=== PATIENT | male | born 1930 | race African-American/Black ===

== ENCOUNTER → 2016-05-07 | Outpatient (CLI) | payer MEDICARE, OTHER ==
[~2016-05-07] MED LIST: ASP81TEC PO; BENA10TA2 PO; BISA5TAB8 PO; BNZ10T PO; CIPR-225 PO; CIPR400P13 IV; CIPR500S2 PO; CIPR500T78 PO; CLIN150C17 PO; CLIN300C11 PO; CLOP75TA PO; DCS100C PO; DONE10TA5 PO; EZET10TA23 PO; EZET1TAB44 PO; FNT.05A2 IV; FURO40TA4 PO; GLYB1.253 PO; GLYB5TAB6 PO; GLYBURIDE; HYDR-3714 PO; HYDR-3812 PO; HYDR-707 PO; HYDR-757 PO; L.AC1CAP6 PO; LACT1CAP62 PO; LEVO500T2 PO; MEMA7CAP PO; METO-333 PO; METR500P4 IV; METR500T21 PO; MGCT300B PO; MULT-974 PO; NF-METANX PO; NITR-65 PO; NORM2DIS3 IV; OMEG-12 PO; OMEG-160 PO; ONDA4VIA28 IV; PANT40VI IV; POTA-51 PO; POTA20PA11 PO; SIMV40TA4 PO; VANC750V IV; [UNRECOGNIZED DRUG - CODE] TP
--- OUTSIDE RECORDS SUMMARY | 2016-05-07 10:13 | XMS REPORT | Continuity of Care Document ---
Author Author [facility] Organization [facility] Address Unknown Phone Unavailable Care Team Providers Care Chick Room Supervisor Name Role Phone Self, Referral PCP Unavailable Source Comments Some departments are not documenting in the electronic medical record. If you do not see the information that you expected, contact Release of Information in the Health Information Management department at [phone] for further assistance in locating additional records.[facility] Active Allergies and Adverse Reactions Not on File Current Medications Not on file Active Problems Not on file Social History Tobacco Use Types Packs/Day Years Used Date Never Assessed Plan of Care Health Maintenance Due Date Last Done Comments Physical (Comprehensive) 1936 Exam Pertussis Vaccine 1940 Tetanus Vaccine 1946 Shingles Vaccine 1989 Prevnar/Pneumovax (#1) 1994 Influenza Vaccine 11/02/2014 Results from Last 3 Months Not on file
[2016-05-07 10:24] LABS: BASOPHILS % (AUTO) 0 % (0-10); EOSINOPHILS # (AUTO) 0.3 10^3/uL (0.0-0.3); EOSINOPHILS % (AUTO) 4 % (0-10); LYMPHOCYTES # (AUTO) 2.2 X 10^3 (1.0-4.0); LYMPHOCYTES % (AUTO) 24 % (12-44); MEAN CORPUSCULAR HEMOGLOBIN 29 PG (25-34); MEAN CORPUSCULAR HGB CONC 32 G/DL (32-36); MEAN CORPUSCULAR VOLUME 90 FL (80-99); MEAN PLATELET VOLUME 9.5 FL (7.4-10.4); MONOCYTES # (AUTO) 0.8 X 10^3 (0.0-1.0); MONOCYTES % (AUTO) 9 % (0-12); NEUTROPHILS # (AUTO) 5.6 X 10^3 (1.8-7.8); NEUTROPHILS % (AUTO) 63 % (42-75); PLATELET COUNT 215 10^3/uL (130-400); RED BLOOD COUNT 4.11 10^6/uL (4.35-5.85); RED CELL DISTRIBUTION WIDTH 13.9 % (10.0-14.5)
[2016-05-07 10:53] LABS: ALANINE AMINOTRANSFERASE 19 U/L (0-55); ALBUMIN 3.4 G/DL (3.2-4.5); ANION GAP 13 MMOL/L (5-14); ASPARTATE AMINO TRANSFERASE 26 U/L (5-34); BILIRUBIN,TOTAL 0.8 MG/DL (0.1-1.0); BLOOD UREA NITROGEN 8 MG/DL (7-18); BUN/CREATININE RATIO 7; CALCIUM 8.8 MG/DL (8.5-10.1); CARBON DIOXIDE 26 MMOL/L (21-32); CHLORIDE 104 MMOL/L (98-107); CHOLESTEROL 172 MG/DL (< 200); CREATININE SERUM 1.08 MG/DL (0.60-1.30); DIRECT LDL 107 MG/DL (1-129); GFR ESTIMATED > 60; GLUCOSE 106 MG/DL (70-105); POTASSIUM 3.5 MMOL/L (3.6-5.0); SODIUM 143 MMOL/L (135-145); TOTAL PROTEIN 6.7 G/DL (6.4-8.2); TRIGLYCERIDES 136 MG/DL (<150); VLDL CHOLESTEROL 27 MG/DL (5-40)
[2016-05-07 11:13] LABS: THYROID STIMULATING HORMONE 4.57 UIU/ML (0.35-4.94)
== END ==
LOC: LAB 10:08
PROVIDERS: ATTEND Internal Medicine
DX: E11.65 Type 2 diabetes mellitus with hyperglycemia (principal); E78.1 Pure hyperglyceridemia; E78.00 Pure hypercholesterolemia, unspecified; N39.0 Urinary tract infection, site not specified
CPT/HCPCS: 36415; 80053; 80061; 83036; 84443; 85025

== ENCOUNTER 2016-05-15 17:39 | Emergency (ER) | payer MEDICARE, OTHER ==
[~2016-05-15] VITALS: Ht 172.7 cm; Wt 77.1 kg
[~2016-05-15 17:39] MED LIST changes: -CLIN300C11 PO; -L.AC1CAP6 PO
--- OUTSIDE RECORDS SUMMARY | 2016-05-15 17:45 | XMS REPORT | Continuity of Care Document ---
Author Author [facility] Organization [facility] Address Unknown Phone Unavailable Care Team Providers Care Caddy/Caddie Supervisor Name Role Phone Self, Referral PCP Unavailable Source Comments Some departments are not documenting in the electronic medical record. If you do not see the information that you expected, contact Release of Information in the Health Information Management department at [phone] for further assistance in locating additional records.[facility] Active Allergies and Adverse Reactions Not on [...]
--- NOTE | 2016-05-15 18:33 | ED Lower Extremity ---
General Chief Complaint: Lower Extremity Stated Complaint: L LEG,FOOT SWELLING Nursing Triage Note: PT STATES L LOWER CALF AND FOOT SWELLING FOR THE PAST FEW DAY. STATES HX OF CELLULITIS. Nursing Sepsis Screen: No Definite Risk Source: patient Exam Limitations: no limitations History of Present Illness Time seen by provider: 18:31 Initial Comments To ER with left lower extremity swelling and redness since this morning. No fevers. He is still able to her with the use of a cane. Onset: this morning Severity: moderate Pain/Injury Location: left leg, left ankle Method of Injury: unknown Allergies and Home Medications Allergies Coded Allergies: Penicillins (Verified Allergy, Unknown, 04/30/14) Home Medications Aspirin 81 Mg Tabec 81 MG PO HS (Reported) Benazepril HCl 10 Mg Tablet #30 10 MG PO DAILY Prescribed by: CALLIE MCKEON on 03/11/15 1026 Benazepril Hcl 10 Mg Tablet 10 MG PO DAILY (Reported) LAST FILLED 09-09-14 Ciprofloxacin HCl 500 Mg Tablet #20 500 MG PO BID Prescribed by: FERNANDO SOLIS on 08/09/15 0041 Clindamycin HCl 150 Mg Capsule #42 300 MG PO TID Prescribed by: BURTON MODI on 11/28/15 1738 Clindamycin HCl 300 Mg Capsule #21 300 MG PO TID Prescribed by: BURTON MODI on 05/15/161917 Clopidogrel Bisulfate 75 Mg Tablet 75 MG PO DAILY (Reported) Donepezil HCl 10 Mg Tablet 10 MG PO HS (Reported) Ezetimibe 10 Mg Tablet 10 MG PO DAILY (Reported) Furosemide 40 Mg Tablet 40 MG PO BID (Reported) LAST FILLED 12-17-14 Glyburide 1.25 Mg Tablet 0.625 MG PO DAILY (Reported) TAKES 1/2 (1.25MG) TABLET Hydrocodone/Acetaminophen 1 Each Tablet #60 1 EACH PO TID PRN PRN PAIN Prescribed by: CALLIE MCKEON on 03/11/15 1029 Hydrocodone/Acetaminophen 1 Each Tablet #14 0.5-1 EACH PO Q6H PRN PRN PAIN Prescribed by: BURTON MODI on 11/28/151737 L.acidoph & Paracasei,B.lactis 1 Each Capsule #20 1 EACH PO BID Prescribed by: BURTON MODI on 05/15/161917 Lactobacillus Acidophilus 1 Each Capsule #20 1 EACH PO BID Prescribed by: BURTON MODI on 11/28/15 1738 Memantine HCl 7 Mg Cap.spr.24 7 MG PO DAILY (Reported) LAST FILLED 11-01-14 Metoprolol Tartrate 25 Mg Tablet 25 MG PO BID (Reported) LAST FILLED 11-01-14 Multivitamin 1 Each Tablet 1 TAB PO DAILY (Reported) Potassium Chloride 20 Meq Tablet.er #14 20 MEQ PO DAILY Prescribed by: BURTON MODI on 11/28/15 1740 Simvastatin 40 Mg Tablet 40 MG PO HS (Reported) Constitutional: see HPINo chills, No fever EENTM: see HPI Respiratory: no symptoms reported Cardiovascular: no symptoms reported Genitourinary: no symptoms reported Musculoskeletal: see HPI Skin: no symptoms reported Psychiatric/Neurological: No Symptoms Reported Past Imqwtiw-Kdpyvn-Ddaxdj Hx Patient Social History Alcohol Use: Denies Use Recreational Drug Use: No Smoking Status: Never a Smoker Former Smoker/When Quit: Mar 04, 2006 2nd Hand Smoke Exposure: No Recent Foreign Travel: No Contact w/Someone Who Travel: No Recent Infectious Disease Expo: No Recent Hopitalizations: No Immunizations Up To Date Tetanus Booster (TDap): Unknown Date of Pneumonia Vaccine: Apr 04, 2011 Date of Influenza Vaccine: Jan 05, 2011 Seasonal Allergies Seasonal Allergies: No Surgeries HX Surgeries: Yes (SUPRAPUBIC CATHETER, pacemaker, 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", AMPUTATED TOES) Surgeries: Gallbladder, Orthopedic, Pacemaker Respiratory Hx Respiratory Disorders: No Cardiovascular Hx Cardiac Disorders: Yes (PACEMAKER) Cardiac Disorders: Cardiomyopathy, High Cholesterol, Hypertension, Irregular Heartbeat Neurological Hx Neurological Disorders: Yes Neurological Disorders: Dementia Reproductive System Hx Reproductive Disorders: No Genitourinary Hx Genitourinary Disorders: Yes (suprapubic catheter; RETENTION) Genitourinary Disorders: Neurogenic Bladder Gastrointestinal Hx Gastrointestinal Disorders: Yes Gastrointestinal Disorders: Gastrointestinal Bleed, Chronic Constipation, Irritable Bowel Musculoskeletal Hx Musculoskeletal Disorders: Yes (AMPUTATED TOES, GANGRENE) Endocrine Hx Endocrine Disorders: Yes Endocrine Disorders: Diabetes, Non-Insulin dep HEENT HX ENT Disorders: Yes ("HOLE IN LEFT EYE") Loss of Vision: Bilateral Hearing Impairment: Hard of Hearing Cancer Hx Cancer: No Psychosocial Hx Psychiatric Problems: Yes Behavioral Health Disorders: Depression Integumentary HX Skin/Integumentary Disorder: No Blood Transfusions Hx Blood Disorders: No Family Medical History Family Medial History: Diabetes mellitus 19 FATHER FH: cancer 19 MOTHER Physical Exam Vital Signs Vital Sign - Last 12Hours 05/15/16 18:22 Temp 98.2 Pulse 77 Resp 18 B/P 116/68 Capillary Refill : Less Than 3 Seconds General Appearance: WD/WN no apparent distress HEENT: PERRL/EOMI normal ENT inspection Neck: non-tender full range of motion Respiratory: no respiratory distress no accessory muscle use Gastrointestinal: normal bowel sounds non tender soft Hips: bilateral hip non-tender, bilateral hip normal inspection, bilateral hip normal range of motion Legs: right leg non-tender, right leg normal inspection, right leg normal range of motion, left leg pain, left leg soft tissue tenderness, left leg swelling Knees: bilateral knee non-tender, bilateral knee normal inspection, bilateral knee normal range of motion Ankles: left ankle soft tissue tenderness, left ankle swelling Feet: bilateral foot non-tender, bilateral foot normal inspection, bilateral foot normal range of motion Neurologic/Psychiatric: alert normal mood/affect oriented x 3 Skin: normal color warm/dry Progress/Results/Core Measures Results/Orders Lab Results Laboratory Tests Test 05/15/16 18:51 Range/Units Anion Gap 13 5-14 MMOL/L BUN/Creatinine Ratio 6 Basophils # (Auto) 0.0 0.0-0.1 10^3/uL Basophils (%) (Auto) 0 0-10 % Blood Urea Nitrogen 7 7-18 MG/DL Calcium Level 8.9 8.5-10.1 MG/DL Carbon Dioxide Level 27 21-32 MMOL/L Chloride Level 104 98-107 MMOL/L Creatinine 1.12 0.60-1.30 MG/DL Eosinophils # (Auto) 0.2 0.0-0.3 10^3/uL Eosinophils (%) (Auto) 3 0-10 % Estimat Glomerular Filtration Rate > 60 Glucose Level 148 H 70-105 MG/DL Hematocrit 37 L 40-54 % Hemoglobin 11.8 L 13.3-17.7 G/DL Lymphocytes # (Auto) 2.1 1.0-4.0 X 10^3 Lymphocytes (%) (Auto) 23 12-44 % Mean Corpuscular Hemoglobin 29 25-34 PG Mean Corpuscular Hemoglobin Concent 32 32-36 G/DL Mean Corpuscular Volume 92 80-99 FL Mean Platelet Volume 10.0 7.4-10.4 FL Monocytes # (Auto) 1.1 H 0.0-1.0 X 10^3 Monocytes (%) (Auto) 12 0-12 % Neutrophils # (Auto) 5.7 1.8-7.8 X 10^3 Neutrophils (%) (Auto) 62 42-75 % Platelet Count 178 130-400 10^3/uL Potassium Level 3.3 L 3.6-5.0 MMOL/L Red Blood Count 4.01 L 4.35-5.85 10^6/uL Red Cell Distribution Width 14.5 10.0-14.5 % Sodium Level 144 135-145 MMOL/L White Blood Count 9.2 4.3-11.0 10^3/uL My Orders Orders-BURTON MODI APRN Cbc With Automated Diff (05/15/16 18:31) Basic Metabolic Panel (05/15/16 18:31) Saline Lock/Iv-Start (05/15/16 18:31) Us Venous Lower Ext Lt (05/15/16 18:31) Ceftriaxone Injection (Rocephin Injectio (05/15/16 19:30) Lidocaine 1% Injection (Xylocaine 1% Inj (05/15/16 19:30) Medications Given in ED Current Medications Medications Dose Ordered Sig/Ese Route Start Time Stop Time Status Last Admin Dose Admin Ceftriaxone Sodium 1,000 mg ONCE ONCE IM 05/15/16 19:30 05/15/16 19:31 DC 05/15/16 19:43 1,000 MG Lidocaine HCl 2.1 ml ONCE ONCE INJ 05/15/16 19:30 05/15/16 19:31 DC 05/15/16 19:44 2.1 ML Vital Signs/I&O Vital Sign - Last 12Hours 05/15/16 18:22 Temp 98.2 Pulse 77 Resp 18 B/P 116/68 Blood Pressure Mean: 84 Departure Impression Impression: Primary Impression: Cellulitis of left lower extremity Disposition: 01 HOME, SELF-CARE Condition: Stable Departure-Patient Inst. Decision time for Depature: 19:17 Referrals: CALLIE MCKEON DO (PCP/Family) Primary Care Physician Patient Instructions: Cellulitis (Skin Infection), Adult (DC), Dependent Edema (DC) Add. Discharge Instructions: 1. Return to ER for any concerns such as fevers, worsening redness or swelling 2. Call Dr. Mckeon tomorrow morning to schedule an appointment for follow-up 3. Take the antibiotics as directed. All discharge instructions reviewed with patient and/or family. Voiced understanding. Scripts Clindamycin HCl 300 Mg [id number] Mg PO TID #21 CAP . Prov:BURTON MODI APRN 05/15/16 L.acidoph & Paracasei,B.lactis (Probiotic)1 Each Capsule1 Each PO BID #20 CAP Prov:BURTON MODI APRN 05/15/16 Copy Copies To 1: CALLIE MCKEON PETER J APRN May 15, 2016 18:33
[2016-05-15 18:55] LABS: BASOPHILS % (AUTO) 0 % (0-10); EOSINOPHILS # (AUTO) 0.2 10^3/uL (0.0-0.3); EOSINOPHILS % (AUTO) 3 % (0-10); LYMPHOCYTES # (AUTO) 2.1 X 10^3 (1.0-4.0); LYMPHOCYTES % (AUTO) 23 % (12-44); MEAN CORPUSCULAR HEMOGLOBIN 29 PG (25-34); MEAN CORPUSCULAR HGB CONC 32 G/DL (32-36); MEAN CORPUSCULAR VOLUME 92 FL (80-99); MONOCYTES # (AUTO) 1.1 X 10^3 (0.0-1.0); MONOCYTES % (AUTO) 12 % (0-12); NEUTROPHILS # (AUTO) 5.7 X 10^3 (1.8-7.8); NEUTROPHILS % (AUTO) 62 % (42-75); PLATELET COUNT 178 10^3/uL (130-400); RED BLOOD COUNT 4.01 10^6/uL (4.35-5.85); RED CELL DISTRIBUTION WIDTH 14.5 % (10.0-14.5); WHITE BLOOD COUNT 9.2 10^3/uL (4.3-11.0)
--- NOTE | 2016-05-15 19:09 | Diagnostic Imaging Report ---
PROCEDURE: US left lower extremity venous. INDICATION: Left foot pain and swelling. COMPARISON: None. TECHNIQUE: The left lower extremity deep venous system was interrogated from the common femoral vein through the popliteal vein. These images were assessed for grayscale appearance, color and spectral Doppler blood flow, compression, and augmentation. FINDINGS: There is no evidence of intraluminal filling defect. Normal compression and augmentation is noted throughout. Soft tissues are unremarkable. IMPRESSION: 1. No sonographic evidence of deep venous thrombosis in the left lower extremity. Dictated by: Dictated on workstation # [id number]
[2016-05-15 19:12] LABS: ANION GAP 13 MMOL/L (5-14); BLOOD UREA NITROGEN 7 MG/DL (7-18); BUN/CREATININE RATIO 6; CALCIUM 8.9 MG/DL (8.5-10.1); CARBON DIOXIDE 27 MMOL/L (21-32); CHLORIDE 104 MMOL/L (98-107); CREATININE SERUM 1.12 MG/DL (0.60-1.30); GFR ESTIMATED > 60; GLUCOSE 148 MG/DL (70-105); POTASSIUM 3.3 MMOL/L (3.6-5.0); SODIUM 144 MMOL/L (135-145)
[2016-05-15] MEDS ORDERED: CLIN300C11 PO ×2 (19:18→20:35)
[2016-05-15] MEDS ORDERED: L.AC1CAP6 PO (19:18)
[2016-05-15] MEDS ORDERED: LIDOCAINE 1% INJ 20 ML (XYLOCAINE) VIAL INJ ONE (19:30)
[2016-05-15] MEDS ORDERED: cefTRIAXone 1 GM (ROCEPHIN) VIAL IM ONE (19:30)
[2016-05-15 20:34] VITALS: BP 118/68
== END 2016-05-15 20:34 | disposition home or self-care (01) ==
LOC: EDUNIT# 17:39 → ER 17:41
DX: L03.116 Cellulitis of left lower limb (principal); I10 Essential (primary) hypertension; E11.9 Type 2 diabetes mellitus without complications; Z79.82 Long term (current) use of aspirin; Z79.84 Long term (current) use of oral hypoglycemic drugs; Z79.899 Other long term (current) drug therapy; Z95.0 Presence of cardiac pacemaker
CPT/HCPCS: 36415; 80048; 85025; 96372; 99283

== ENCOUNTER 2016-06-19 14:39 | Emergency (ER) | payer MEDICARE, OTHER ==
[~2016-06-19] VITALS: Ht 182.9 cm; Wt 81.6 kg
[~2016-06-19 14:39] MED LIST changes: +CLIN300C11 PO; +L.AC1CAP6 PO
[2016-06-19 15:08] LABS: BILIRUBIN,URINE NEGATIVE (NEGATIVE); KETONES,URINE NEGATIVE (NEGATIVE); LEUKOCYTE ESTERASE ,URINE 3+ (NEGATIVE); NITRITE,URINE NEGATIVE (NEGATIVE); PH,URINE 7 (5-9); PROTEIN,URINE 2+ (NEGATIVE); UROBILINOGEN,URINE NORMAL (NORMAL)
--- NOTE | 2016-06-19 16:28 | ED GU-Male ---
General Chief Complaint: Abdominal/GI Problems Stated Complaint: ABD PAIN UNABLE TO URINATE/CONSTIPATION Nursing Triage Note: c/o abd pain. Pt had suprapubic catheter replaced today. No urine noted in walker bag. Source: patient, family Exam Limitations: no limitations History of Present Illness Time seen by provider: 14:49 Initial Comments This 85-year-old woman presents to the emergency room along with his son with complaints of dysfunctional suprapubic catheter. The catheter was replaced by home health at around 10:00. It has not drained since. He also complains of some discomfort around the superior pubic catheter insertion. Son also reports she has not had a bowel movement for 2 days. Allergies and Home Medications Allergies Coded Allergies: Penicillins (Verified Allergy, Unknown, 04/30/14) Home Medications Aspirin 81 Mg Tabec, 81 MG PO HS, (Reported) Benazepril HCl 10 Mg Tablet, 10 MG PO DAILY, #30 Prescribed by: CALLIE MCKEON on 03/11/15 1026 Benazepril Hcl 10 Mg Tablet, 10 MG PO DAILY, (Reported) LAST FILLED 09-09-14 Ciprofloxacin HCl 500 Mg Tablet, 500 MG PO BID, #20 Prescribed by: FERNANDO SOLIS on 08/09/15 0041 Clindamycin HCl 150 Mg Capsule, 300 MG PO TID, #42 Prescribed by: BURTON MODI on 11/28/15 1738 Clindamycin HCl 300 Mg Capsule, 300 MG PO TID, #21 . Prescribed by: BURTON MODI on 05/15/16 2035 Clopidogrel Bisulfate 75 Mg Tablet, 75 MG PO DAILY, (Reported) Donepezil HCl 10 Mg Tablet, 10 MG PO HS, (Reported) Ezetimibe 10 Mg Tablet, 10 MG PO DAILY, (Reported) Furosemide 40 Mg Tablet, 40 MG PO BID, (Reported) LAST FILLED 12-17-14 Glyburide 1.25 Mg Tablet, 0.625 MG PO DAILY, (Reported) TAKES 1/2 (1.25MG) TABLET Hydrocodone/Acetaminophen 1 Each Tablet, 1 EACH PO TID PRN for PAIN, #60 Prescribed by: CALLIE MCKEON on 03/11/15 1029 Hydrocodone/Acetaminophen 1 Each Tablet, 0.5-1 EACH PO Q6H PRN for PAIN, #14 Prescribed by: BURTON MODI on 11/28/15 1738 L.acidoph & Paracasei,B.lactis 1 Each Capsule, 1 EACH PO BID, #20 Prescribed by: BURTON MODI on 05/15/16 191 Lactobacillus Acidophilus 1 Each Capsule, 1 EACH PO BID, #20 Prescribed by: BURTON MODI on 11/28/15 1738 Memantine HCl 7 Mg Cap.spr.24, 7 MG PO DAILY, (Reported) LAST FILLED 11-01-14 Metoprolol Tartrate 25 Mg Tablet, 25 MG PO BID, (Reported) LAST FILLED 11-01-14 Multivitamin 1 Each Tablet, 1 TAB PO DAILY, (Reported) Potassium Chloride 20 Meq Tablet.er, 20 MEQ PO DAILY, #14 Prescribed by: BURTON MODI on 11/28/15 174 Simvastatin 40 Mg Tablet, 40 MG PO HS, (Reported) Constitutional: no symptoms reported Respiratory: no symptoms reported Cardiovascular: no symptoms reported Gastrointestinal: no symptoms reported Genitourinary: see HPI Musculoskeletal: no symptoms reported Skin: no symptoms reported Past Nwreqpy-Sqvxra-Yesixq Hx Patient Social History Alcohol Use: Denies Use Recreational Drug Use: No Smoking Status: Unknown if Ever Smoked Former Smoker/When Quit: Mar 04, 2006 2nd Hand Smoke Exposure: No Recent Foreign Travel: No Contact w/Someone Who Travel: No Recent Infectious Disease Expo: No Recent Hopitalizations: No Immunizations Up To Date Tetanus Booster (TDap): Unknown Date of Pneumonia Vaccine: Apr 04, 2011 Date of Influenza Vaccine: Jan 05, 2011 Seasonal Allergies Seasonal Allergies: No Surgeries HX Surgeries: Yes (SUPRAPUBIC CATHETER, pacemaker, 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", AMPUTATED TOES) Surgeries: Bladder Surgery, Gallbladder, Orthopedic, Pacemaker Respiratory Hx Respiratory Disorders: No Cardiovascular Hx Cardiac Disorders: Yes (PACEMAKER) Cardiac Disorders: Cardiomyopathy, High Cholesterol, Hypertension, Irregular Heartbeat Neurological Hx Neurological Disorders: Yes Neurological Disorders: Dementia Reproductive System Hx Reproductive Disorders: No Genitourinary Hx Genitourinary Disorders: Yes (suprapubic catheter; RETENTION) Genitourinary Disorders: Neurogenic Bladder Gastrointestinal Hx Gastrointestinal Disorders: Yes Gastrointestinal Disorders: Gastrointestinal Bleed, Chronic Constipation, Irritable Bowel Musculoskeletal Hx Musculoskeletal Disorders: Yes (AMPUTATED TOES, GANGRENE) Endocrine Hx Endocrine Disorders: Yes Endocrine Disorders: Diabetes, Non-Insulin dep HEENT HX ENT Disorders: Yes ("HOLE IN LEFT EYE") Loss of Vision: Bilateral Hearing Impairment: Hard of Hearing Cancer Hx Cancer: No Psychosocial Hx Psychiatric Problems: Yes Behavioral Health Disorders: Depression Integumentary HX Skin/Integumentary Disorder: No Blood Transfusions Hx Blood Disorders: No Family Medical History Family Medial History: Diabetes mellitus 19 FATHER FH: cancer 19 MOTHER Physical Exam Vital Signs Vital Sign - Last 12Hours 06/19/16 14:53 Temp 97.5 Pulse 70 Resp 16 B/P (MAP) 175/92 O2 Delivery Room Air Capillary Refill : Less Than 3 Seconds General Appearance: WD/WN, no apparent distress HEENT: PERRL/EOMI, normal ENT inspection Gastrointestinal: tenderness (tenderness around the suprapubic catheter site along with abdominal muscle tension.) Extremities: normal inspection, no pedal edema Neurologic/Psychiatric: alert, normal mood/affect Skin: normal color, warm/dry Progress/Results/Core Measures Results/Orders Lab Results Laboratory Tests Test 06/19/16 15:00 Range/Units Urine Color YELLOW Urine Clarity CLEAR Urine pH 7 5-9 Urine Specific Fisher 1.010 L 1.016-1.022 Urine Protein 2+ H NEGATIVE Urine Glucose (UA) NEGATIVE NEGATIVE Urine Ketones NEGATIVE NEGATIVE Urine Nitrite NEGATIVE NEGATIVE Urine Bilirubin NEGATIVE NEGATIVE Urine Urobilinogen NORMAL NORMAL MG/DL Urine Leukocyte Esterase 3+ H NEGATIVE Urine RBC (Auto) 5+ H NEGATIVE Urine RBC TNTC H /HPF Urine WBC 5-10 H /HPF Urine Squamous Epithelial Cells NONE /HPF Urine Crystals NONE /LPF Urine Bacteria NEGATIVE /HPF Urine Casts NONE /LPF Urine Mucus NEGATIVE /LPF Urine Culture Indicated YES My Orders Orders - FERNANDO ARREOLA MD Ua Culture If Indicated (06/19/16 14:50) Urine Culture (06/19/16 15:00) Ct Cystogram (06/19/16 15:18) Vital Signs/I&O Vital Sign - Last 12Hours 06/19/16 14:53 Temp 97.5 Pulse 70 Resp 16 B/P (MAP) 175/92 O2 Delivery Room Air Blood Pressure Mean: 119 Progress Note : Progress Note Attempt to flush the suprapubic catheter failed. Catheter was repositioned several times without successful flushing. Injection of sterile saline into the catheter caused pain. Catheter was ultimately removed and replaced. The new catheter inserted easily. It flushed without pain but was not returning urine. The catheter was eventually positioned in a very shallow position and began to function normally without pain. Because there was uncertain injury to the surrounding tissues from the original replacement at home, a cystogram was performed with CT with contrast injected through the catheter. 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 See report below. Patient was dismissed. It was suspected that the original catheter was dysfunctional because the tip was inserted into the prostatic urethra causing obstruction. There was some leakage of fluid from the penis which would support that hypothesis. Diagnostic Imaging Diagonstic Imaging: CT Plain Films/CT/US/NM/MRI: pelvis Comments CT of the pelvis viewed by me and discussed with the radiologist. Report reviewed. See report below: NAME: SHAUN BRYANT V [facility] REC#: [id number] PT STATUS: REG ER : 1929 PHYSICIAN: FERNANDO ARREOLA MD ADMIT DATE: 06/19/16/ER Draft Date of Exam:06/19/16 CT CYSTOGRAM EXAMINATION: CT cystogram performed without and with contrast injected through the suprapubic catheter into the urinary bladder. INDICATION: Abdominal pain, poor urine return from the suprapubic catheter for exchange. FINDINGS: The unenhanced phase demonstrates a suprapubic catheter appearing to be within the urinary bladder. A scan was obtained after injection of contrast which opacifies the urinary bladder. This demonstrates significant thickening of the urinary bladder wall which is a common finding after suprapubic catheter from inflammatory and/or infectious cystitis. There is also filling of a diverticulum projecting into the superior right side aspect of the urinary bladder. There is also filling of the prostatic, membranous, and bulbar urethra. The bulbar urethra appears slightly prominent in caliber. The membranous urethra portion appears slightly dilated, particularly when evaluated on the sagittal view image 25, with a flattened appearance of the undersurface of the prostate. There is no extravasation outside the urethra, however, identified into the adjacent soft tissues. The etiology is uncertain. 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 No significant free fluid or fluid collection in the pelvis is seen. The visualized portions of the rectum and sigmoid demonstrate a few diverticuli with no significant obstruction or inflammation. The osseous structures demonstrate degenerative changes. IMPRESSION: 1. The suprapubic catheter and balloon are within the urinary bladder in good position. 2. 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 3. There is slight dilatation noted of the upper aspect of the membranous urethra along the undersurface of the prostate with no contrast extravasation outside the urethra to suggest a significant injury or fistula. 4. The findings were discussed with Dr. Arreola by Dr. Cleaning at the time of dictation. Dictated on workstation # [id number] Dict: 06/19/16 1600 Trans: 06/19/16 1644 [id number] Interpreted by: SHANNON CLEANING MD Departure Impression Impression: Primary Impression: Suprapubic catheter dysfunction Qualified Codes: T83.010A - Breakdown (mechanical) of cystostomy catheter, initial encounter Disposition: 01 HOME, SELF-CARE Condition: Improved Departure-Patient Inst. Decision time for Depature: 16:10 Referrals: CALLIE MCKEON DO (PCP/Family) Primary Care Physician Add. Discharge Instructions: Continue care of the suprapubic catheter as previously instructed. Try to keep the leg bag below the level of the bladder. Empty the bag frequently. Return to care if you have any further problems. All discharge instructions reviewed with patient and/or family. Voiced understanding. FERNANDO ARREOLA MD Jun 19, 2016 16:28
--- NOTE | 2016-06-19 16:45 | Diagnostic Imaging Report ---
EXAMINATION: CT cystogram performed without and with contrast injected through the suprapubic catheter into the urinary bladder. INDICATION: Abdominal pain, poor urine return from the suprapubic catheter for exchange. FINDINGS: The unenhanced phase demonstrates a suprapubic catheter appearing to be within the urinary bladder. A scan was obtained after injection of contrast which opacifies the urinary bladder. This demonstrates significant thickening of the urinary bladder wall which is a common finding after suprapubic catheter from inflammatory and/or infectious cystitis. There is also filling of a diverticulum projecting into the superior right side aspect of the urinary bladder. There is also filling of the prostatic, membranous, and bulbar urethra. The bulbar urethra appears slightly prominent in caliber. The membranous urethra portion appears slightly dilated, particularly when evaluated on the sagittal view image 25, with a flattened appearance of the undersurface of the prostate. There is no extravasation outside the urethra, however, identified into the adjacent soft tissues. The etiology is uncertain. 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 No significant free fluid or fluid collection in the pelvis is seen. The visualized portions of the rectum and sigmoid demonstrate a few diverticuli with no significant obstruction or inflammation. The osseous structures demonstrate degenerative changes. IMPRESSION: 1. The suprapubic catheter and balloon are within the urinary bladder in good position. 2. 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 3. There is slight dilatation noted of the upper aspect of the membranous urethra along the undersurface of the prostate with no contrast extravasation outside the urethra to suggest a significant injury or fistula. The findings were discussed with Dr. Arreola by Dr. Cleaning at the time of dictation. Dictated by: Dictated on workstation # [id number]
[2016-06-19 17:00] VITALS: BP 164/90
== END 2016-06-19 17:00 | disposition home or self-care (01) ==
LOC: EDUNIT# 14:39 → ER 14:41
DX: T83.018A Breakdown (mechanical) of other urinary catheter, initial encounter (principal); N32.3 Diverticulum of bladder; E11.9 Type 2 diabetes mellitus without complications; I10 Essential (primary) hypertension; F03.90 Unspecified dementia, unspecified severity, without behavioral disturbance, psychotic disturbance, mood disturbance, and anxiety; Z79.84 Long term (current) use of oral hypoglycemic drugs; Z79.82 Long term (current) use of aspirin; Z79.899 Other long term (current) drug therapy; Z95.0 Presence of cardiac pacemaker
CPT/HCPCS: 72192; 81000; 87088; 99285

== ENCOUNTER 2016-08-30 12:43 | Outpatient (RCR) | payer MEDICARE, OTHER ==
[2017-01-14] MEDS ORDERED: DONE10TA41 PO (18:03)
[2017-01-14] MEDS ORDERED: SIMV40TA4 PO (18:03)
[2017-01-14] MEDS ORDERED: BENA10TA2 PO (18:03)
[2017-01-14] MEDS ORDERED: METO-333 PO (18:03)
[2017-01-14] MEDS ORDERED: MEMA10TA22 PO (18:03)
[2017-01-14] MEDS ORDERED: CLOP75TA28 PO (18:03)
[2017-01-14] MEDS ORDERED: FURO40TA4 PO (18:03)
[2017-01-14] MEDS ORDERED: EZET10TA27 PO (18:20)
[2017-01-15] MEDS ORDERED: CIPR500T4 PO (16:25)
== END 2016-09-24 16:00 | disposition home or self-care (01) ==
LOC: WOUNDCARE 12:43
PROVIDERS: ATTEND Nurse Practitioner
DX: L97.212 Non-pressure chronic ulcer of right calf with fat layer exposed (principal); L97.221 Non-pressure chronic ulcer of left calf limited to breakdown of skin; I87.333 Chronic venous hypertension (idiopathic) with ulcer and inflammation of bilateral lower extremity
CPT/HCPCS: 11042; 97597; 99213

== ENCOUNTER → 2016-10-03 | Outpatient (CLI) | payer MEDICARE, OTHER ==
[2016-10-03 13:09] LABS: ALANINE AMINOTRANSFERASE 13 U/L (0-55); ALBUMIN 4.2 GM/DL (3.2-4.5); ANION GAP 10 MMOL/L (5-14); ASPARTATE AMINO TRANSFERASE 21 U/L (5-34); BILIRUBIN,TOTAL 0.8 MG/DL (0.1-1.0); BLOOD UREA NITROGEN 13 MG/DL (7-18); BUN/CREATININE RATIO 11; CALCIUM 9.7 MG/DL (8.5-10.1); CARBON DIOXIDE 28 MMOL/L (21-32); CHLORIDE 103 MMOL/L (98-107); CHOLESTEROL 202 MG/DL (< 200); CREATININE SERUM 1.15 MG/DL (0.60-1.30); DIRECT LDL 131 MG/DL (1-129); GFR ESTIMATED > 60; GLUCOSE 86 MG/DL (70-105); POTASSIUM 4.5 MMOL/L (3.6-5.0); SODIUM 141 MMOL/L (135-145); TOTAL PROTEIN 7.8 GM/DL (6.4-8.2); TRIGLYCERIDES 147 MG/DL (<150); VLDL CHOLESTEROL 29 MG/DL (5-40)
[2016-10-04 07:25] LABS: MICROALBUMIN/CREATININE RATIO 162.1 mg/gCR (0.0-30.0)
== END ==
LOC: LAB 12:24
PROVIDERS: ATTEND Internal Medicine
DX: E78.00 Pure hypercholesterolemia, unspecified (principal); E11.65 Type 2 diabetes mellitus with hyperglycemia
CPT/HCPCS: 36415; 80053; 80061; 82043; 83036

== ENCOUNTER → 2017-01-09 | Outpatient (CLI) | payer MEDICARE, OTHER ==
[~2017-01-09] MED LIST changes: +CIPR500T4 PO; +CLOP75TA28 PO; +DONE10TA41 PO; +EZET10TA27 PO; +MEMA10TA22 PO
== END ==
LOC: WOUNDCARE 14:40
PROVIDERS: ATTEND Surgery
DX: L97.211 Non-pressure chronic ulcer of right calf limited to breakdown of skin (principal); I87.331 Chronic venous hypertension (idiopathic) with ulcer and inflammation of right lower extremity; I89.0 Lymphedema, not elsewhere classified; I70.232 Atherosclerosis of native arteries of right leg with ulceration of calf; E11.622 Type 2 diabetes mellitus with other skin ulcer; F03.90 Unspecified dementia, unspecified severity, without behavioral disturbance, psychotic disturbance, mood disturbance, and anxiety
CPT/HCPCS: 97597

== ENCOUNTER → 2017-01-16 | Outpatient (CLI) | payer MEDICARE, OTHER | LOC: WOUNDCARE 15:34 | PROVIDERS: ATTEND Surgery | DX: E11.622 Type 2 diabetes mellitus with other skin ulcer (principal); I87.331 Chronic venous hypertension (idiopathic) with ulcer and inflammation of right lower extremity; I70.232 Atherosclerosis of native arteries of right leg with ulceration of calf; L97.211 Non-pressure chronic ulcer of right calf limited to breakdown of skin; I89.0 Lymphedema, not elsewhere classified; F03.90 Unspecified dementia, unspecified severity, without behavioral disturbance, psychotic disturbance, mood disturbance, and anxiety | CPT/HCPCS: 97597 ==

== ENCOUNTER → 2017-01-28 | Outpatient (CLI) | payer MEDICARE, OTHER | LOC: WOUNDCARE 14:33 | PROVIDERS: ATTEND Surgery | DX: E11.622 Type 2 diabetes mellitus with other skin ulcer (principal); I87.331 Chronic venous hypertension (idiopathic) with ulcer and inflammation of right lower extremity; I70.232 Atherosclerosis of native arteries of right leg with ulceration of calf; L97.211 Non-pressure chronic ulcer of right calf limited to breakdown of skin; I89.0 Lymphedema, not elsewhere classified; F03.90 Unspecified dementia, unspecified severity, without behavioral disturbance, psychotic disturbance, mood disturbance, and anxiety | CPT/HCPCS: 99212 ==

== ENCOUNTER 2017-03-08 22:04 | Emergency (ER) | payer MEDICARE, OTHER ==
[~2017-03-08] VITALS: Ht 175.3 cm; Wt 72.6 kg
[~2017-03-08 22:04] MED LIST changes: +ACHD5005 PO; -HYDR-3812 PO
--- NOTE | 2017-03-09 00:16 | ED GU-Male ---
General Chief Complaint: -Male Stated Complaint: CATHETER COMING OUT Nursing Triage Note: Son reports pt has suprapubic catheter that broke and the end came out. home health rn was unable to re-insert cath stating that the "hole was narrowing." pt brought in by son per wc. Source: patient (VERY LIMITED HISTORIAN), family (SON) History of Present Illness Time seen by provider: 23:15 Initial Comments PT ARRIVES VIA POV FROM HOME PT HAS HAD A SUPRAPUBIC CATHETER FOR MANY YEARS--? DUE TO OUTLET OBSTRUCTION ? SOMETIME LAST NIGHT, PT'S SUPRAPUBIC CATHETER FELL OUT--WAS NOTED THIS AM ON WAKING HOME HEALTH NURSE TRIED TO REPLACE IT THIS AFTERNOON AND WAS UNABLE TO, SO PT COMES IN TONIGHT TO HAVE IT REPLACED NO PAIN NO FEVER UROLOGIST DR. BUSH Allergies and Home Medications Allergies Coded Allergies: Penicillins (Verified Allergy, Unknown, 04/30/14) Home Medications Benazepril HCl 10 Mg Tablet, 10 MG PO DAILY, (Reported) Clopidogrel Bisulfate 75 Mg Tablet, 75 MG PO DAILY, (Reported) Donepezil HCl 10 Mg Tablet, 10 MG PO HS, (Reported) Ezetimibe 10 Mg Tablet, 10 MG PO DAILY, (Reported) LAST FILLED 10/30/16 #30 Furosemide 40 Mg Tablet, 40 MG PO BID, (Reported) Memantine HCl 10 Mg Tablet, 10 MG PO DAILY, (Reported) Metoprolol Tartrate 25 Mg Tablet, 25 MG PO BID, (Reported) Simvastatin 40 Mg Tablet, 40 MG PO HS, (Reported) Constitutional: no symptoms reported Gastrointestinal: no symptoms reported, No abdominal pain Genitourinary: see HPI Skin: no symptoms reported Past Wrxsokj-Oankpj-Kzwyrk Hx Patient Social History Alcohol Use: Denies Use Recreational Drug Use: No Smoking Status: Former Smoker Type Used: Cigarettes Former Smoker, Quit: Mar 04, 2002 2nd Hand Smoke Exposure: No Recent Foreign Travel: No Contact w/Someone Who Travel: No Recent Infectious Disease Expo: No Recent Hopitalizations: No Physical Abuse: No Sexual Abuse: No Mistreated: No Fear: No Immunizations Up To Date Tetanus Booster (TDap): Unknown Date of Pneumonia Vaccine: Apr 04, 2011 Date of Influenza Vaccine: Jan 05, 2011 Seasonal Allergies Seasonal Allergies: No Surgeries History of Surgeries: Yes (SUPRAPUBIC CATHETER, pacemaker, 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 ", AMPUTATED TOES) Surgeries: Bladder Surgery, Gallbladder, Orthopedic, Pacemaker, Vascular Surgery Respiratory History of Respiratory Disorde: Yes Respiratory Disorders: Pneumonia Cardiovascular History of Cardiac Disorders: Yes (PACEMAKER) Cardiac Disorders: Cardiomyopathy, High Cholesterol, Hypertension, Irregular Heartbeat Neurological History of Neurological Disord: Yes Neurological Disorders: Dementia Reproductive System Hx Reproductive Disorders: No Genitourinary History of Genitourinary Disor: Yes (? OUTLET OBSTRUCTION ? ) Genitourinary Disorders: Bladder Infection, Renal Failure, Neurogenic Bladder, UTI-Chronic Gastrointestinal History of Gastrointestinal Di: Yes (C diff colitis) Gastrointestinal Disorders: Gastrointestinal Bleed, Chronic Constipation, Irritable Bowel Musculoskeletal History of Musculoskeletal Dis: Yes (AMPUTATED TOES, GANGRENE) Musculoskeletal Disorders: Amputee, Arthritis, Chronic Back Pain Endocrine History of Endocrine Disorders: Yes Endocrine Disorders: Diabetes, Non-Insulin dep HEENT History of HEENT Disorders: Yes HEENT Disorders: Glaucoma Loss of Vision: Bilateral Hearing Impairment: Hard of Hearing Cancer History of Cancer: No Psychosocial History of Psychiatric Problem: Yes Behavioral Health Disorders: Depression Suicide Risk Score: 1 Integumentary History of Skin or Integumenta: Yes Skin/Integumentary Disorders: Recent Skin Changes Blood Transfusions History of Blood Disorders: No Family Medical History Family Medial History: Diabetes mellitus 19 FATHER FH: cancer 19 MOTHER Physical Exam Vital Signs Vital Sign - Last 12Hours 03/08/17 03/09/17 22:57 00:27 Temp 98.2 Pulse 65 Resp 18 B/P (MAP) 151/80 (103) Pulse Ox 96 O2 Delivery Room Air Capillary Refill : Less Than 3 Seconds General Appearance: WD/WN, no apparent distress Gastrointestinal: normal bowel sounds, non tender, soft, other (SUPRAPUBIC CATH SITE WITHOUT EXTERNAL EVIDENCE OF TRAUMA OR EVIDENCE OF INFECTION) Neurologic/Psychiatric: no motor/sensory deficits, alert, normal mood/affect Skin: normal color, warm/dry Additional Procedures : Progress SUPRAPUBIC CATHETER REPLACED WITH SOME MILD DIFFICULTY, TUBE HAS BEEN OUT FOR APPROXIMATELY 24 HOURS, AND HAS HAD ATTEMPTS TO REPLACE AT HOME BY HOME HEALTH NURSE. Progress/Results/Core Measures Suspected Sepsis Recent Fever Within 48 Hours: No Infection Criteria Present: None New/Unexplained Altered Menta: No Sepsis Screen: No Definite Risk Sepsis Diagnosis: SIRS Temperature: Pulse: 65 Respiratory Rate: 18 Blood Pressure 151 /80 Mean: 103 Results/Orders My Orders Orders - SILVA HENDERSON DO Catheter(Urinary) Insert & Ass 03,15 (03/08/17 23:13) Vital Signs/I&O Vital Sign - Last 12Hours 03/08/17 03/09/17 22:57 00:27 Temp 98.2 Pulse 65 66 Resp 18 16 B/P (MAP) 151/80 (103) Pulse Ox 96 96 O2 Delivery Room Air Room Air Capillary Refill : Less Than 3 Seconds Blood Pressure Mean: 103 Departure Impression Impression: Primary Impression: Suprapubic catheter dysfunction Disposition: HOME, SELF-CARE Condition: Stable Departure-Patient Inst. Referrals: CALLIE MCKEON DO (PCP/Family) Primary Care Physician RUDOLPH BUSH MD Patient Instructions: How to Care for Your Suprapubic Urinary Catheter Add. Discharge Instructions: FOLLOW UP WITH DR. BUSH NEXT WEEK FOR FURTHER CARE All discharge instructions reviewed with patient and/or family. Voiced understanding. SILVA HENDERSON DO Mar 09, 2017 00:16
[2017-03-09 00:27] VITALS: BP 149/84
--- OUTSIDE RECORDS SUMMARY | 2017-03-09 00:57 | XMS REPORT | Clinical Summary ---
Author Author [facility] Organization [facility] Address Unknown Phone Unavailable Care Team Providers Care American Sign Language Interpreter Name Role Phone PCP Unavailable Source Comments Some departments are not documenting in the electronic medical record. If you do not see the information that you expected, contact Release of Information in the Health Information Management department at [phone] for further assistance in locating additional records.[facility] Allergies Not on File Current Medications Not on file Active Problems Not on file Social History Tobacco Use Types Packs/Day Years Used Date Never Assessed Sex Assigned at Date Recorded Not on file Last Filed Vital Signs Not on file Plan of Treatment Health Maintenance Due Date Last Done Comments PHYSICAL (COMPREHENSIVE) 1936 EXAM PERTUSSIS VACCINE 1940 TETANUS VACCINE 1946 SHINGLES VACCINE 1989 PREVNAR/PNEUMOVAX (#1) 1994 INFLUENZA VACCINE 10/02/2016 Results Not on filefrom Last 3 Months
--- OUTSIDE RECORDS SUMMARY | 2017-03-09 01:10 | XMS REPORT | Continuity of Care Document ---
Author Author [facility] Organization [facility] Address Unknown Phone Unavailable Allergies Active Description Code Type Severity Reaction Onset Reported/Identified Relationship to Patient Clinical Status Yes Penicillins [id number] Drug Allergy Unknown N/A 04/30/2014 Medications There is no data. Problems Date Dx Coded Attending Type Code Diagnosis Diagnosed By 01/31/1199 LILIANA ALCOCER MD, Ot I70.232 ATHSCL [place] ARTERIES OF RIGHT LEG W UL 01/31/1199 LILIANA ALCOCER MD, Ot I72.4 ANEURYSM OF ARTERY OF LOWER EXTREMITY 01/31/1199 LILIANA ALCOCER MD Ot I87.311 CHRONIC VENOUS HYPERTENSION W ULCER OF R 01/31/1199 LILIANA ALCOCER MD Ot L97.211 NON-PRS CHRONIC ULCER OF RIGHT CALF LIMI 01/31/1199 LILIANA ALCOCER MD Ot T65.222A TOXIC EFFECT OF TOBACCO CIGARETTES, SELF 01/31/1599 SHIVA DELGADO APRN Ot I87.333 CHRONIC VENOUS HTN W ULCER AND INFLAM OF 01/31/1599 SHIVA DELGADO APRN Ot L97.212 NON-PRESSURE CHRONIC ULCER OF RIGHT CALF 01/31/1599 SHIVA DELGADO APRN Ot L97.221 NON-PRS CHRONIC ULCER OF LEFT CALF LIMIT 04/23/2011 Ot 788.20 RETENTION OF URINE NOS 03/02/2013 BURTON MODI APRN Ot 564.00 UNSPEC CONSTIPATION 04/19/2013 FATEMEH WONG MD Ot 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.4 ABDOM AORTIC ANEURYSM 04/19/2013 FATEMEH WONG MD Ot 599.0 URIN TRACT INFECTION NOS 04/19/2013 FATEMEH WONG MD Ot 788.20 RETENTION OF URINE NOS 04/19/2013 FATEMEH WONG MD Ot 789.00 ABDOMINAL PAIN, UNSPECIFIED SITE 11/25/2013 SILVA HENDERSON DO Ot 599.0 URIN TRACT INFECTION NOS 11/25/2013 SILVA HENDERSON DO Ot 789.09 ABDOMINAL PAIN, OTHER SPECIFIED SITE 11/25/2013 SILVA HENDERSON DO Ot 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 01/25/2014 SHAWN JUDGE Ot V53.6 FITTING URINARY DEVICES 03/31/2014 MATTHEW RODRIGUEZ, FERNANDO Arenas Ot 288.60 LEUKOCYTOSIS, UNSPECIFIED 03/31/2014 MATTHEW RODRIGUEZ, FERNANDO Arenas Ot 599.0 URIN TRACT INFECTION NOS 03/31/2014 MATTHEW RODRIGUEZ, FERNANDO Arneas Ot 789.00 ABDOMINAL PAIN, UNSPECIFIED SITE 03/31/2014 MATTHEW RODRIGUEZ, FERNANDO Arenas Ot V53.6 FITTING URINARY DEVICES 04/28/2014 Ot 433.10 04/28/2014 Ot 397.0 04/28/2014 Ot 414.00 04/28/2014 Ot 414.8 04/28/2014 Ot 424.0 04/28/2014 Ot 782.3 04/28/2014 Ot 786.09 04/28/2014 JEAN PAUL RODRIGUEZ FACC, ALI FACP CCDS Ot 414.00 04/28/2014 JEAN PAUL RODRIGUEZ FACC, ALI FACP CCDS Ot 414.8 04/28/2014 JEAN PAUL RODRIGUEZ FACC, ALI FACP CCDS Ot 426.0 04/28/2014 JEAN PAUL RODRIGUEZ FACC, ALI FACP CCDS Ot 496 04/29/2014 Ot 250.40 04/29/2014 Ot 250.60 04/29/2014 Ot 272.0 04/29/2014 Ot 285.9 04/29/2014 Ot 294.20 04/29/2014 Ot 357.2 04/29/2014 Ot 397.0 04/29/2014 Ot 401.9 04/29/2014 Ot 412 04/29/2014 Ot 414.01 04/29/2014 Ot 414.8 04/29/2014 Ot 424.0 04/29/2014 Ot 428.0 04/29/2014 Ot 433.10 04/29/2014 Ot 440.23 04/29/2014 Ot 453.41 04/29/2014 Ot 496 04/29/2014 Ot 564.1 04/29/2014 Ot 583.81 04/29/2014 Ot 596.54 04/29/2014 Ot 682.6 04/29/2014 Ot 715.90 04/29/2014 Ot 891.1 04/29/2014 Ot V12.59 04/29/2014 Ot V12.79 04/29/2014 Ot V15.82 04/29/2014 Ot V44.50 04/29/2014 Ot V45.01 04/29/2014 Ot V45.89 04/29/2014 Ot V49.72 04/30/2014 Ot 250.40 04/30/2014 Ot 250.60 04/30/2014 Ot 272.0 04/30/2014 Ot 285.9 04/30/2014 Ot 294.20 04/30/2014 Ot 357.2 04/30/2014 Ot 397.0 04/30/2014 Ot 401.9 04/30/2014 Ot 412 04/30/2014 Ot 414.01 04/30/2014 Ot 414.8 04/30/2014 Ot 424.0 04/30/2014 Ot 428.0 04/30/2014 Ot 433.10 04/30/2014 Ot 440.23 04/30/2014 Ot 453.41 04/30/2014 Ot 496 04/30/2014 Ot 564.1 04/30/2014 Ot 583.81 04/30/2014 Ot 596.54 04/30/2014 Ot 682.6 04/30/2014 Ot 715.90 04/30/2014 Ot 891.1 04/30/2014 Ot V12.59 04/30/2014 Ot V12.79 04/30/2014 Ot V15.82 04/30/2014 Ot V44.50 04/30/2014 Ot V45.01 04/30/2014 Ot V45.89 04/30/2014 Ot V49.72 04/30/2014 Ot 250.40 04/30/2014 Ot 250.60 04/30/2014 Ot 272.0 04/30/2014 Ot 285.9 04/30/2014 Ot 294.20 04/30/2014 Ot 357.2 04/30/2014 Ot 397.0 04/30/2014 Ot 401.9 04/30/2014 Ot 412 04/30/2014 Ot 414.01 04/30/2014 Ot 414.8 04/30/2014 Ot 424.0 04/30/2014 Ot 428.0 04/30/2014 Ot 433.10 04/30/2014 Ot 440.23 04/30/2014 Ot 453.41 04/30/2014 Ot 496 04/30/2014 Ot 564.1 04/30/2014 Ot 583.81 04/30/2014 Ot 596.54 04/30/2014 Ot 682.6 04/30/2014 Ot 715.90 04/30/2014 Ot 891.1 04/30/2014 Ot V12.59 04/30/2014 Ot V12.79 04/30/2014 Ot V15.82 04/30/2014 Ot V44.50 04/30/2014 Ot V45.01 04/30/2014 Ot V45.89 04/30/2014 Ot V49.72 04/30/2014 Ot 250.40 DIAB W RENAL MANIFEST, TYPE II OR UNSPEC 04/30/2014 Ot 250.60 DIAB W NEURO MANIFEST, TYPE II OR UNSPEC 04/30/2014 Ot 272.0 PURE HYPERCHOLESTEROLEM 04/30/2014 Ot 285.9 ANEMIA NOS 04/30/2014 Ot 294.20 DEMENTIA, UNSPECIFIED, WITHOUT BEHAVIORA 04/30/2014 Ot 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 04/30/2014 Ot 397.0 04/30/2014 Ot 401.9 HYPERTENSION NOS 04/30/2014 Ot 412 OLD MYOCARDIAL INFARCT 04/30/2014 Ot 414.01 CORONARY ATHEROSCLEROSIS OF [place] CORON 04/30/2014 Ot 414.8 CHR ISCHEMIC HRT DIS NEC 04/30/2014 Ot 424.0 MITRAL VALVE DISORDER 04/30/2014 Ot 428.0 CONGESTIVE HEART FAILURE NOS 04/30/2014 Ot 433.10 CAROTID ARTERY OCCLUSION W O CEREBRAL IN 04/30/2014 Ot 440.23 ATHEROSCL [place] ARTER EXTREMITIES W ULC 04/30/2014 Ot 453.41 ACUTE VENOUS EMBOLISM THROMBOSIS DEEP 04/30/2014 Ot 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 04/30/2014 Ot 564.1 IRRITABLE BOWEL SYNDROME 04/30/2014 Ot 583.81 NEPHRITIS NOS IN OTH DIS 04/30/2014 Ot 596.54 NEUROGENIC BLADDER, NOT OTHERWISE SPECIF 04/30/2014 Ot 682.6 CELLULITIS OF LEG 04/30/2014 Ot 715.90 OSTEOARTHROS NOS-UNSPEC 04/30/2014 Ot 891.1 OPEN WND KNEE /LEG-COMPL 04/30/2014 Ot V12.59 HX- CIRCULATORY SYST DIS,NEC 04/30/2014 Ot V12.79 PERSONAL HISTORY OTH SPEC DIGESTIVE SYST 04/30/2014 Ot V15.82 HISTORY OF TOBACCO USE 04/30/2014 Ot V44.50 CYSTOSTOMY STATUS, NOS 04/30/2014 Ot V45.01 CARDIAC PACEMAKER IN SITU 04/30/2014 Ot V45.89 POSTSURGICAL STATES NEC 04/30/2014 Ot V49.72 OTHER TOE(S ) AMPUTATION STATUS 04/30/2014 Ot V64.3 NO PROC FOR REASONS NEC 05/03/2014 Ot 250.40 DIAB W RENAL MANIFEST, TYPE II OR UNSPEC 05/03/2014 Ot 250.60 DIAB W NEURO MANIFEST, TYPE II OR UNSPEC 05/03/2014 Ot 272.0 PURE HYPERCHOLESTEROLEM 05/03/2014 Ot 285.9 ANEMIA NOS 05/03/2014 Ot 294.20 DEMENTIA, UNSPECIFIED, WITHOUT BEHAVIORA 05/03/2014 Ot 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 05/03/2014 Ot 401.9 HYPERTENSION NOS 05/03/2014 Ot 412 OLD MYOCARDIAL INFARCT 05/03/2014 Ot 414.01 CORONARY ATHEROSCLEROSIS OF [place] CORON 05/03/2014 Ot 414.8 CHR ISCHEMIC HRT DIS NEC 05/03/2014 Ot 424.0 MITRAL VALVE DISORDER 05/03/2014 Ot 428.0 CONGESTIVE HEART FAILURE NOS 05/03/2014 Ot 433.10 CAROTID ARTERY OCCLUSION W O CEREBRAL IN 05/03/2014 Ot 440.23 ATHEROSCL [place] ARTER EXTREMITIES W ULC 05/03/2014 Ot 453.41 ACUTE VENOUS EMBOLISM THROMBOSIS DEEP 05/03/2014 Ot 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 05/03/2014 Ot 564.1 IRRITABLE BOWEL SYNDROME 05/03/2014 Ot 583.81 NEPHRITIS NOS IN OTH DIS 05/03/2014 Ot 596.54 NEUROGENIC BLADDER, NOT OTHERWISE SPECIF 05/03/2014 Ot 682.6 CELLULITIS OF LEG 05/03/2014 Ot 715.90 OSTEOARTHROS NOS-UNSPEC 05/03/2014 Ot V15.82 HISTORY OF TOBACCO USE 05/03/2014 Ot V45.01 CARDIAC PACEMAKER IN SITU 05/05/2014 Ot 250.00 DIAB ALBERTO WO COMPL, TYPE II OR UNSPEC TY 05/05/2014 Ot 272.4 HYPERLIPIDEMIA NEC/NOS 05/05/2014 Ot 294.20 DEMENTIA, UNSPECIFIED, WITHOUT BEHAVIORA 05/05/2014 Ot 401.9 HYPERTENSION NOS 05/05/2014 Ot 414.00 CORON ATHEROSCLER NOS TYPE VESSEL, NATIV 05/05/2014 Ot 428.0 CONGESTIVE HEART FAILURE NOS 05/05/2014 Ot 440.20 ATHEROSCLEROSIS [place] ARTERIES EXTREMIT 05/05/2014 Ot 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 05/05/2014 Ot 441.4 ABDOM AORTIC ANEURYSM 05/05/2014 Ot 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 05/05/2014 Ot 682.6 CELLULITIS OF LEG 05/05/2014 Ot 784.7 EPISTAXIS 05/05/2014 Ot E849.6 ACCIDENT IN PUBLIC BLDG 05/05/2014 Ot E934.2 ADV EFF ANTICOAGULANTS 05/05/2014 Ot V15.82 HISTORY OF TOBACCO USE 05/05/2014 Ot V44.6 URINOSTOMY STATUS NEC 05/05/2014 Ot V45.02 AUTO IMPLANTABLE CARDIAC DEFIBRILLATOR I 05/05/2014 Ot V45.89 POSTSURGICAL STATES NEC 09/06/2014 SHAHBAZ RODRIGUEZ, RICARDA Tran Ot 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 09/10/2014 Ot 397.0 09/10/2014 Ot 414.00 09/10/2014 Ot 414.8 09/10/2014 Ot 424.0 09/10/2014 Ot 782.3 09/10/2014 Ot 786.09 09/10/2014 JEAN PAUL RODRIGUEZ FACC, ALI FACP CCDS Ot 414.00 09/10/2014 JEAN PAUL RODRIGUEZ FACC, ALI FACP CCDS Ot 414.8 09/10/2014 JEAN PAUL RODRIGUEZ FACC, ALI FACP CCDS Ot 426.0 09/10/2014 JEAN PAUL RODRIGUEZ FACC, ALI FACP CCDS Ot 496 02/09/2015 MCKEON DO, CALLIE Ot E11.9 02/09/2015 MCKEON DO, CALLIE Ot E78.0 02/09/2015 MCKEON DO, CALLIE Ot E78.1 02/09/2015 MCKEON DO, CALLIE Ot Z00.00 02/15/2015 MCKEON DO, CALLIE Ot E11.42 02/15/2015 MCKEON DO, CALLIE Ot E11.51 02/15/2015 MCKEON DO, CALLIE Ot E78.5 02/15/2015 MCKEON DO, CALLIE Ot F03.90 02/15/2015 MCKEON DO, CALLIE Ot F32.9 02/15/2015 MCKEON DO, CALLIE Ot I11.9 02/15/2015 MCKEON DO, CALLIE Ot I25.5 02/15/2015 MCKEON DO, CALLIE Ot I42.0 02/15/2015 MCKEON DO, CALLIE Ot K58.9 02/15/2015 MCKEON DO, CALLIE Ot K59.00 02/15/2015 MCKEON DO, CALLIE Ot K80.12 02/15/2015 MCKEON DO, CALLIE Ot K85.1 02/15/2015 MCKEON DO, CALLIE Ot N31.9 02/15/2015 MCKEON DO, CALLIE Ot N39.0 02/15/2015 MCKEON DO, CALLIE Ot R26.89 02/15/2015 MCKEON DO, CALLIE Ot Z87.891 02/15/2015 MCKEON DO, CALLIE Ot Z93.59 02/15/2015 MCKEON DO, CALLIE Ot Z95.0 02/15/2015 MCKEON DO, CALLIE Ot E11.42 02/15/2015 MCKEON DO, CALLIE Ot E11.51 02/15/2015 MCKEON DO, CALLIE Ot E78.5 02/15/2015 MCKEON DO, CALLIE Ot F03.90 02/15/2015 MCKEON DO, CALLIE Ot F32.9 02/15/2015 MCKEON DO, CALLIE Ot I11.9 02/15/2015 MCKEON DO, CALLIE Ot I25.5 02/15/2015 MCKEON DO, CALLIE Ot I42.0 02/15/2015 MCKEON DO, CALLIE Ot K58.9 02/15/2015 MCKEON DO, CALLIE Ot K59.00 02/15/2015 MCKEON DO, CALLIE Ot K80.12 02/15/2015 MCKEON DO, CALLIE Ot K85.1 02/15/2015 MCKEON DO, CALLIE Ot N31.9 02/15/2015 MCKEON DO, CALLIE Ot N39.0 02/15/2015 MCKEON DO, CALLIE Ot R26.89 02/15/2015 MCKEON DO, CALLIE Ot Z87.891 02/15/2015 MCKEON DO, CALLIE Ot Z93.59 02/15/2015 MCKEON DO, CALLIE Ot Z95.0 02/16/2015 MCKEON DO, CALLIE Ot E11.42 02/16/2015 MCKEON DO, CALLIE Ot E11.51 02/16/2015 MCKEON DO, CALLIE Ot E78.5 02/16/2015 MCKEON DO, CALLIE Ot F03.90 02/16/2015 MCKEON DO, CALLIE Ot F32.9 02/16/2015 MCKEON DO, CALLIE Ot I11.9 02/16/2015 MCKEON DO, CALLIE Ot I25.5 02/16/2015 MCKEON DO, CALLIE Ot I42.0 02/16/2015 MCKEON DO, CALLIE Ot K58.9 02/16/2015 MCKEON DO, CALLIE Ot K59.00 02/16/2015 MCKEON DO, CALLIE Ot K80.12 02/16/2015 MCKEON DO, CALLIE Ot K85.1 02/16/2015 MCKEON DO, CALLIE Ot N31.9 02/16/2015 MCKEON DO, CALLIE Ot N39.0 02/16/2015 MCKEON DO, CALLIE Ot R26.89 02/16/2015 MCKEON DO, CALLIE Ot Z87.891 02/16/2015 MCKEON DO, CALLIE Ot Z93.59 02/16/2015 MCKEON DO, CALLIE Ot Z95.0 02/18/2015 MCKEON DO, CALLIE Ot 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 P 02/18/2015 MCKEON DO, CALLIE Ot E11.51 TYPE 2 DIABETES W DIABETIC PERIPHERAL AN 02/18/2015 MCKEON DO, CALLIE Ot E78.5 HYPERLIPIDEMIA, UNSPECIFIED 02/18/2015 MCKEON DO, CALLIE Ot F03.90 UNSPECIFIED DEMENTIA WITHOUT BEHAVIORAL 02/18/2015 MCKEON DO, CALLIE Ot F32.9 MAJOR DEPRESSIVE DISORDER, SINGLE EPISOD 02/18/2015 MCKEON DO, CALLIE Ot I11.9 HYPERTENSIVE HEART DISEASE WITHOUT HEART 02/18/2015 MCKEON DO, CALLIE Ot 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 02/18/2015 MCKEON DO, CALLIE Ot I42.0 DILATED CARDIOMYOPATHY 02/18/2015 MCKEON DO, CALLIE Ot K58.9 IRRITABLE BOWEL SYNDROME WITHOUT DIARRHE 02/18/2015 MCKEON DO, CALLIE Ot K59.00 CONSTIPATION, UNSPECIFIED 02/18/2015 MCKEON DO, CALLIE Ot K80.12 CALCULUS OF GB W ACUTE AND CHRONIC BECKI 02/18/2015 JOSESITO MCKEON DOI Ot K85.1 BILIARY ACUTE PANCREATITIS 02/18/2015 JOSESITO MCKEON DOI Ot N31.9 NEUROMUSCULAR DYSFUNCTION OF BLADDER, UN 02/18/2015 CALLIE MCKEON DO Ot N39.0 URINARY TRACT INFECTION, SITE NOT SPECIF 02/18/2015 CALLIE MCKEON DO Ot R26.89 OTHER ABNORMALITIES OF GAIT AND MOBILITY 02/18/2015 CALLIE MCKEON DO Ot Z45.010 ENCNTR FOR CHECKING AND TEST OF CARD PAC 02/18/2015 CALLIE MCKEON DO Ot Z87.891 PERSONAL HISTORY OF NICOTINE DEPENDENCE 02/18/2015 JOSESITO MCKEON DOI Ot Z93.59 OTHER CYSTOSTOMY STATUS 02/18/2015 CALLIE MCKEON DO Ot Z95.0 PRESENCE OF CARDIAC PACEMAKER 03/11/2015 VICENTA RODRIGUEZ, ABE E Ot A04.7 ENTEROCOLITIS DUE TO CLOSTRIDIUM DIFFICI 03/11/2015 VICENTA RODRIGUEZ ABE E Ot D64.9 ANEMIA, UNSPECIFIED 03/11/2015 VICENTA RODRIGUEZ, ABE E Ot E11.9 TYPE 2 DIABETES MELLITUS WITHOUT COMPLIC 03/11/2015 VICENTA RODRIGUEZ, ABE E Ot E78.0 PURE HYPERCHOLESTEROLEMIA 03/11/2015 VICENTA RODRIGUEZ, ABE E Ot E78.5 HYPERLIPIDEMIA, UNSPECIFIED 03/11/2015 VICENTA RODRIGUEZ, ABE E Ot F03.90 UNSPECIFIED DEMENTIA WITHOUT BEHAVIORAL 03/11/2015 VICENTA RODRIGUEZ, ABE E Ot F32.9 MAJOR DEPRESSIVE DISORDER, SINGLE EPISOD 03/11/2015 VICENTA RODRIGUEZ, ABE E Ot H91.10 PRESBYCUSIS, UNSPECIFIED EAR 03/11/2015 VICENTA RODRIGUEZ, ABE E Ot I10 ESSENTIAL (PRIMARY) HYPERTENSION 03/11/2015 VICENTA RODRIGUEZ, ABE E Ot I25.10 ATHSCL HEART DISEASE OF [place] CORONARY 03/11/2015 VICENTA RODRIGUEZ ABE E Ot 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 03/11/2015 VICENTA RODRIGUEZ, ABE E Ot I73.9 PERIPHERAL VASCULAR DISEASE, UNSPECIFIED 03/11/2015 VICENTA RODRIGUEZ, ABE E Ot K59.00 CONSTIPATION, UNSPECIFIED 03/11/2015 VICENTA RODRIGUEZ ABE E Ot N31.9 NEUROMUSCULAR DYSFUNCTION OF BLADDER, UN 03/11/2015 VICENTA RODRIGUEZ ABE E Ot Z48.815 ENCNTR FOR SURGICAL AFTCR FOLLOWING SURG 03/11/2015 ABE YADAV MD Ot Z87.891 PERSONAL HISTORY OF NICOTINE DEPENDENCE 03/11/2015 ABE YADAV MD Ot Z89.421 ACQUIRED ABSENCE OF OTHER RIGHT TOE(S) 03/11/2015 ABE YADAV MD Ot Z95.0 PRESENCE OF CARDIAC PACEMAKER 05/09/2015 SARY BERNAL DO, Ot N30.91 CYSTITIS, UNSPECIFIED WITH HEMATURIA 05/09/2015 SARY BERNAL DO, Ot N40.1 ENLARGED PROSTATE WITH LOWER URINARY TRA 05/09/2015 SARY BERNAL DO Ot R33.8 OTHER RETENTION OF URINE 05/09/2015 SARY BERNAL DO Ot Z79.02 [employer]IC (CURRENT) USE OF ANTITHROMBOTI 05/09/2015 SARY BERNAL DO Ot 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 05/09/2015 SARY BERNAL DO, Ot 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 05/24/2015 CALLIE MCKEON DO Ot E11.9 05/24/2015 LINDA CANAS CALLIE Ot E78.0 05/24/2015 LINDA CANAS CALLIE Ot E78.1 05/24/2015 LINDA CANAS CALLIE Ot Z00.00 06/01/2015 Ot 397.0 06/01/2015 Ot 414.00 06/01/2015 Ot 414.8 06/01/2015 Ot 424.0 06/01/2015 Ot 782.3 06/01/2015 Ot 786.09 06/01/2015 JEAN PAUL RODRIGUEZ FAC, ALI FACP CCDS Ot 414.00 06/01/2015 JEAN PAUL RODRIGUEZ FACC, ALI FACP CCDS Ot 414.8 06/01/2015 JEAN PAUL RODRIGUEZ FACC, ALI FACP CCDS Ot 426.0 06/01/2015 JEAN PAUL RODRIGUEZ FAC, ALI FACP CCDS Ot 496 06/01/2015 LINDA CANAS CALLIE Ot E11.9 06/01/2015 LINDA CANAS CALLIE Ot E78.0 06/01/2015 LINDA CANAS CALLIE Ot E78.1 06/01/2015 LINDA CANAS CALLIE Ot Z00.00 06/01/2015 LINDA CANAS CALLIE Ot E11.9 06/01/2015 LINDA CANAS CALLIE Ot E78.0 06/01/2015 MCKEON DO, CALLIE Ot E78.1 06/01/2015 MCKEON DO, CALLIE Ot Z00.00 06/23/2015 RUDOLPH BUSH MD Ot R31.9 HEMATURIA, UNSPECIFIED 06/24/2015 BAIMA, AL L CORN DETASSELER Ot E78.5 HYPERLIPIDEMIA, UNSPECIFIED 06/24/2015 BAIMA, AL L CORN DETASSELER Ot I25.10 ATHSCL HEART DISEASE OF [place] CORONARY 06/24/2015 BAIMA, AL L CORN DETASSELER Ot 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 06/24/2015 BAIMA, AL L CORN DETASSELER Ot I77.9 DISORDER OF ARTERIES AND ARTERIOLES, UNS 06/24/2015 BAIMA, AL L CORN DETASSELER Ot Z95.0 PRESENCE OF CARDIAC PACEMAKER 06/24/2015 BAIMA, AL L CORN DETASSELER Ot E78.5 HYPERLIPIDEMIA, UNSPECIFIED 06/24/2015 BAIMA, AL L CORN DETASSELER Ot I25.10 ATHSCL HEART DISEASE OF [place] CORONARY 06/24/2015 BAIMA, AL L CORN DETASSELER Ot 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 06/24/2015 BAIMA, AL L CORN DETASSELER Ot I77.9 DISORDER OF ARTERIES AND ARTERIOLES, UNS 06/24/2015 BAIMA, AL L CORN DETASSELER Ot Z95.0 PRESENCE OF CARDIAC PACEMAKER 07/12/2015 RUDOLPH BUSH MD Ot R31.9 HEMATURIA, UNSPECIFIED 07/13/2015 BAIMA, AL L CORN DETASSELER Ot E78.5 HYPERLIPIDEMIA, UNSPECIFIED 07/13/2015 BAIMA, AL L CORN DETASSELER Ot I25.10 ATHSCL HEART DISEASE OF [place] CORONARY 07/13/2015 BAIMA, AL L CORN DETASSELER Ot 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 07/13/2015 BAIMA, AL L CORN DETASSELER Ot I77.9 DISORDER OF ARTERIES AND ARTERIOLES, UNS 07/13/2015 BAIMA, AL L CORN DETASSELER Ot Z95.0 PRESENCE OF CARDIAC PACEMAKER 08/03/2015 BAIMA, AL L CORN DETASSELER Ot E78.5 HYPERLIPIDEMIA, UNSPECIFIED 08/03/2015 BAIMA, AL L CORN DETASSELER Ot I25.10 ATHSCL HEART DISEASE OF [place] CORONARY 08/03/2015 BAIMA, AL L CORN DETASSELER Ot 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 08/03/2015 BAIMA, AL L CORN DETASSELER Ot I77.9 DISORDER OF ARTERIES AND ARTERIOLES, UNS 08/03/2015 AL TURNER CORN DETASSELER Ot Z95.0 PRESENCE OF CARDIAC PACEMAKER 08/09/2015 MATTHEW RODRIGUEZ, FERNANDO Arenas Ot N39.0 URINARY TRACT INFECTION, SITE NOT SPECIF 08/09/2015 FERNANDO CASTRO MD Ot R31.0 GROSS HEMATURIA 08/09/2015 FERNANDO CASTRO MD Ot Z95.0 PRESENCE OF CARDIAC PACEMAKER 08/09/2015 Ot 397.0 TRICUSPID VALVE DISEASE 08/09/2015 Ot 414.00 CORON ATHEROSCLER NOS TYPE VESSEL, NATIV 08/09/2015 Ot 414.8 CHR ISCHEMIC HRT DIS NEC 08/09/2015 Ot 424.0 MITRAL VALVE DISORDER 08/09/2015 Ot 782.3 EDEMA 08/09/2015 Ot 786.09 RESPIRATORY ABNORM NEC 08/09/2015 JEAN PAUL RODRIGUEZ FACC, ALI FACP CCDS Ot 414.00 CORON ATHEROSCLER NOS TYPE VESSEL, NATIV 08/09/2015 JEAN PAUL RODRIGUEZ FACC, ALI FACP CCDS Ot 414.8 CHR ISCHEMIC HRT DIS NEC 08/09/2015 JEAN PAUL RODRIGUEZ FACC, ALI FACP CCDS Ot 426.0 ATRIOVENT BLOCK COMPLETE 08/09/2015 JEAN PAUL RODRIGUEZ FACC, ALI FACP CCDS Ot 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 08/09/2015 MCKEON DO, CALLIE Ot E11.9 TYPE 2 DIABETES MELLITUS WITHOUT COMPLIC 08/09/2015 MCKEON DO, CALLIE Ot E78.0 PURE HYPERCHOLESTEROLEMIA 08/09/2015 MCKEON DO, CALLIE Ot 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 08/09/2015 MCKEON DO, CALLIE Ot Z00.00 ENCNTR FOR GENERAL ADULT MEDICAL EXAM W08/09/2015 MCKEON DO, CALLIE Ot E11.9 TYPE 2 DIABETES MELLITUS WITHOUT COMPLIC 08/09/2015 MCKEON DO, CALLIE Ot E78.0 PURE HYPERCHOLESTEROLEMIA 08/09/2015 MCKEON DO, CALLIE Ot 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 08/09/2015 MCKEON DO, CALLIE Ot Z00.00 ENCNTR FOR GENERAL ADULT MEDICAL EXAM W/ 08/09/2015 RACHELLE RODRIGUEZ, RUDOLPH Tran Ot R31.9 HEMATURIA, UNSPECIFIED 08/09/2015 AL TURNER CORN DETASSELER Ot E78.5 HYPERLIPIDEMIA, UNSPECIFIED 08/09/2015 AL TURNER CORN DETASSELER Ot I25.10 ATHSCL HEART DISEASE OF [place] CORONARY 08/09/2015 AL TURNER CORN DETASSELER Ot 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 08/09/2015 AL TURNER CORN DETASSELER Ot I77.9 DISORDER OF ARTERIES AND ARTERIOLES, UNS 08/09/2015 LENNY TURNERHER [place] CORN DETASSELER Ot Z95.0 PRESENCE OF CARDIAC PACEMAKER 08/10/2015 MATTHEW RODRIGUEZ, FERNANDO T Ot N39.0 URINARY TRACT INFECTION, SITE NOT SPECIF 08/10/2015 MATTHEW RODRIGUEZ, FERNANDO Arenas Ot R31.0 GROSS HEMATURIA 08/10/2015 MATTHEW RODRIGUEZ, FERNANDO T Ot Z95.0 PRESENCE OF CARDIAC PACEMAKER 10/13/2015 LINDA CANAS CALLIE Ot E11.9 TYPE 2 DIABETES MELLITUS WITHOUT COMPLIC 10/13/2015 LINDA DO CALLIE Ot E78.0 PURE HYPERCHOLESTEROLEMIA 10/13/2015 LINDA CANAS CALLIE Ot Z00.00 ENCNTR FOR GENERAL ADULT MEDICAL EXAM W/ 11/28/2015 BURTON MODI APRN Ot E11.9 TYPE 2 DIABETES MELLITUS WITHOUT COMPLIC 11/28/2015 BURTON MODI APRN Ot F03.90 UNSPECIFIED DEMENTIA WITHOUT BEHAVIORAL 11/28/2015 BUROTN MODI APRN Ot I10 ESSENTIAL (PRIMARY) HYPERTENSION 11/28/2015 BURTON MODI APRN Ot L03.115 CELLULITIS OF RIGHT LOWER LIMB 11/28/2015 BURTON MODI APRN Ot S80.821A BLISTER (NONTHERMAL), RIGHT LOWER LEG, I 11/28/2015 BURTON MODI APRN Ot Z79.82 [facility] (CURRENT) USE OF ASPIRIN 11/28/2015 BURTON MODI APRN Ot 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 11/28/2015 BURTON MODI APRN Ot Z95.0 PRESENCE OF CARDIAC PACEMAKER 11/28/2015 BURTON MODI APRN Ot Z95.5 PRESENCE OF CORONARY ANGIOPLASTY IMPLANT 11/30/2015 BURTON MODI APRN Ot E11.9 TYPE 2 DIABETES MELLITUS WITHOUT COMPLIC 11/30/2015 BURTON MODI APRN Ot F03.90 UNSPECIFIED DEMENTIA WITHOUT BEHAVIORAL 11/30/2015 MODI, PETER J GEODETIC SURVEY DIRECTOR Ot I10 ESSENTIAL (PRIMARY) HYPERTENSION 11/30/2015 BURTON MODI GEODETIC SURVEY DIRECTOR Ot L03.115 CELLULITIS OF RIGHT LOWER LIMB 11/30/2015 BURTON MODI GEODETIC SURVEY DIRECTOR Ot S80.821A BLISTER (NONTHERMAL), RIGHT LOWER LEG, I 11/30/2015 BURTON MODI GEODETIC SURVEY DIRECTOR Ot 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 11/30/2015 BURTON MODI APRN Ot 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 11/30/2015 BURTON MODI GEODETIC SURVEY DIRECTOR Ot Z95.0 PRESENCE OF CARDIAC PACEMAKER 11/30/2015 BURTON MODI APRN Ot Z95.5 PRESENCE OF CORONARY ANGIOPLASTY IMPLANT 12/13/2015 LILIANA ALCOCER MD Ot L97.211 NON-PRS CHRONIC ULCER OF RIGHT CALF LIMI 12/14/2015 LILIANA ALCOCER MD Ot F17.210 NICOTINE DEPENDENCE, CIGARETTES, UNCOMPL 12/14/2015 LILIANA ALCOCER MD Ot I72.4 ANEURYSM OF ARTERY OF LOWER EXTREMITY 12/14/2015 LILIANA ALCOCER MD Ot I77.1 STRICTURE OF ARTERY 12/14/2015 LILIANA ALCOCER MD Ot I87.311 CHRONIC VENOUS HYPERTENSION W ULCER OF R 12/14/2015 LILIANA ALCOCER MD Ot L97.211 NON-PRS CHRONIC ULCER OF RIGHT CALF LIMI 12/14/2015 LILIANA ALCOCER MD Ot F17.210 NICOTINE DEPENDENCE, CIGARETTES, UNCOMPL 12/14/2015 LILIANA ALCOCER MD Ot I72.4 ANEURYSM OF ARTERY OF LOWER EXTREMITY 12/14/2015 LILIANA ALCOCER MD Ot I77.1 STRICTURE OF ARTERY 12/14/2015 LILIANA ALCOCER MD Ot I87.311 CHRONIC VENOUS HYPERTENSION W ULCER OF R 12/14/2015 LILIANA ALCOCER MD Ot L97.211 NON-PRS CHRONIC ULCER OF RIGHT CALF LIMI 12/23/2015 LILIANA ALCOCER MD Ot I70.232 ATHSCL [place] ARTERIES OF RIGHT LEG W UL 12/23/2015 LILIANA ALCOCER MD Ot I72.4 ANEURYSM OF ARTERY OF LOWER EXTREMITY 12/23/2015 LILIANA ALCOCER MD Ot I87.311 CHRONIC VENOUS HYPERTENSION W ULCER OF R 12/23/2015 LILIANA ALCOCER MD Ot L97.211 NON-PRS CHRONIC ULCER OF RIGHT CALF LIMI 12/23/2015 LILIANA ALCOCER MD, Ot T65.222A TOXIC EFFECT OF TOBACCO CIGARETTES, SELF 01/03/2016 LILIANA ALCOCER MD, Ot F17.210 NICOTINE DEPENDENCE, CIGARETTES, UNCOMPL 01/03/2016 LILIANA ALCOCER MD, Ot I72.4 ANEURYSM OF ARTERY OF LOWER EXTREMITY 01/03/2016 LILIANA ALCOCER MD, Ot I77.1 STRICTURE OF ARTERY 01/03/2016 LILIANA ALCOCER MD Ot I87.311 CHRONIC VENOUS HYPERTENSION W ULCER OF R 01/03/2016 LILIANA ALCOCER MD, Ot L97.211 NON-PRS CHRONIC ULCER OF RIGHT CALF LIMI 01/17/2016 LILIANA ALCOCER MD, Ot F17.210 NICOTINE DEPENDENCE, CIGARETTES, UNCOMPL 01/17/2016 LILIANA ALCOCER MD, Ot I72.4 ANEURYSM OF ARTERY OF LOWER EXTREMITY 01/17/2016 LILIANA ALCOCER MD, Ot I77.1 STRICTURE OF ARTERY 01/17/2016 LILIANA ALCOCER MD, Ot I87.311 CHRONIC VENOUS HYPERTENSION W ULCER OF R 01/17/2016 LILIANA ALCOCER MD, Ot L97.211 NON-PRS CHRONIC ULCER OF RIGHT CALF LIMI 05/15/2016 BURTON MODI APRN Ot E11.9 TYPE 2 DIABETES MELLITUS WITHOUT COMPLIC 05/15/2016 BURTON MODI APRN Ot I10 ESSENTIAL (PRIMARY) HYPERTENSION 05/15/2016 BURTON MODI APRN Ot L03.116 CELLULITIS OF LEFT LOWER LIMB 05/15/2016 BURTON MODI APRN Ot R22.42 LOCALIZED SWELLING, MASS AND LUMP, LEFT 05/15/2016 BURTON MODI APRN Ot 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 05/15/2016 BURTON MODI APRN Ot 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 05/15/2016 BURTON MODI APRN Ot Z79.899 OTHER [facility] (CURRENT) DRUG THERAPY 05/15/2016 BURTON MODI APRN Ot Z95.0 PRESENCE OF CARDIAC PACEMAKER 05/23/2016 BURTON MODI APRN Ot E11.9 TYPE 2 DIABETES MELLITUS WITHOUT COMPLIC 05/23/2016 BURTON MODI APRN Ot I10 ESSENTIAL (PRIMARY) HYPERTENSION 05/23/2016 MODI, PETER J GEODETIC SURVEY DIRECTOR Ot L03.116 CELLULITIS OF LEFT LOWER LIMB 05/23/2016 BURTON MODI GEODETIC SURVEY DIRECTOR Ot R22.42 LOCALIZED SWELLING, MASS AND LUMP, LEFT 05/23/2016 BURTON MODI GEODETIC SURVEY DIRECTOR Ot Z79.82 [facility] (CURRENT) USE OF ASPIRIN 05/23/2016 BURTON MODI GEODETIC SURVEY DIRECTOR Ot Z79.84 [facility] (CURRENT) USE OF ORAL HYPOGLYC 05/23/2016 BURTON MODI GEODETIC SURVEY DIRECTOR Ot 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 05/23/2016 BURTON MODI GEODETIC SURVEY DIRECTOR Ot Z95.0 PRESENCE OF CARDIAC PACEMAKER 05/31/2016 CALLIE MCKEON DO Ot E11.65 TYPE 2 DIABETES MELLITUS WITH HYPERGLYCE 05/31/2016 JOSESITO MCKEON DOI Ot E78.00 PURE HYPERCHOLESTEROLEMIA, UNSPECIFIED 05/31/2016 LINDA CANAS CALLIE Ot 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 05/31/2016 CALLIE MCKEON DO Ot N39.0 URINARY TRACT INFECTION, SITE NOT SPECIF 06/19/2016 JEAN PAUL RODRIGUEZ FACC, ALI FACP CCDS Ot 414.00 CORON ATHEROSCLER NOS TYPE VESSEL, NATIV 06/19/2016 JEAN PAUL RODRIGUEZ FACC, ALI FACP CCDS Ot 414.8 CHR ISCHEMIC HRT DIS NEC 06/19/2016 JEAN PAUL RODRIGUEZ FACC, ALI FACP CCDS Ot 426.0 ATRIOVENT BLOCK COMPLETE 06/19/2016 JEAN PAUL RODRIGUEZ FACC, ALI FACP CCDS Ot 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 06/19/2016 CALLIE MCKEON DO Ot E11.9 TYPE 2 DIABETES MELLITUS WITHOUT COMPLIC 06/19/2016 LINDA CANAS CALLIE Ot E78.0 PURE HYPERCHOLESTEROLEMIA 06/19/2016 LINDA CANAS CALLIE Ot 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 06/19/2016 LINDA CANAS CALLIE Ot Z00.00 ENCNTR FOR GENERAL ADULT MEDICAL EXAM W06/19/2016 CALLIE MCKEON DO Ot E11.9 TYPE 2 DIABETES MELLITUS WITHOUT COMPLIC 06/19/2016 LINDA CANAS CALLIE Ot E78.0 PURE HYPERCHOLESTEROLEMIA 06/19/2016 LINDA CANAS CALLIE Ot 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 06/19/2016 JOSESITO MCKEON DOI Ot Z00.00 ENCNTR FOR GENERAL ADULT MEDICAL EXAM W/ 06/19/2016 RACHELLE RODRIGUEZ, RUDOLPH Tran Ot R31.9 HEMATURIA, UNSPECIFIED 06/19/2016 AL TURNER CORN DETASSELER Ot E78.5 HYPERLIPIDEMIA, UNSPECIFIED 06/19/2016 AL TURNER CORN DETASSELER Ot I25.10 ATHSCL HEART DISEASE OF [place] CORONARY 06/19/2016 AL TURNER CORN DETASSELER Ot 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 06/19/2016 AL TURNER CORN DETASSELER Ot I77.9 DISORDER OF ARTERIES AND ARTERIOLES, UNS 06/19/2016 AL TURNER CORN DETASSELER Ot Z95.0 PRESENCE OF CARDIAC PACEMAKER 06/19/2016 JOSESITO MCKEON DOI Ot E11.9 TYPE 2 DIABETES MELLITUS WITHOUT COMPLIC 06/19/2016 JOSESITO MCKEON DOI Ot E78.0 PURE HYPERCHOLESTEROLEMIA 06/19/2016 LINDA CANAS CALLIE Ot Z00.00 ENCNTR FOR GENERAL ADULT MEDICAL EXAM W06/19/2016 CARLYN RODRIGUEZ, LILIANA Arredondo Ot F17.210 NICOTINE DEPENDENCE, CIGARETTES, UNCOMPL 06/19/2016 LILIANA ALCOCER MD Ot I72.4 ANEURYSM OF ARTERY OF LOWER EXTREMITY 06/19/2016 LILIANA ALCOCER MD Ot I77.1 STRICTURE OF ARTERY 06/19/2016 LILIANA ALCOCER MD Ot I87.311 CHRONIC VENOUS HYPERTENSION W ULCER OF R 06/19/2016 LILIANA ALCOCER MD Ot L97.211 NON-PRS CHRONIC ULCER OF RIGHT [place]F LIMI 06/19/2016 LINDA CANAS CALLIE Ot E11.65 TYPE 2 DIABETES MELLITUS WITH HYPERGLYCE 06/19/2016 LINDA CANAS CALLIE Ot E78.00 PURE HYPERCHOLESTEROLEMIA, UNSPECIFIED 06/19/2016 LINDA CANAS CALLIE Ot 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 06/19/2016 LINDA CANAS CALLIE Ot N39.0 URINARY TRACT INFECTION, SITE NOT SPECIF 06/19/2016 FERNANDO CASTRO MD Ot E11.9 TYPE 2 DIABETES MELLITUS WITHOUT COMPLIC 06/19/2016 FERNANDO CASTRO MD Ot F03.90 UNSPECIFIED DEMENTIA WITHOUT BEHAVIORAL 06/19/2016 FERNANDO CASTRO MD Ot I10 ESSENTIAL (PRIMARY) HYPERTENSION 06/19/2016 FERNANDO CASTRO MD Ot N32.3 DIVERTICULUM OF BLADDER 06/19/2016 FERNANDO CASTRO MD Ot T83.018A BREAKDOWN (MECHANICAL) OF OTHER URINARY 06/19/2016 FERNANDO CASTRO MD T Ot 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 06/19/2016 FERNANDO CASTRO MD T Ot 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 06/19/2016 FERNANDO CASTRO MD T Ot 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 06/19/2016 FERNANDO CASTRO MD T Ot Z95.0 PRESENCE OF CARDIAC PACEMAKER 06/21/2016 FERNANDO CASTRO MD Ot E11.9 TYPE 2 DIABETES MELLITUS WITHOUT COMPLIC 06/21/2016 FERNANDO CASTRO MD Ot F03.90 UNSPECIFIED DEMENTIA WITHOUT BEHAVIORAL 06/21/2016 FERNANDO CASTRO MD Ot I10 ESSENTIAL (PRIMARY) HYPERTENSION 06/21/2016 FERNANDO CASTRO MD Ot N32.3 DIVERTICULUM OF BLADDER 06/21/2016 FERNANDO CASTRO MD Ot T83.018A BREAKDOWN (MECHANICAL) OF OTHER URINARY 06/21/2016 FERNANDO CASTRO MD T Ot Z79.82 [facility] (CURRENT) USE OF ASPIRIN 06/21/2016 FERNANDO CASTRO MD T Ot Z79.84 [facility] (CURRENT) USE OF ORAL HYPOGLYC 06/21/2016 FERNANDO CASTRO MD Ot Z79.899 OTHER [facility] (CURRENT) DRUG THERAPY 06/21/2016 FERNANDO CASTRO MD T Ot Z95.0 PRESENCE OF CARDIAC PACEMAKER 06/25/2016 FERNANDO CASTRO MD Ot E11.9 TYPE 2 DIABETES MELLITUS WITHOUT COMPLIC 06/25/2016 FERNANDO CASTRO MD Ot F03.90 UNSPECIFIED DEMENTIA WITHOUT BEHAVIORAL 06/25/2016 FERNANDO CASTRO MD Ot I10 ESSENTIAL (PRIMARY) HYPERTENSION 06/25/2016 FERNANDO CASTRO MD Ot N32.3 DIVERTICULUM OF BLADDER 06/25/2016 FERNANDO CASTRO MD T Ot T83.018A BREAKDOWN (MECHANICAL) OF OTHER URINARY 06/25/2016 FERNANDO CASTRO MD Ot 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 06/25/2016 FERNANDO CASTRO MD Ot Z79.84 [facility] (CURRENT) USE OF ORAL HYPOGLYC 06/25/2016 FERNANDO CASTRO MD Ot Z79.899 OTHER [facility] (CURRENT) DRUG THERAPY 06/25/2016 FERNANDO CASTRO MD Ot Z95.0 PRESENCE OF CARDIAC PACEMAKER 08/08/2016 SHIVA DELGADO GEODETIC SURVEY DIRECTOR Ot I87.333 CHRONIC VENOUS HTN W ULCER AND INFLAM OF 08/08/2016 SHIVA DELGADO GEODETIC SURVEY DIRECTOR Ot L97.212 NON-PRESSURE CHRONIC ULCER OF RIGHT CALF 08/08/2016 SHIVA DELGADO APRN Ot L97.221 NON-PRS CHRONIC ULCER OF LEFT CALF LIMIT 08/09/2016 FERNANDO CASTRO MD Ot E11.9 TYPE 2 DIABETES MELLITUS WITHOUT COMPLIC 08/09/2016 FERNANDO CASTRO MD Ot F03.90 UNSPECIFIED DEMENTIA WITHOUT BEHAVIORAL 08/09/2016 FERNANDO CASTRO MD Ot I10 ESSENTIAL (PRIMARY) HYPERTENSION 08/09/2016 FERNANDO CASTRO MD Ot N32.3 DIVERTICULUM OF BLADDER 08/09/2016 FERNANDO CASTRO MD Ot T83.018A BREAKDOWN (MECHANICAL) OF OTHER URINARY 08/09/2016 FERNANDO CASTRO MD Ot Z79.82 [facility] (CURRENT) USE OF ASPIRIN 08/09/2016 FERNANDO CASTRO MD Ot 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 08/09/2016 FERNANDO CASTRO MD Ot Z79.899 OTHER [facility] (CURRENT) DRUG THERAPY 08/09/2016 FERNANDO CASTRO MD Ot Z95.0 PRESENCE OF CARDIAC PACEMAKER 09/24/2016 SHIVA DELGADO GEODETIC SURVEY DIRECTOR Ot I87.333 CHRONIC VENOUS HTN W ULCER AND INFLAM OF 09/24/2016 SHIVA DELGADO GEODETIC SURVEY DIRECTOR Ot L97.212 NON-PRESSURE CHRONIC ULCER OF RIGHT CALF 09/24/2016 SHIVA DELGADO GEODETIC SURVEY DIRECTOR Ot L97.221 NON-PRS CHRONIC ULCER OF LEFT CALF LIMIT 10/03/2016 JEAN PAUL RODRIGUEZ FAC, ALI FACP CCDS Ot 414.00 CORON ATHEROSCLER NOS TYPE VESSEL, NATIV 10/03/2016 JEAN PAUL RODRIGUEZ FACC, ALI FACP CCDS Ot 414.8 CHR ISCHEMIC HRT DIS NEC 10/03/2016 JEAN PAUL RODRIGUEZ FACC, ALI FACP CCDS Ot 426.0 ATRIOVENT BLOCK COMPLETE 10/03/2016 JEAN PAUL RODRIGUEZ FACC, ALI FACP CCDS Ot 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 10/03/2016 LINDA CANAS CALLIE Ot E11.9 TYPE 2 DIABETES MELLITUS WITHOUT COMPLIC 10/03/2016 MCKEON DO CALLIE Ot E78.0 PURE HYPERCHOLESTEROLEMIA 10/03/2016 MCKEON DO CALLIE Ot 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 10/03/2016 MCKEON DO CALLIE Ot Z00.00 ENCNTR FOR GENERAL ADULT MEDICAL EXAM W10/03/2016 LINDA CANAS CALLIE Ot E11.9 TYPE 2 DIABETES MELLITUS WITHOUT COMPLIC 10/03/2016 MCKEON DO CALLIE Ot E78.0 PURE HYPERCHOLESTEROLEMIA 10/03/2016 MCKEON DO CALLIE Ot 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 10/03/2016 MCKEON DO CALLIE Ot Z00.00 ENCNTR FOR GENERAL ADULT MEDICAL EXAM W10/03/2016 RACHELLE RODRIGUEZ, RUDOLPH Tran Ot R31.9 HEMATURIA, UNSPECIFIED 10/03/2016 AL TURNER CORN DETASSELER Ot E78.5 HYPERLIPIDEMIA, UNSPECIFIED 10/03/2016 AL TURNER CORN DETASSELER Ot I25.10 ATHSCL HEART DISEASE OF [place] CORONARY 10/03/2016 AL TURNER CORN DETASSELER Ot 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 10/03/2016 AL TURNER CORN DETASSELER Ot I77.9 DISORDER OF ARTERIES AND ARTERIOLES, UNS 10/03/2016 AL TURNER CORN DETASSELER Ot Z95.0 PRESENCE OF CARDIAC PACEMAKER 10/03/2016 LINDA CANAS CALLIE Ot E11.9 TYPE 2 DIABETES MELLITUS WITHOUT COMPLIC 10/03/2016 MCKEON DO CALLIE Ot E78.0 PURE HYPERCHOLESTEROLEMIA 10/03/2016 MCKEON DO CALLIE Ot Z00.00 ENCNTR FOR GENERAL ADULT MEDICAL EXAM W10/03/2016 CARLYN RODRIGUEZ, LILIANA Arredondo Ot F17.210 NICOTINE DEPENDENCE, CIGARETTES, UNCOMPL 10/03/2016 CARLYN RODRIGUEZ, LILIANA Arredondo Ot I72.4 ANEURYSM OF ARTERY OF LOWER EXTREMITY 10/03/2016 CARLYN RODRIGUEZ, LILIANA Arredondo Ot I77.1 STRICTURE OF ARTERY 10/03/2016 CARLYN RODRIGUEZ, LILIANA Arredondo Ot I87.311 CHRONIC VENOUS HYPERTENSION W ULCER OF R 10/03/2016 LILIANA ALCOCER MD Ot L97.211 NON-PRS CHRONIC ULCER OF RIGHT [place] 10/03/2016 LINDA CANAS CALLIE Ot E11.65 TYPE 2 DIABETES MELLITUS WITH HYPERGLYCE 10/03/2016 LINDA CANAS CALLIE Ot E78.00 PURE HYPERCHOLESTEROLEMIA, UNSPECIFIED 10/03/2016 LINDA CANAS CALLIE Ot 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 10/03/2016 LINDA CANAS CALLIE Ot N39.0 URINARY TRACT INFECTION, SITE NOT SPECIF 10/03/2016 LINDA CANAS CALLIE Ot E11.65 TYPE 2 DIABETES MELLITUS WITH HYPERGLYCE 10/03/2016 LINDA CANAS CALLIE Ot 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 10/04/2016 LINDA CANAS CALLIE Ot E11.65 TYPE 2 DIABETES MELLITUS WITH HYPERGLYCE 10/04/2016 LINDA CANAS CALLIE Ot E78.00 PURE HYPERCHOLESTEROLEMIA, UNSPECIFIED 01/07/2017 LINDA CANAS CALLIE Ot E11.65 TYPE 2 DIABETES MELLITUS WITH HYPERGLYCE 01/07/2017 LINDA CANAS CALLIE Ot E78.00 PURE HYPERCHOLESTEROLEMIA, UNSPECIFIED 01/07/2017 LINDA CANAS CALLIE Ot 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 01/15/2017 JOSESITO MCKEON DOI Ot D64.9 ANEMIA, UNSPECIFIED 01/15/2017 LINDA CANAS CALLIE Ot E11.21 TYPE 2 DIABETES MELLITUS WITH DIABETIC N 01/15/2017 LINDA CANAS CALLIE Ot E78.5 HYPERLIPIDEMIA, UNSPECIFIED 01/15/2017 LINDA CANAS CALLIE Ot F03.90 UNSPECIFIED DEMENTIA WITHOUT BEHAVIORAL 01/15/2017 LINDA CANAS CALLIE Ot I13.0 HYP HRT CHR KDNY DIS W HRT FAIL AND ST 01/15/2017 LINDA CANAS CALLIE Ot 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 01/15/2017 LINDA CANAS CALLIE Ot 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 01/15/2017 CALLIE MCKEON DO Ot I50.23 ACUTE ON CHRONIC SYSTOLIC (CONGESTIVE) H 01/15/2017 MCKEONJOSESITO KENNEY DOI Ot 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 01/15/2017 JOSESITO MCKEON DOI Ot I73.9 PERIPHERAL VASCULAR DISEASE, UNSPECIFIED 01/15/2017 JOSESITO MCKEON DOI Ot J44.9 CHRONIC OBSTRUCTIVE PULMONARY DISEASE, U 01/15/2017 JOSESITO MCKEON DOI Ot L97.219 NON-PRESSURE CHRONIC ULCER OF RIGHT CALF 01/15/2017 JOSESITO MCKEON DOI Ot M19.90 UNSPECIFIED OSTEOARTHRITIS, UNSPECIFIED 01/15/2017 JOSESITO MCKEON DOI Ot N17.9 ACUTE KIDNEY FAILURE, UNSPECIFIED 01/15/2017 JOSESITO MCKEON DOI Ot N18.3 CHRONIC KIDNEY DISEASE, STAGE 3 (MODERAT 01/15/2017 JOSESITO MCKEON DOI Ot N39.0 URINARY TRACT INFECTION, SITE NOT SPECIF 01/15/2017 JOSESITO MCKEON DOI Ot Z87.891 PERSONAL HISTORY OF NICOTINE DEPENDENCE 01/15/2017 JOSESITO MCKEON DOI Ot Z95.0 PRESENCE OF CARDIAC PACEMAKER 01/16/2017 LILIANA ALCOCER MD, Ot E11.622 TYPE 2 DIABETES MELLITUS WITH OTHER SKIN 01/16/2017 LILIANA ALCOCER MD, Ot F03.90 UNSPECIFIED DEMENTIA WITHOUT BEHAVIORAL 01/16/2017 LILIANA ALCOCER MD, Ot I70.232 ATHSCL [place] ARTERIES OF RIGHT LEG W UL 01/16/2017 LILIANA ALCOCER MD, Ot I87.331 CHRONIC VENOUS HTN W ULCER AND INFLAMMAT 01/16/2017 LILIANA ALCOCER MD, Ot I89.0 LYMPHEDEMA, NOT ELSEWHERE CLASSIFIED 01/16/2017 LILIANA ALCOCER MD, Ot L97.211 NON-PRS CHRONIC ULCER OF RIGHT [place] 01/17/2017 LILIANA ALCOCER MD, Ot E11.622 TYPE 2 DIABETES MELLITUS WITH OTHER SKIN 01/17/2017 LILIANA ALCOCER MD, Ot F03.90 UNSPECIFIED DEMENTIA WITHOUT BEHAVIORAL 01/17/2017 LILIANA ALCOCER MD, Ot I70.232 ATHSCL [place] ARTERIES OF RIGHT LEG W UL 01/17/2017 LILIANA ALCOCER MD, Ot I87.331 CHRONIC VENOUS HTN W ULCER AND INFLAMMAT 01/17/2017 LILIANA ALCOCER MD, Ot I89.0 LYMPHEDEMA, NOT ELSEWHERE CLASSIFIED 01/17/2017 CARLYN MD, LILIANA G Ot L97.211 NON-PRS CHRONIC ULCER OF RIGHT [place] 01/28/2017 LILIANA ALCOCER MD Ot E11.622 TYPE 2 DIABETES MELLITUS WITH OTHER SKIN 01/28/2017 LILIANA ALCOCER MD Ot F03.90 UNSPECIFIED DEMENTIA WITHOUT BEHAVIORAL 01/28/2017 LILIANA ALCOCER MD Ot I70.232 ATHSCL [place] ARTERIES OF RIGHT LEG W UL 01/28/2017 LILIANA ALCOCER MD Ot I87.331 CHRONIC VENOUS HTN W ULCER AND INFLAMMAT 01/28/2017 LILIANA ALCOCER MD, Ot I89.0 LYMPHEDEMA, NOT ELSEWHERE CLASSIFIED 01/28/2017 LILIANA ALCOCER MD, Ot L97.211 NON-PRS CHRONIC ULCER OF RIGHT [place] 01/28/2017 MCKEONANNE MARIE CANAS CALLIE Ot E11.65 TYPE 2 DIABETES MELLITUS WITH HYPERGLYCE 01/28/2017 LINDA DO CALLIE Ot E78.00 PURE HYPERCHOLESTEROLEMIA, UNSPECIFIED 01/28/2017 LINDA CANAS CALLIE Ot 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 02/01/2017 LILIANA ALCOCER MD, Ot E11.622 TYPE 2 DIABETES MELLITUS WITH OTHER SKIN 02/01/2017 LILIANA ALCOCER MD, Ot F03.90 UNSPECIFIED DEMENTIA WITHOUT BEHAVIORAL 02/01/2017 LILIANA ALCOCER MD Ot I70.232 ATHSCL [place] ARTERIES OF RIGHT LEG W UL 02/01/2017 LILIANA ALCOCER MD Ot I87.331 CHRONIC VENOUS HTN W ULCER AND INFLAMMAT 02/01/2017 LILIANA ALCOCER MD, Ot I89.0 LYMPHEDEMA, NOT ELSEWHERE CLASSIFIED 02/01/2017 LILIANA ALCOCER MD, Ot L97.211 NON-PRS CHRONIC ULCER OF RIGHT [place] 02/05/2017 LILIANA ALCOCER MD, Ot E11.622 TYPE 2 DIABETES MELLITUS WITH OTHER SKIN 02/05/2017 LILIANA ALCOCER MD Ot F03.90 UNSPECIFIED DEMENTIA WITHOUT BEHAVIORAL 02/05/2017 LILIANA ALCOCER MD Ot I70.232 ATHSCL [place] ARTERIES OF RIGHT LEG W UL 02/05/2017 LILIANA ALCOCER MD Ot I87.331 CHRONIC VENOUS HTN W ULCER AND INFLAMMAT 02/05/2017 LILIANA ALCOCER MD, Ot I89.0 LYMPHEDEMA, NOT ELSEWHERE CLASSIFIED 02/05/2017 LILIANA ALCOCER MD, Ot L97.211 NON-PRS CHRONIC ULCER OF RIGHT [place] 02/18/2017 LILIANA ALCOCER MD, Ot E11.622 TYPE 2 DIABETES MELLITUS WITH OTHER SKIN 02/18/2017 LILIANA ALCOCER MD, Ot F03.90 UNSPECIFIED DEMENTIA WITHOUT BEHAVIORAL 02/18/2017 LILIANA ALCOCER MD Ot I70.232 ATHSCL [place] ARTERIES OF RIGHT LEG W UL 02/18/2017 LILIANA ALCOCER MD Ot I87.331 CHRONIC VENOUS HTN W ULCER AND INFLAMMAT 02/18/2017 LILIANA ALCOCER MD, Ot I89.0 LYMPHEDEMA, NOT ELSEWHERE CLASSIFIED 02/18/2017 LILINAA ALCOCER MD, Ot L97.211 NON-PRS CHRONIC ULCER OF RIGHT [place] 02/18/2017 LILIANA ALCOCER MD, Ot E11.622 TYPE 2 DIABETES MELLITUS WITH OTHER SKIN 02/18/2017 LILIANA ALCOCER MD, Ot F03.90 UNSPECIFIED DEMENTIA WITHOUT BEHAVIORAL 02/18/2017 LILIANA ALCOCER MD, Ot I70.232 ATHSCL [place] ARTERIES OF RIGHT LEG W UL 02/18/2017 LILIANA ALCOCER MD, Ot I87.331 CHRONIC VENOUS HTN W ULCER AND INFLAMMAT 02/18/2017 LILIANA ALCOCER MD, Ot I89.0 LYMPHEDEMA, NOT ELSEWHERE CLASSIFIED 02/18/2017 LILIANA ALCOCER MD, Ot L97.211 NON-PRS CHRONIC ULCER OF RIGHT [place] 02/19/2017 LILIANA ALCOCER MD, Ot E11.622 TYPE 2 DIABETES MELLITUS WITH OTHER SKIN 02/19/2017 LILIANA ALCOCER MD, Ot F03.90 UNSPECIFIED DEMENTIA WITHOUT BEHAVIORAL 02/19/2017 LILIANA ALCOCER MD, Ot I70.232 ATHSCL [place] ARTERIES OF RIGHT LEG W UL 02/19/2017 LILIANA ALCOCER MD, Ot I87.331 CHRONIC VENOUS HTN W ULCER AND INFLAMMAT 02/19/2017 LILIANA ALCOCER MD, Ot I89.0 LYMPHEDEMA, NOT ELSEWHERE CLASSIFIED 02/19/2017 LILIANA ALCOCER MD, Ot L97.211 NON-PRS CHRONIC ULCER OF RIGHT [place]F [place] Procedures Code Description Performed By Performed On 88.48 CONTRAST ARTERIOGRAM-LEG 04/29/2014 [id number] RESECTION OF GALLBLADDER, OPEN APPROACH 02/15/2015 [id number] INSPECTION OF ABDOMINAL WALL, PERC ENDO 02/15/2015 Results Test Result Range Complete blood count (CBC) with automated white blood cell (WBC) differential - 11/28/15 16:14 Blood leukocytes automated count (number/volume) 11.8 10*3/uL 4.3-11.0 Blood erythrocytes automated count (number/volume) 4.07 10*6/uL 4.35-5.85 Venous blood hemoglobin measurement (mass/volume) 12.0 g/dL 13.3-17.7 Blood hematocrit (volume fraction) 37 % 40-54 Automated erythrocyte mean corpuscular volume 91 [foz_us] 80-99 Automated erythrocyte mean corpuscular hemoglobin (mass per erythrocyte) 29 pg 25-34 Automated erythrocyte mean corpuscular hemoglobin concentration measurement ( mass/volume) 32 g/dL 32-36 Automated erythrocyte distribution width ratio 13.3 % 10.0-14.5 Automated blood platelet count (count/volume) 241 10*3/uL 130-400 Automated blood platelet mean volume measurement 10.0 [foz_us] 7.4-10.4 Automated blood neutrophils/100 leukocytes 72 % 42-75 Automated blood lymphocytes/100 leukocytes 17 % 12-44 Blood monocytes/100 leukocytes 9 % 0-12 Automated blood eosinophils/100 leukocytes 1 % 0-10 Automated blood basophils/100 leukocytes 0 % 0-10 Blood neutrophils automated count (number/volume) 8.5 10*3 1.8-7.8 Blood lymphocytes automated count (number/volume) 2.1 10*3 1.0-4.0 Blood monocytes automated count (number/volume) 1.1 10*3 0.0-1.0 Automated eosinophil count 0.1 10*3/uL 0.0-0.3 Automated blood basophil count (count/volume) 0.0 10*3/uL 0.0-0.1 Whole blood basic metabolic panel - 11/28/15 16:14 Serum or plasma sodium measurement (moles/volume) 141 mmol/L 135-145 Serum or plasma potassium measurement (moles/volume) 2.7 mmol/L 3.6-5.0 Serum or plasma chloride measurement (moles/volume) 99 mmol/L 98-107 Carbon dioxide 31 mmol/L 21-32 Serum or plasma anion gap determination (moles/volume) 11 mmol/L 5-14 Serum or plasma urea nitrogen measurement (mass/volume) 8 mg/dL 7-18 Serum or plasma creatinine measurement (mass/volume) 0.97 mg/dL 0.60-1.30 Serum or plasma urea nitrogen/creatinine mass ratio 8 NRG Serum or plasma creatinine measurement with calculation of estimated glomerular filtration rate > NRG Serum or plasma glucose measurement (mass/volume) 84 mg/dL 70-105 Serum or plasma calcium measurement (mass/volume) 9.2 mg/dL 8.5-10.1 Complete blood count (CBC) with automated white blood cell (WBC) differential - 05/07/16 10:20 Blood leukocytes automated count (number/volume) 9.0 10*3/uL 4.3-11.0 Blood erythrocytes automated count (number/volume) 4.11 10*6/uL 4.35-5.85 Venous blood hemoglobin measurement (mass/volume) 11.8 g/dL 13.3-17.7 Blood hematocrit (volume fraction) 37 % 40-54 Automated erythrocyte mean corpuscular volume 90 [foz_us] 80-99 Automated erythrocyte mean corpuscular hemoglobin (mass per erythrocyte) 29 pg 25-34 Automated erythrocyte mean corpuscular hemoglobin concentration measurement ( mass/volume) 32 g/dL 32-36 Automated erythrocyte distribution width ratio 13.9 % 10.0-14.5 Automated blood platelet count (count/volume) 215 10*3/uL 130-400 Automated blood platelet mean volume measurement 9.5 [foz_us] 7.4-10.4 Automated blood neutrophils/100 leukocytes 63 % 42-75 Automated blood lymphocytes/100 leukocytes 24 % 12-44 Blood monocytes/100 leukocytes 9 % 0-12 Automated blood eosinophils/100 leukocytes 4 % 0-10 Automated blood basophils/100 leukocytes 0 % 0-10 Blood neutrophils automated count (number/volume) 5.6 10*3 1.8-7.8 Blood lymphocytes automated count (number/volume) 2.2 10*3 1.0-4.0 Blood monocytes automated count (number/volume) 0.8 10*3 0.0-1.0 Automated eosinophil count 0.3 10*3/uL 0.0-0.3 Automated blood basophil count (count/volume) 0.0 10*3/uL 0.0-0.1 Comprehensive metabolic panel - 05/07/16 10:20 Serum or plasma sodium measurement (moles/volume) 143 mmol/L 135-145 Serum or plasma potassium measurement (moles/volume) 3.5 mmol/L 3.6-5.0 Serum or plasma chloride measurement (moles/volume) 104 mmol/L 98-107 Carbon dioxide 26 mmol/L 21-32 Serum or plasma anion gap determination (moles/volume) 13 mmol/L 5-14 Serum or plasma urea nitrogen measurement (mass/volume) 8 mg/dL 7-18 Serum or plasma creatinine measurement (mass/volume) 1.08 mg/dL 0.60-1.30 Serum or plasma urea nitrogen/creatinine mass ratio 7 NRG Serum or plasma creatinine measurement with calculation of estimated glomerular filtration rate > NRG Serum or plasma glucose measurement (mass/volume) 106 mg/dL 70-105 Serum or plasma calcium measurement (mass/volume) 8.8 mg/dL 8.5-10.1 Serum or plasma total bilirubin measurement (mass/volume) 0.8 mg/dL 0.1-1.0 Serum or plasma alkaline phosphatase measurement (enzymatic activity/volume) 110 U/L 40-136 Serum or plasma aspartate aminotransferase measurement (enzymatic activity/ volume) 26 U/L 5-34 Serum or plasma alanine aminotransferase measurement (enzymatic activity/volume ) 19 U/L 0-55 Serum or plasma protein measurement (mass/volume) 6.7 g/dL 6.4-8.2 Serum or plasma albumin measurement (mass/volume) 3.4 g/dL 3.2-4.5 Lipid 1996 panel - 05/07/16 10:20 Serum or plasma triglyceride measurement (mass/volume) 136 mg/dL <150 Serum or plasma cholesterol measurement (mass/volume) 172 mg/dL < 200 Serum or plasma cholesterol in HDL measurement (mass/volume) 45 mg/ dL 40-60 Cholesterol in LDL [mass/volume] in serum or plasma by direct assay 107 mg/dL 1-129 Serum or plasma cholesterol in VLDL measurement (mass/volume) 27 mg/ dL 5-40 Hemoglobin A1c - 05/07/16 10:20 Hemoglobin A1c 6.1 % 4.5-6.2 THYROID STIMULATING HORMONE - 05/07/16 10:20 THYROID STIMULATING HORMONE 4.57 u[iU]/mL 0.35-4.94 Complete blood count (CBC) with automated white blood cell (WBC) differential - 05/15/16 18:51 Blood leukocytes automated count (number/volume) 9.2 10*3/uL 4.3-11.0 Blood erythrocytes automated count (number/volume) 4.01 10*6/uL 4.35-5.85 Venous blood hemoglobin measurement (mass/volume) 11.8 g/dL 13.3-17.7 Blood hematocrit (volume fraction) 37 % 40-54 Automated erythrocyte mean corpuscular volume 92 [foz_us] 80-99 Automated erythrocyte mean corpuscular hemoglobin (mass per erythrocyte) 29 pg 25-34 Automated erythrocyte mean corpuscular hemoglobin concentration measurement ( mass/volume) 32 g/dL 32-36 Automated erythrocyte distribution width ratio 14.5 % 10.0-14.5 Automated blood platelet count (count/volume) 178 10*3/uL 130-400 Automated blood platelet mean volume measurement 10.0 [foz_us] 7.4-10.4 Automated blood neutrophils/100 leukocytes 62 % 42-75 Automated blood lymphocytes/100 leukocytes 23 % 12-44 Blood monocytes/100 leukocytes 12 % 0-12 Automated blood eosinophils/100 leukocytes 3 % 0-10 Automated blood basophils/100 leukocytes 0 % 0-10 Blood neutrophils automated count (number/volume) 5.7 10*3 1.8-7.8 Blood lymphocytes automated count (number/volume) 2.1 10*3 1.0-4.0 Blood monocytes automated count (number/volume) 1.1 10*3 0.0-1.0 Automated eosinophil count 0.2 10*3/uL 0.0-0.3 Automated blood basophil count (count/volume) 0.0 10*3/uL 0.0-0.1 Whole blood basic metabolic panel - 05/15/16 18:51 Serum or plasma sodium measurement (moles/volume) 144 mmol/L 135-145 Serum or plasma potassium measurement (moles/volume) 3.3 mmol/L 3.6-5.0 Serum or plasma chloride measurement (moles/volume) 104 mmol/L 98-107 Carbon dioxide 27 mmol/L 21-32 Serum or plasma anion gap determination (moles/volume) 13 mmol/L 5-14 Serum or plasma urea nitrogen measurement (mass/volume) 7 mg/dL 7-18 Serum or plasma creatinine measurement (mass/volume) 1.12 mg/dL 0.60-1.30 Serum or plasma urea nitrogen/creatinine mass ratio 6 NRG Serum or plasma creatinine measurement with calculation of estimated glomerular filtration rate > NRG Serum or plasma glucose measurement (mass/volume) 148 mg/dL 70-105 Serum or plasma calcium measurement (mass/volume) 8.9 mg/dL 8.5-10.1 Complete urinalysis with reflex to culture - 06/19/16 15:00 Urine color determination YELLOW NRG Urine clarity determination CLEAR NRG Urine pH measurement by test strip 7 5-9 Specific gravity of urine by test strip 1.010 1.016- 1.022 Urine protein assay by test strip, semi-quantitative 2+ NEGATIVE Urine glucose detection by automated test strip NEGATIVE NEGATIVE Erythrocytes detection in urine sediment by light microscopy 5+ NEGATIVE Urine ketones detection by automated test strip NEGATIVE NEGATIVE Urine nitrite detection by test strip NEGATIVE NEGATIVE Urine total bilirubin detection by test strip NEGATIVE NEGATIVE Urine urobilinogen measurement by automated test strip (mass/volume) NORMAL NORMAL Urine leukocyte esterase detection by dipstick 3+ NEGATIVE Automated urine sediment erythrocyte count by microscopy (number/high power field) TNTC NRG Automated urine sediment leukocyte count by microscopy (number/high power field ) [HPF] NRG Bacteria detection in urine sediment by light microscopy NEGATIVE NRG Squamous epithelial cells detection in urine sediment by light microscopy NONE NRG Crystals detection in urine sediment by light microscopy NONE NRG Casts detection in urine sediment by light microscopy NONE NRG Mucus detection in urine sediment by light microscopy NEGATIVE NRG Complete urinalysis with reflex to culture YES NRG Bacterial urine culture - 06/19/16 15:00 Bacterial urine culture [id number] NRG COLONY COUNT <10,000 NRG Comprehensive metabolic panel - 10/03/16 12:40 Serum or plasma sodium measurement (moles/volume) 141 mmol/L 135-145 Serum or plasma potassium measurement (moles/volume) 4.5 mmol/L 3.6-5.0 Serum or plasma chloride measurement (moles/volume) 103 mmol/L 98-107 Carbon dioxide 28 mmol/L 21-32 Serum or plasma anion gap determination (moles/volume) 10 mmol/L 5-14 Serum or plasma urea nitrogen measurement (mass/volume) 13 mg/dL 7-18 Serum or plasma creatinine measurement (mass/volume) 1.15 mg/dL 0.60-1.30 Serum or plasma urea nitrogen/creatinine mass ratio 11 NRG Serum or plasma creatinine measurement with calculation of estimated glomerular filtration rate > NRG Serum or plasma glucose measurement (mass/volume) 86 mg/dL 70-105 Serum or plasma calcium measurement (mass/volume) 9.7 mg/dL 8.5-10.1 Serum or plasma total bilirubin measurement (mass/volume) 0.8 mg/dL 0.1-1.0 Serum or plasma alkaline phosphatase measurement (enzymatic activity/volume) 116 U/L 40-136 Serum or plasma aspartate aminotransferase measurement (enzymatic activity/ volume) 21 U/L 5-34 Serum or plasma alanine aminotransferase measurement (enzymatic activity/volume ) 13 U/L 0-55 Serum or plasma protein measurement (mass/volume) 7.8 g/dL 6.4-8.2 Serum or plasma albumin measurement (mass/volume) 4.2 g/dL 3.2-4.5 Lipid 1996 panel - 10/03/16 12:40 Serum or plasma triglyceride measurement (mass/volume) 147 mg/dL <150 Serum or plasma cholesterol measurement (mass/volume) 202 mg/dL < 200 Serum or plasma cholesterol in HDL measurement (mass/volume) 53 mg/ dL 40-60 Cholesterol in LDL [mass/volume] in serum or plasma by direct assay 131 mg/dL 1-129 Serum or plasma cholesterol in VLDL measurement (mass/volume) 29 mg/ dL 5-40 Hemoglobin A1c - 10/03/16 12:40 Hemoglobin A1c 4.6 % 4.5-6.2 Urine microalbumin measurement by test strip (mass/volume) - 10/03/16 12:47 Urine creatinine measurement (mass/volume) 39 % NRG Microalbumin [mass/volume] in urine 63.2 % 0.0-20.0 Microalbumin/creatinine [ratio] in urine 162.1 mg/g{Cre} 0.0-30.0 Comprehensive metabolic panel - 01/04/17 12:43 Serum or plasma sodium measurement (moles/volume) 144 mmol/L 135-145 Serum or plasma potassium measurement (moles/volume) 4.3 mmol/L 3.6-5.0 Serum or plasma chloride measurement (moles/volume) 109 mmol/L 98-107 Carbon dioxide 24 mmol/L 21-32 Serum or plasma anion gap determination (moles/volume) 11 mmol/L 5-14 Serum or plasma urea nitrogen measurement (mass/volume) 22 mg/dL 7-18 Serum or plasma creatinine measurement (mass/volume) 1.40 mg/dL 0.60-1.30 Serum or plasma urea nitrogen/creatinine mass ratio 16 NRG Serum or plasma creatinine measurement with calculation of estimated glomerular filtration rate 58 NRG Serum or plasma glucose measurement (mass/volume) 99 mg/dL 70-105 Serum or plasma calcium measurement (mass/volume) 9.0 mg/dL 8.5-10.1 Serum or plasma total bilirubin measurement (mass/volume) 0.6 mg/dL 0.1-1.0 Serum or plasma alkaline phosphatase measurement (enzymatic activity/volume) 120 U/L 40-136 Serum or plasma aspartate aminotransferase measurement (enzymatic activity/ volume) 15 U/L 5-34 Serum or plasma alanine aminotransferase measurement (enzymatic activity/volume ) 8 U/L 0-55 Serum or plasma protein measurement (mass/volume) 7.6 g/dL 6.4-8.2 Serum or plasma albumin measurement (mass/volume) 3.8 g/dL 3.2-4.5 Serum or plasma triglyceride measurement (mass/volume) - 01/04/17 12:43 Serum or plasma triglyceride measurement (mass/volume) 266 mg/dL <150 Serum or plasma cholesterol measurement (mass/volume) - 01/04/17 12:43 Serum or plasma cholesterol measurement (mass/volume) 223 mg/dL < 200 Hemoglobin A1c - 01/04/17 12:43 Hemoglobin A1c 5.1 % 4.5-6.2 Complete blood count (CBC) with automated white blood cell (WBC) differential - 01/14/17 17:50 Blood leukocytes automated count (number/volume) 10.2 10*3/uL 4.3-11.0 Blood erythrocytes automated count (number/volume) 3.97 10*6/uL 4.35-5.85 Venous blood hemoglobin measurement (mass/volume) 11.8 g/dL 13.3-17.7 Blood hematocrit (volume fraction) 37 % 40-54 Automated erythrocyte mean corpuscular volume 94 [foz_us] 80-99 Automated erythrocyte mean corpuscular hemoglobin (mass per erythrocyte) 30 pg 25-34 Automated erythrocyte mean corpuscular hemoglobin concentration measurement ( mass/volume) 32 g/dL 32-36 Automated erythrocyte distribution width ratio 13.5 % 10.0-14.5 Automated blood platelet count (count/volume) 123 10*3/uL 130-400 Automated blood platelet mean volume measurement 11.1 [foz_us] 7.4-10.4 Automated blood neutrophils/100 leukocytes 73 % 42-75 Automated blood lymphocytes/100 leukocytes 14 % 12-44 Blood monocytes/100 leukocytes 11 % 0-12 Automated blood eosinophils/100 leukocytes 2 % 0-10 Automated blood basophils/100 leukocytes 0 % 0-10 Blood neutrophils automated count (number/volume) 7.4 10*3 1.8-7.8 Blood lymphocytes automated count (number/volume) 1.4 10*3 1.0-4.0 Blood monocytes automated count (number/volume) 1.1 10*3 0.0-1.0 Automated eosinophil count 0.2 10*3/uL 0.0-0.3 Automated blood basophil count (count/volume) 0.0 10*3/uL 0.0-0.1 Comprehensive metabolic panel - 01/14/17 17:50 Serum or plasma sodium measurement (moles/volume) 141 mmol/L 135-145 Serum or plasma potassium measurement (moles/volume) 4.0 mmol/L 3.6-5.0 Serum or plasma chloride measurement (moles/volume) 104 mmol/L 98-107 Carbon dioxide 26 mmol/L 21-32 Serum or plasma anion gap determination (moles/volume) 11 mmol/L 5-14 Serum or plasma urea nitrogen measurement (mass/volume) 29 mg/dL 7-18 Serum or plasma creatinine measurement (mass/volume) 1.49 mg/dL 0.60-1.30 Serum or plasma urea nitrogen/creatinine mass ratio 19 NRG Serum or plasma creatinine measurement with calculation of estimated glomerular filtration rate 54 NRG Serum or plasma glucose measurement (mass/volume) 90 mg/dL 70-105 Serum or plasma calcium measurement (mass/volume) 8.5 mg/dL 8.5-10.1 Serum or plasma total bilirubin measurement (mass/volume) 1.2 mg/dL 0.1-1.0 Serum or plasma alkaline phosphatase measurement (enzymatic activity/volume) 117 U/L 40-136 Serum or plasma aspartate aminotransferase measurement (enzymatic activity/ volume) 18 U/L 5-34 Serum or plasma alanine aminotransferase measurement (enzymatic activity/volume ) 14 U/L 0-55 Serum or plasma protein measurement (mass/volume) 6.5 g/dL 6.4-8.2 Serum or plasma albumin measurement (mass/volume) 3.4 g/dL 3.2-4.5 Serum or plasma troponin i.cardiac measurement (mass/volume) - 01/14/17 17:50 Serum or plasma troponin i.cardiac measurement (mass/volume) < ng/ mL <0.30 Serum or plasma lithium measurement (moles/volume) - 01/14/17 17:50 BNP level 1261.2 pg/mL <100.0 Complete urinalysis with reflex to culture - 01/14/17 18:23 Urine color determination NORM NRG Urine clarity determination VERY CLOUDY NRG Urine pH measurement by test strip 8 5-9 Specific gravity of urine by test strip 1.015 1.016- 1.022 Urine protein assay by test strip, semi-quantitative 3+ NEGATIVE Urine glucose detection by automated test strip NEGATIVE NEGATIVE Erythrocytes detection in urine sediment by light microscopy 4+ NEGATIVE Urine ketones detection by automated test strip NEGATIVE NEGATIVE Urine nitrite detection by test strip NEGATIVE NEGATIVE Urine total bilirubin detection by test strip NEGATIVE NEGATIVE Urine urobilinogen measurement by automated test strip (mass/volume) 1 mg/dL NORMAL Urine leukocyte esterase detection by dipstick 3+ NEGATIVE Automated urine sediment erythrocyte count by microscopy (number/high power field) [HPF] NRG Automated urine sediment leukocyte count by microscopy (number/high power field ) [HPF] NRG Bacteria detection in urine sediment by light microscopy LARGE NRG Squamous epithelial cells detection in urine sediment by light microscopy NONE NRG Crystals detection in urine sediment by light microscopy NONE NRG Casts detection in urine sediment by light microscopy NONE NRG Mucus detection in urine sediment by light microscopy NEGATIVE NRG Complete urinalysis with reflex to culture YES NRG Bacterial urine culture - 01/14/17 18:23 Bacterial urine culture [id number] NRG COLONY COUNT >100,000/ML NRG FTX;REPORTABLE SENSITIVITIES REPORTED 01/16/17 7:35 NRG Bacterial susceptibility panel - 01/14/17 18:23 Gentamicin susceptibility test by minimum inhibitory concentration < = NRG Trimethoprim/sulfamethoxazole susceptibility test by minimum inhibitoryconcentration S NRG Ampicillin susceptibility test by minimum inhibitory concentration < = NRG Tobramycin susceptibility test by minimum inhibitory concentration < = NRG Cefazolin susceptibility test by minimum inhibitory concentration < = NRG Ceftriaxone susceptibility test by minimum inhibitory concentration <= NRG Ampicillin/sulbactam susceptibility test by minimum inhibitory concentration <= NRG Piperacillin/tazobactam susceptibility test by minimum inhibitory concentration <= NRG Ciprofloxacin susceptibility test by minimum inhibitory concentration <= NRG Meropenem susceptibility test by minimum inhibitory concentration < = NRG Nitrofurantoin susceptibility test by minimum inhibitory concentration <= NRG Aztreonam susceptibility test by minimum inhibitory concentration < = NRG Extended spectrum beta lactamase (ESBL) producing bacteria susceptibility test by minimum inhibitory concentration - [facility] Bacterial susceptibility panel - 01/14/17 18:23 Gentamicin susceptibility test by minimum inhibitory concentration < = NRG Trimethoprim/sulfamethoxazole susceptibility test by minimum inhibitoryconcentration S NRG Ampicillin susceptibility test by minimum inhibitory concentration > = NRG Tobramycin susceptibility test by minimum inhibitory concentration < = NRG Cefazolin susceptibility test by minimum inhibitory concentration < = NRG Ceftriaxone susceptibility test by minimum inhibitory concentration <= NRG Ampicillin/sulbactam susceptibility test by minimum inhibitory concentration 4 NRG Piperacillin/tazobactam susceptibility test by minimum inhibitory concentration <= NRG Ciprofloxacin susceptibility test by minimum inhibitory concentration <= NRG Meropenem susceptibility test by minimum inhibitory concentration < = NRG Nitrofurantoin susceptibility test by minimum inhibitory concentration <= NRG Aztreonam susceptibility test by minimum inhibitory concentration < = NRG Extended spectrum beta lactamase (ESBL) producing bacteria susceptibility test by minimum inhibitory concentration - [facility] Bacterial susceptibility panel - 01/14/17 18:23 Gentamicin susceptibility test by minimum inhibitory concentration R NRG Vancomycin susceptibility test by minimum inhibitory concentration 1 NRG Levofloxacin susceptibility test by minimum inhibitory concentration >= NRG Tetracycline susceptibility test by minimum inhibitory concentration <= NRG Ampicillin susceptibility test by minimum inhibitory concentration < = NRG Nitrofurantoin susceptibility test by minimum inhibitory concentration <= NRG Linezolid susceptibility test by minimum inhibitory concentration 1 NRG Complete blood count (CBC) with automated white blood cell (WBC) differential - 01/15/17 04:25 Blood leukocytes automated count (number/volume) 10.4 10*3/uL 4.3-11.0 Blood erythrocytes automated count (number/volume) 4.32 10*6/uL 4.35-5.85 Venous blood hemoglobin measurement (mass/volume) 12.9 g/dL 13.3-17.7 Blood hematocrit (volume fraction) 40 % 40-54 Automated erythrocyte mean corpuscular volume 93 [foz_us] 80-99 Automated erythrocyte mean corpuscular hemoglobin (mass per erythrocyte) 30 pg 25-34 Automated erythrocyte mean corpuscular hemoglobin concentration measurement ( mass/volume) 32 g/dL 32-36 Automated erythrocyte distribution width ratio 13.6 % 10.0-14.5 Automated blood platelet count (count/volume) 137 10*3/uL 130-400 Automated blood platelet mean volume measurement 12.0 [foz_us] 7.4-10.4 Automated blood neutrophils/100 leukocytes 72 % 42-75 Automated blood lymphocytes/100 leukocytes 15 % 12-44 Blood monocytes/100 leukocytes 9 % 0-12 Automated blood eosinophils/100 leukocytes 4 % 0-10 Automated blood basophils/100 leukocytes 0 % 0-10 Blood neutrophils automated count (number/volume) 7.5 10*3 1.8-7.8 Blood lymphocytes automated count (number/volume) 1.5 10*3 1.0-4.0 Blood monocytes automated count (number/volume) 1.0 10*3 0.0-1.0 Automated eosinophil count 0.4 10*3/uL 0.0-0.3 Automated blood basophil count (count/volume) 0.0 10*3/uL 0.0-0.1 Comprehensive metabolic panel - 01/15/17 04:25 Serum or plasma sodium measurement (moles/volume) 143 mmol/L 135-145 Serum or plasma potassium measurement (moles/volume) 4.4 mmol/L 3.6-5.0 Serum or plasma chloride measurement (moles/volume) 105 mmol/L 98-107 Carbon dioxide 25 mmol/L 21-32 Serum or plasma anion gap determination (moles/volume) 13 mmol/L 5-14 Serum or plasma urea nitrogen measurement (mass/volume) 30 mg/dL 7-18 Serum or plasma creatinine measurement (mass/volume) 1.64 mg/dL 0.60-1.30 Serum or plasma urea nitrogen/creatinine mass ratio 18 NRG Serum or plasma creatinine measurement with calculation of estimated glomerular filtration rate 48 NRG Serum or plasma glucose measurement (mass/volume) 112 mg/dL 70-105 Serum or plasma calcium measurement (mass/volume) 8.9 mg/dL 8.5-10.1 Serum or plasma total bilirubin measurement (mass/volume) 0.9 mg/dL 0.1-1.0 Serum or plasma alkaline phosphatase measurement (enzymatic activity/volume) 125 U/L 40-136 Serum or plasma aspartate aminotransferase measurement (enzymatic activity/ volume) 23 U/L 5-34 Serum or plasma alanine aminotransferase measurement (enzymatic activity/volume ) 14 U/L 0-55 Serum or plasma protein measurement (mass/volume) 7.5 g/dL 6.4-8.2 Serum or plasma albumin measurement (mass/volume) 3.6 g/dL 3.2-4.5 Capillary blood glucose measurement by glucometer (mass/volume) - 01/15/17 17: 02 Capillary blood glucose measurement by glucometer (mass/volume) 108 mg/dL 70-110 Complete blood count (CBC) with automated white blood cell (WBC) differential - 01/16/17 04:20 Blood leukocytes automated count (number/volume) 9.9 10*3/uL 4.3-11.0 Blood erythrocytes automated count (number/volume) 3.80 10*6/uL 4.35-5.85 Venous blood hemoglobin measurement (mass/volume) 11.3 g/dL 13.3-17.7 Blood hematocrit (volume fraction) 36 % 40-54 Automated erythrocyte mean corpuscular volume 95 [foz_us] 80-99 Automated erythrocyte mean corpuscular hemoglobin (mass per erythrocyte) 30 pg 25-34 Automated erythrocyte mean corpuscular hemoglobin concentration measurement ( mass/volume) 32 g/dL 32-36 Automated erythrocyte distribution width ratio 13.6 % 10.0-14.5 Automated blood platelet count (count/volume) 145 10*3/uL 130-400 Automated blood platelet mean volume measurement 11.5 [foz_us] 7.4-10.4 Automated blood neutrophils/100 leukocytes 75 % 42-75 Automated blood lymphocytes/100 leukocytes 14 % 12-44 Blood monocytes/100 leukocytes 9 % 0-12 Automated blood eosinophils/100 leukocytes 2 % 0-10 Automated blood basophils/100 leukocytes 0 % 0-10 Blood neutrophils automated count (number/volume) 7.4 10*3 1.8-7.8 Blood lymphocytes automated count (number/volume) 1.4 10*3 1.0-4.0 Blood monocytes automated count (number/volume) 0.9 10*3 0.0-1.0 Automated eosinophil count 0.2 10*3/uL 0.0-0.3 Automated blood basophil count (count/volume) 0.0 10*3/uL 0.0-0.1 Comprehensive metabolic panel - 01/16/17 04:20 Serum or plasma sodium measurement (moles/volume) 144 mmol/L 135-145 Serum or plasma potassium measurement (moles/volume) 3.7 mmol/L 3.6-5.0 Serum or plasma chloride measurement (moles/volume) 108 mmol/L 98-107 Carbon dioxide 25 mmol/L 21-32 Serum or plasma anion gap determination (moles/volume) 11 mmol/L 5-14 Serum or plasma urea nitrogen measurement (mass/volume) 21 mg/dL 7-18 Serum or plasma creatinine measurement (mass/volume) 1.31 mg/dL 0.60-1.30 Serum or plasma urea nitrogen/creatinine mass ratio 16 NRG Serum or plasma creatinine measurement with calculation of estimated glomerular filtration rate > NRG Serum or plasma glucose measurement (mass/volume) 109 mg/dL 70-105 Serum or plasma calcium measurement (mass/volume) 8.3 mg/dL 8.5-10.1 Serum or plasma total bilirubin measurement (mass/volume) 0.7 mg/dL 0.1-1.0 Serum or plasma alkaline phosphatase measurement (enzymatic activity/volume) 101 U/L 40-136 Serum or plasma aspartate aminotransferase measurement (enzymatic activity/ volume) 17 U/L 5-34 Serum or plasma alanine aminotransferase measurement (enzymatic activity/volume ) 13 U/L 0-55 Serum or plasma protein measurement (mass/volume) 6.0 g/dL 6.4-8.2 Serum or plasma albumin measurement (mass/volume) 3.1 g/dL 3.2-4.5 Encounters ACCT No. Visit Date/Time Discharge Status Pt. Type Provider Facility Loc./Unit Complaint [id number] 01/28/2017 14:33:00 01/28/2017 23:59:59 CLS Outpatient LILIANA ALCOCER MD [facility] WOUND[facility] [id number] 01/16/2017 15:34:00 01/16/2017 23:59:59 CLS Outpatient LILIANA ALCOCER MD [facility] WOUND[facility] [id number] 01/15/2017 12:42:00 01/15/2017 16:23:00 DIS Inpatient CALLIE MCKEON DO [facility] ICU DYSPNEA [id number] 01/09/2017 14:40:00 01/09/2017 23:59:59 CLS Outpatient [facility]IA[facility]COCER [id number] 01/04/2017 11:34:00 01/04/2017 23:59:59 CLS Outpatient CALLIE MCKEON DO [facility] LAB E78.0 E78.1 Z00.00 E11.65 [id number] 01/04/2017 11:25:00 01/04/2017 23:59:59 CLS Outpatient LILIANA ALCOCER MD [facility] [id number] 10/03/2016 12:24:00 10/03/2016 23:59:59 CLS Outpatient LINDA CANAS CALLIE [facility] LAB E11.65 E78.0 E78.1 Z00.00 [id number] 08/30/2016 12:43:00 09/24/2016 16:00:00 DIS Outpatient SHIVA DELGADO APRN [facility] [id number] 06/19/2016 14:41:00 06/19/2016 17:00:00 DIS Emergency MATTHEW RODRIGUEZ, FERNANDO Arenas [facility] ER ABD PAIN UNABLE TO URINATE/CONSTIPATION [id number] 05/15/2016 17:41:00 05/15/2016 20:34:00 DIS Emergency BURTON MODI APRN [facility] ER L LEG,FOOT SWELLING [id number] 05/07/2016 10:08:00 05/07/2016 23:59:59 CLS Outpatient MCKEON CALLIE [facility] LAB E11.65,E78.1,E78.0 [id number] 12/23/2015 10:08:00 12/23/2015 12:00:00 DIS Outpatient LILIANA ALCOCER MD [facility] WOUND[facility] [id number] 12/13/2015 09:29:00 12/13/2015 23:59:59 CLS Outpatient LILIANA ALCOCER MD [facility] RAD PAD [id number] 11/28/2015 15:57:00 11/28/2015 18:05:00 DIS Emergency BURTON MODI APRN [facility] ER RT LEG,FOOT SWELLING [id number] 09/07/2015 11:50:00 09/07/2015 23:59:59 CLS Outpatient CALLIE MCKEON DO [facility] LAB GENERAL ADULT MED EXAM, HYPERGLYCEMIA,HYPERCHOLEST [id number] 08/08/2015 23:06:00 08/09/2015 01:02:00 DIS Emergency MATTHEW RODRIGUEZ, FERNANDO Arenas [facility] ER CATH HAS BLOOD IN IT, BLADDER INFECTION [id number] 06/23/2015 08:23:00 06/23/2015 23:59:59 CLS Outpatient VEGAELIZABETH AL L CORN DETASSELER [facility] CARD CAD,HLP,ISCHEMIC CARDIOMYOPATHY,CARDIAC PACEMAKER [id number] 06/01/2015 13:04:00 06/01/2015 23:59:59 CLS Outpatient RUDOLPH BUSH MD [facility] RAD HEMATURIA [id number] 05/09/2015 13:18:00 05/09/2015 15:31:00 DIS Emergency SARY BERNAL DO [facility] ER BLOOD ON CATHETER [id number] 05/03/2015 12:03:00 05/03/2015 23:59:59 CLS Outpatient CALLIE MCKEON DO [facility] LAB HYPERCHOLESTEROLEMIA, MEDS EXAMINATION [id number] 02/18/2015 11:46:00 03/11/2015 14:00:00 DIS Inpatient VICENTA RODRIGUEZ, ABE Mathew [facility] IRF [id number] 02/13/2015 17:30:00 02/18/2015 11:46:00 DIS Inpatient CALLIE MCKEON DO [facility] 4TH CHOLELITHIASIS W/ CHOLECYSTITIS PANCREATITIS UTI [id number] 01/20/2015 10:09:00 01/20/2015 23:59:59 CLS Outpatient CALLIE MCKEON DO [facility] LAB DM TYPE II, HYPERCHOLETEROLMA, GENERAL EXAN [id number] 09/06/2014 13:49:00 09/06/2014 14:21:00 DIS Emergency RICARDA HARTMANN MD [facility] ER CATHETER LEAKING [id number] 03/31/2014 15:23:00 03/31/2014 19:38:00 DIS Emergency FERNANDO CASTRO MD [facility] ER ABD PAIN [id number] 01/25/2014 16:45:00 01/25/2014 18:01:00 DIS Emergency SHAWN JUDGE [facility] ER CATH PROBLEMS [id number] 11/25/2013 14:00:00 11/25/2013 15:05:00 DIS Emergency SILVA HENDERSON DO K [facility] ER ABD PAIN [id number] 10/26/2013 10:03:00 10/26/2013 23:59:59 CLS Outpatient JEAN PAUL RODRIGUEZ FACC, ARI AKINS CCDS [facility] CARD ISCHEMIC CARDIOMETHAPY [id number] 04/19/2013 15:17:00 04/19/2013 19:58:00 DIS Emergency FATEMEH WONG MD [facility] ER ABDOMINAL PAIN [id number] 03/02/2013 12:52:00 03/02/2013 15:07:00 DIS Emergency BRUTON MODI GEODETIC SURVEY DIRECTOR [facility] ER CONSTIPATION [id number] 05/03/2014 21:39:00 Document Registration [id number] 04/30/2014 10:44:00 Document Registration [id number] 04/28/2014 15:31:00 Document Registration [id number] 04/27/2014 16:22:00 Document Registration [id number] 04/23/2011 00:53:00 Document Registration [id number] 07/10/2010 10:52:00 Document Registration [id number] 02/08/2009 09:44:00 Document Registration
== END 2017-03-09 00:27 | disposition home or self-care (01) ==
LOC: EDUNIT# 22:04 → ER 22:06
DX: T85.518A Breakdown (mechanical) of other gastrointestinal prosthetic devices, implants and grafts, initial encounter (principal); F32.9 Major depressive disorder, single episode, unspecified; E11.9 Type 2 diabetes mellitus without complications; K59.09 Other constipation; E78.00 Pure hypercholesterolemia, unspecified; I10 Essential (primary) hypertension; F03.90 Unspecified dementia, unspecified severity, without behavioral disturbance, psychotic disturbance, mood disturbance, and anxiety; Z87.891 Personal history of nicotine dependence; Z87.19 Personal history of other diseases of the digestive system; Z87.440 Personal history of urinary (tract) infections; Z95.0 Presence of cardiac pacemaker
CPT/HCPCS: 99283

== ENCOUNTER 2017-04-09 07:20 | Inpatient (IN) | payer MEDICARE, OTHER ==
[~2017-04-09] VITALS: Ht 172.7 cm; Wt 74.3 kg
[~2017-04-09 07:20] MED LIST changes: +CEPH250C PO; +POTA10CA43 PO
[2017-04-09] MEDS ORDERED: D5 NS 1000 ML IV SOLUTION 1,000 ML IV ONE (07:21)
[2017-04-09] MEDS ORDERED: DEXTROSE 50% 50 ML (IMS) SYR IV ONE (07:30)
--- NOTE | 2017-04-09 07:44 | ED General ---
General Stated Complaint: UNRESPONSIVE Source of Information: EMS, Family ([facility]), Old Records (ALL PMH IS FROM OLD RECORDS) Exam Limitations: Other (PT IS NON-VERBAL/ALTERED MENTAL STATUS ) History of Present Illness Date Seen by Provider: Apr 09, 2017 Time Seen by Provider: 07:15 Initial Comments PT ARRIVES VIA EMS FROM HOME--APPARENTLY LIVES WITH A FAMILY MEMBER PER EMS, PT WAS FOUND UNRESPONSIVE BY FLOATING DERRICK OPERATOR EMS DID NOT CHECK BLOOD GLUCOSE, BUT STARTED I/O IN LEFT LOWER LEG AND GAVE 1/2 AMP D50 LATER CHECKED BLOOD GLUCOSE AND WAS 73 NO OTHER INFORMATION IS OBTAINABLE ON ARRIVAL PT MOANS/GROWLS/WAILS WITH ANY MOVEMENTS, KEEPS EYES CLOSED, DOES NOT TALK OR FOLLOW OR COMMANDS, OR ACKNOWLEDGE THAT ANYONE IS IN ROOM. PT WITH SUPRAPUBIC CATHETER IN PLACE, BUT PT AND CLOTHING COMPLETELY SATURATED WITH FOUL-SMELLING URINE. PT ALSO WITH CONSTANT, LARGE AMOUNT OF URINE LEAKING FROM PENIS WELL AROUND SUPRAPUBIC SITE. NO DRESSING AROUND SUPRAPUBIC SITE. THERE IS NO URINE IN LEG BAG FROM SUPRAPUBIC CATHETER. POOR HYGIENE. ACCUCHECK 75 ON ARRIVAL HERE ON REVIEW OF OLD RECORDS, PT WAS JUST ADMITTED HERE 03/14/17-03/20/17 FOR BILATERAL LEG CELLULITIS WITH SEPSIS. PT NOTED TO BE VERY CONFUSED AND HAS DEMENTIA. DISCHARGE SUMMARY NOTED THAT PT WAS SUPPOSED TO BE ADMITTED TO [facility] ON DISMISSAL FROM HOSPITAL. HOWEVER, PT CAME FROM HOME TODAY SON ARRIVES AND ADDITIONAL INFORMATION IS OBTAINED: HE STATES PT ATE BREAKFAST YESTERDAY AM, FEW BITES OF SANDWICH YESTERDAY AROUND 1600, DRANK CRANBERRY APPLE JUICE YESTERDAY AM, THEN NO OTHER INTAKE YESTERDAY. PT BEGAN HAVING LETHARGY/DECREASED MENTATION FROM LATE MORNING YESTERDAY. DID RECEIVE PM MEDICATIONS LAST NIGHT AND HAD PAIN PILL AROUND 1999 FOR CHRONIC LOWER LEG AND FEET PAIN DID NOT CHECK BLOOD GLUCOSE YESTERDAY OR TODAY SON REPORTS THAT PT DID GO TO [facility] AFTER DISMISSAL FROM LAST HOSPITALIZATION, BUT BROUGHT HIM BACK HOME ON Saturday04/06/17 DUE TO MULTIPLE ISSUES-PT UNABLE TO DO THERAPY, NO [place] MEDICAID, FINANCIAL ISSUES, PER SON. PT WITH SEVERE DEMENTIA AND IS VERY MINIMALLY AMBULATORY PT HAS NOT FOLLOWED UP WITH DR. MCKEON OR ANY ONE SINCE DISMISSAL FROM HOSPITAL SON STATES PT IS DNR PCP: DR. MCKEON UROLOGIST: DR. BUSH Allergies and Home Medications Allergies Coded Allergies: Penicillins (Verified Allergy, Unknown, Pt has received Ancef & Cefepime in the past, 03/17/17) No Allergy Information Available (Unverified , 04/09/17) Home Medications Benazepril HCl 10 Mg Tablet, 10 MG PO DAILY, (Reported) LAST FILLED #30 01-17-17 Cephalexin 250 Mg Capsule, 500 MG PO QID, #20 Prescribed by: CALLIE MCKEON on 03/20/17 1029 Clopidogrel Bisulfate 75 Mg Tablet, 75 MG PO DAILY, (Reported) LAST FILLED #30 01-17-17 Donepezil HCl 10 Mg Tablet, 10 MG PO HS, (Reported) LAST FILLED #30 17 Furosemide 40 Mg Tablet, 40 MG PO BID, (Reported) LAST FILLED #60 01-17-17 Hydrocodone Bit/Acetaminophen 1 Tab Tab, 1 TAB PO Q4H PRN for PAIN-MODERATE, #30 Prescribed by: CALLIE MCKEON on 03/20/17 1029 Memantine HCl 10 Mg Tablet, 10 MG PO BID, (Reported) LAST FILLED #60 17 Metoprolol Tartrate 25 Mg Tablet, 25 MG PO BID, (Reported) LAST FILLED #60 01-17-17 Potassium Chloride 10 Meq Capsule.er, 10 MEQ PO DAILY for 30 Days Prescribed by: CALLIE MCKEON on 03/20/17 1029 Simvastatin 40 Mg Tablet, 40 MG PO HS, (Reported) LAST FILLED #30 17 Constitutional: other (UNABLE TO OBTAIN) Past Okxlftf-Lhveyd-Prcujp Hx Patient Social History Smoking Status: Former Smoker Type Used: Cigarettes Former Smoker, Quit: Mar 04, 2002 2nd Hand Smoke Exposure: No Recent Hopitalizations: No Immunizations Up To Date Tetanus Booster (TDap): Unknown Date of Pneumonia Vaccine: Apr 04, 2011 Date of Influenza Vaccine: Jan 05, 2017 Seasonal Allergies Seasonal Allergies: No Surgeries History of Surgeries: Yes (SUPRAPUBIC CATHETER FOR > 15 YEARS, PACEMAKER, 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"/AAA REPAIR 2002; AMPUTATED TOES; RIGHT INGUINAL HERNIA REPAIR) Surgeries: Abdominal, Bladder Surgery, Gallbladder, Orthopedic, Pacemaker, Vascular Surgery Respiratory History of Respiratory Disorde: Yes Respiratory Disorders: Pneumonia, COPD Currently Using CPAP: No Cardiovascular History of Cardiac Disorders: Yes (PACEMAKER FOR COMPLETE HEART BLOCK; "AORTIC STENT: CHF/FLUID OVERLOAD; CAROTID BRUIT-CHRONIC RCA OCCLUSION; ISCHEMIC CARDIOMYOPATHY) Cardiac Disorders: Cardiomyopathy, Chronic Edema/Swelling, Coronary Artery Disease, High Cholesterol, Hypertension, Irregular Heartbeat, Peripheral Vascular Neurological History of Neurological Disord: Yes (? NEUROPATHY IN LEGS/FEET? --[facility] REPORTS PT HAS CHRONIC PAIN TO BILATERAL LOWER LEGS AND FEET; SEVERE DEMENTIA) Neurological Disorders: Dementia, Neuropathy Reproductive System Hx Reproductive Disorders: No Genitourinary History of Genitourinary Disor: Yes (OUTLET OBSTRUCTION WITH SUPRAPUBIC CATHETER > 15 YEARS. CHRONIC SCROTAL EDEMA) Genitourinary Disorders: Bladder Infection, Renal Failure, Neurogenic Bladder, UTI-Chronic Gastrointestinal History of Gastrointestinal Di: Yes (C diff colitis) Gastrointestinal Disorders: Colitis, Gastrointestinal Bleed, Chronic Constipation, C-Diff, Irritable Bowel Musculoskeletal History of Musculoskeletal Dis: Yes (AMPUTATED TOES, GANGRENE; MINIMALLY AMBULATORY) Musculoskeletal Disorders: Amputee, Arthritis, Chronic Back Pain Endocrine History of Endocrine Disorders: Yes Endocrine Disorders: Diabetes, Non-Insulin dep HEENT History of HEENT Disorders: Yes HEENT Disorders: Glaucoma Loss of Vision: Bilateral Hearing Impairment: Hard of Hearing Cancer History of Cancer: No Psychosocial History of Psychiatric Problem: Yes Behavioral Health Disorders: Depression Integumentary History of Skin or Integumenta: Yes (FREQUENT CELLULITIS OF LEGS. CHRONIC LEG WOUNDS) Blood Transfusions History of Blood Disorders: Yes (CHRONIC ANEMIA) Family Medical History Family Medial History: Diabetes mellitus 19 FATHER FH: cancer 19 MOTHER Physical Exam Vital Signs Vital Sign - Last 12Hours 04/09/17 07:20 Temp 97.7 Pulse 65 Resp 18 B/P (MAP) 175/93 (120) Pulse Ox 88 O2 Delivery Nasal Cannula O2 Flow Rate 2.00 Capillary Refill : General Appearance: Chronically ill, Thin, Other (MENTATION NOTED ABOVE; EXTREMELY MALODOROUS OF OLD/FOUL-SMELLING URINE. ) HEENT: Other (ORAL MUCOSA DRY, VERY POOR DENTITION TO FEW REMAINING TEETH) Neck: Full Range of Motion, Carotid Bruit Respiratory: No Accessory Muscle Use, No Respiratory Distress, Rales (LEFT > RIGHT BASE) Cardiovascular: Regular Rate, Rhythm, No Edema, No JVD, No Murmur, Other (NO PEDAL PULSES) Gastrointestinal: No Pulsatile Mass, Soft, Abnormal Bowel Sounds (DECREASED), Other (LARGE MIDLINE SCAR FROM XYPOHOID TO PUBIS, LARGE SCAR TO RUQ. ) Genital/Rectal: Other (MARKED SCROTAL EDEMA, WITH EXTENSIVE MACERATION TO ENTIRE SCROTUM, NO OVERT EVIDENCE OF CELLULITIS--ENTIRE AREA SOAKED WITH URINE, PT HAS CONSTANT LEAKAGE OF URINE FROM PENIS, WELL LEAKAGE OF URINE FROM SUPRAPUBIC CATHETER SITE. ) Extremity: No Pedal Edema, Other (CHRONIC VENOUS STASIS CHANGES BILATERALLY-- SKIN WITH WOODY INDURATION AND SCALING. MULTIPLE SCABBED SORES TO BILATERAL LOWER LEGS. NO SWELLING, ERYTHEMA OR WARMTH TO LEGS. SKIN TO LOWER LEGS ACTUALLY WRINKLED/TENTING; I/O ACCESS TO LEFT LOWER LEG) Neurologic/Psychiatric: Other (MENTATION NOTED ABOVE. PT DOES APPEAR TO MOVE ALL EXTREMITIES, BUT DOES NOT FOLLOW ANY COMMANDS; LETHARGIC/SEMI-ALERT) Skin: Normal Color, Warm/Dry, No Diaphoresis, Other (POOR TURGOR) Focused Exam Evaluation Lactate Level Laboratory Tests 04/09/17 08:38: Lactic Acid Level 2.95*H Lactic Acid Level Laboratory Tests Test 04/09/17 08:38 Lactic Acid Level 2.95 MMOL/L (0.50-2.00) *H Progress/Results/Core Measures Suspected Sepsis SIRS Temperature: Pulse: Respiratory Rate: Laboratory Tests 04/09/17 08:30: White Blood Count 15.4H Blood Pressure / Mean: Laboratory Tests 04/09/17 08:38: Lactic Acid Level 2.95*H Laboratory Tests 04/09/17 08:30: Creatinine 1.47H, INR Comment 1.1, Platelet Count 120L, Total Bilirubin 0.8 Results/Orders Lab Results Laboratory Tests Test 04/09/17 07:30 04/09/17 07:36 04/09/17 08:30 04/09/17 08:38 Range/Units Urine Color YELLOW Urine Clarity SLIGHTLY CLOUDY Urine pH 7 5-9 Urine Specific [place] 1.010 L 1.016-1.022 Urine Protein 3+ H NEGATIVE Urine Glucose (UA) NEGATIVE NEGATIVE Urine Ketones NEGATIVE NEGATIVE Urine Nitrite NEGATIVE NEGATIVE Urine Bilirubin NEGATIVE NEGATIVE Urine Urobilinogen NORMAL NORMAL MG/DL Urine Leukocyte Esterase 3+ H NEGATIVE Urine RBC (Auto) 5+ H NEGATIVE Urine RBC 2-5 H /HPF Urine WBC TNTC H /HPF Urine Squamous Epithelial Cells 2-5 /HPF Urine Crystals NONE /LPF Urine Bacteria LARGE H /HPF Urine Casts NONE /LPF Urine Mucus NEGATIVE /LPF Urine Culture Indicated YES Glucometer 75 70-110 MG/DL White Blood Count 15.4 H 4.3-11.0 10^3/uL Red Blood Count 4.87 4.35-5.85 10^6/uL Hemoglobin 14.7 13.3-17.7 G/DL Hematocrit 45 40-54 % Mean Corpuscular Volume 93 80-99 FL Mean Corpuscular Hemoglobin 30 25-34 PG Mean Corpuscular Hemoglobin Concent 33 32-36 G/DL Red Cell Distribution Width 13.3 10.0-14.5 % Platelet Count 120 L 130-400 10^3/uL Mean Platelet Volume 10.7 H 7.4-10.4 FL Neutrophils (%) (Auto) 71 42-75 % Lymphocytes (%) (Auto) 18 12-44 % Monocytes (%) (Auto) 10 0-12 % Eosinophils (%) (Auto) 1 0-10 % Basophils (%) (Auto) 0 0-10 % Neutrophils # (Auto) 10.9 H 1.8-7.8 X 10^3 Lymphocytes # (Auto) 2.8 1.0-4.0 X 10^3 Monocytes # (Auto) 1.5 H 0.0-1.0 X 10^3 Eosinophils # (Auto) 0.2 0.0-0.3 10^3/uL Basophils # (Auto) 0.0 0.0-0.1 10^3/uL Neutrophils % (Manual) 85 % Lymphocytes % (Manual) 9 % Monocytes % (Manual) 3 % Eosinophils % (Manual) 3 % Basophils % (Manual) 0 % Band Neutrophils 0 % Blood Morphology Comment NORMAL Prothrombin Time 14.2 12.2-14.7 SEC INR Comment 1.1 0.8-1.4 Activated Partial Thromboplast Time 30 24-35 SEC Sodium Level 139 135-145 MMOL/L Potassium Level 4.3 3.6-5.0 MMOL/L Chloride Level 104 98-107 MMOL/L Carbon Dioxide Level 21 21-32 MMOL/L Anion Gap 14 5-14 MMOL/L Blood Urea Nitrogen 25 H 7-18 MG/DL Creatinine 1.47 H 0.60-1.30 MG/DL Estimat Glomerular Filtration Rate 55 BUN/Creatinine Ratio 17 Glucose Level 309 H 70-105 MG/DL Calcium Level 9.2 8.5-10.1 MG/DL Magnesium Level 1.9 1.8-2.4 MG/DL Total Bilirubin 0.8 0.1-1.0 MG/DL Aspartate Amino Transf (AST/SGOT) 19 5-34 U/L Alanine Aminotransferase (ALT/SGPT) 14 0-55 U/L Alkaline Phosphatase 121 40-136 U/L Total Protein 7.2 6.4-8.2 GM/DL Albumin 3.5 3.2-4.5 GM/DL Amylase Level 84 25-125 U/L Lipase 42 8-78 U/L TSH [place] Testing 6.01 H 0.35-4.94 UIU/ML Lactic Acid Level 2.95 *H 0.50-2.00 MMOL/L Test 04/09/17 09:01 Range/Units Glucometer 365 H 70-110 MG/DL My Orders Orders - SILVA HENDERSON DO Saline Lock/Iv-Start (04/09/17 07:21) Ekg Tracing (04/09/17 07:21) O2 (04/09/17 07:21) Monitor-Rhythm Ecg Trace Only (04/09/17 07:21) Amylase (04/09/17 07:21) Cbc With Automated Diff (04/09/17 07:21) Comprehensive Metabolic Panel (04/09/17 07:21) Lipase (04/09/17 07:21) Magnesium (04/09/17 07:21) Protime With Inr (04/09/17:21) Partial Thromboplastin Time (04/09/17 07:21) Thyroid Analyzer (04/09/17 07:21) Troponin I (04/09/17 07:21) Ua Culture If Indicated (04/09/17 07:21) Influenza A And B Antigens (04/09/17 07:21) Chest 1 View, Ap/Pa Only (04/09/17 07:21) Saline Lock/Iv-Start (04/09/17 07:21) Accucheck Stat ONCE (04/09/17 07:21) D5 Ns 1000 Ml Iv Solution (Dextrose 5%/0 (04/09/17 07:21) Catheter(Urinary) Insert & Ass 03,15 (04/09/17 07:21) D50w (Emergency) Syringe (Dextrose 50% 5 (04/09/17 07:30) Ct Head Wo-R/O Stroke (04/09/17 07:24) Lactic Acid Analyzer (04/09/17 07:24) Blood Culture (04/09/17 07:24) Urine Culture (04/09/17 07:30) Manual Differential (04/09/17 08:30) Ceftriaxone Injection (Rocephin Injectio (04/09/17 09:15) Free T4 (Free Thyroxine) (04/09/17 08:30) Medications Given in ED Current Medications Medications Dose Ordered Sig/Ese Route Start Time Stop Time Status Last Admin Dose Admin Dextrose 50 ml ONCE ONCE IV 04/09/17 07:30 04/09/17 07:31 DC 04/09/17 07:42 50 ML Dextrose/Sodium Chloride 1,000 ml @ 0 mls/hr Q0M ONCE IV 04/09/17 07:21 04/09/17 07:24 DC 04/09/17 07:56 1,000 MLS/HR Vital Signs/I&O Vital Sign - Last 12Hours 04/09/17 04/09/17 04/09/17 07:20 07:20 08:53 Temp 97.7 Pulse 65 6 Resp 18 18 B/P (MAP) 175/93 (120) 183/106 (131) Pulse Ox 88 97 O2 Delivery Nasal Cannula Room Air Nasal Cannula O2 Flow Rate 2.00 2.00 Capillary Refill : Progress Note : Progress Note NO DETERIORATION IN PT'S CONDITION DURING ER STAY REPEAT ACCUCHECK 365 ECG Initial ECG Impression Time: 08:11 Initial ECG Rate: 65 Initial ECG Comparisson: Unchanged Comment 100% VENTRICULAR PACED Diagnostic Imaging Comments CT HEAD--NO ACUTE PROCESS, MODERATELY SEVERE ATROPHY AND CHRONIC MICROVASCULAR CHANGES--PER RADIOLOGIST REPORT @ 0826 CXR--STABLE MILD CARDIOMEGALY, NO VASCULAR CONGESTION, NO ACUTE PROCESS--PER RADIOLOGIST REPORT @ 0840 Reviewed: Reviewed by Me Departure Communication (Admissions) Progress Notes 899--ATTEMPTING TO CONTACT DR. DILLON. MESSAGE LEFT ON CELL 904--SPOKE WITH DR. VAZQUEZ, REGARDING IV ACCESS 909--SPOKE WITH DR. DILLON, ACCEPTS PT FOR ADMIT 914--DR. VAZQUEZ HERE 924--DR. DILLON HERE Impression Impression: Primary Impression: Altered mental status Additional Impressions: UTI (urinary tract infection) Dementia Sepsis Poor intravenous access Hypoglycemia MALFUNCTIONING SUPRAPUBIC CATHETER Dehydration Chronic renal failure SCROTAL EDEMA ( CHRONIC) WITH SKIN BREAKDOWN NIDDM Disposition: ADMITTED INPATIENT Condition: Stable/Unchanged Admissions Decision to Admit Reason: Admit from ER (General) Decision to Admit/Date: Apr 09, 2017 Time/Decision to Admit Time: 09:05 Departure-Patient Inst. Referrals: CALLIE MCKEON DO (PCP/Family) Primary Care Physician SILVA HENDERSON DO Apr 09, 2017 07:44
[2017-04-09 07:45] LABS: BILIRUBIN,URINE NEGATIVE (NEGATIVE); CLARITY,URINE SLIGHTLY CLOUDY; COLOR,URINE YELLOW; GLUCOSE, URINE (UA) NEGATIVE (NEGATIVE); KETONES,URINE NEGATIVE (NEGATIVE); LEUKOCYTE ESTERASE ,URINE 3+ (NEGATIVE); NITRITE,URINE NEGATIVE (NEGATIVE); PH,URINE 7 (5-9); PROTEIN,URINE 3+ (NEGATIVE); UROBILINOGEN,URINE NORMAL (NORMAL)
[2017-04-09 07:58] LABS: BACTERIA,URINE LARGE /HPF; WBC,URINE TNTC /HPF
--- NOTE | 2017-04-09 08:04 | Diagnostic Imaging Report ---
INDICATION: Unresponsive. COMPARISON STUDY: None. FINDINGS: Noncontrast CT scan the head demonstrates mhogscho-zh-xafsua atrophy and white matter changes. No focal areas of ischemia are identified. There is no mass effect midline shift or hemorrhage. The bone windows appear normal. IMPRESSION: There is [id number] atrophy and microvascular disease with no acute findings. Findings were called to the emergency room. Dictated by: Dictated on workstation # [id number]
--- NOTE | 2017-04-09 08:33 | Diagnostic Imaging Report ---
Clinical indication: Patient unresponsive. Exam: Portable chest x-ray upright view. Comparisons: Chest x-ray dated 03/14/2017. Findings: Of note, the lateral aspect of left costophrenic angle is not completely imaged. There is improved aeration compared to the prior study. Lungs are clear. There is no pleural effusion or pneumothorax. Pulmonary vasculature and mediastinal structures are unremarkable. Stable mild cardiomegaly. Again seen cardiac pacemaker overlying left chest with 2 leads projected over the heart. Bones show no acute process and are unremarkable for patient's age. Impression: 1: Stable mild cardiomegaly. There is no significant pulmonary vascular congestion. 2: Otherwise, there is no radiographic evidence of acute cardiopulmonary process. Dictated by: Dictated on workstation # [id number]
[2017-04-09 08:45] LABS: BASOPHILS % (AUTO) 0 % (0-10); EOSINOPHILS # (AUTO) 0.2 10^3/uL (0.0-0.3); EOSINOPHILS % (AUTO) 1 % (0-10); HEMATOCRIT 45 % (40-54); HEMOGLOBIN 14.7 G/DL (13.3-17.7); LYMPHOCYTES # (AUTO) 2.8 X 10^3 (1.0-4.0); LYMPHOCYTES % (AUTO) 18 % (12-44); MEAN CORPUSCULAR HEMOGLOBIN 30 PG (25-34); MEAN CORPUSCULAR HGB CONC 33 G/DL (32-36); MEAN CORPUSCULAR VOLUME 93 FL (80-99); MEAN PLATELET VOLUME 10.7 FL (7.4-10.4); MONOCYTES # (AUTO) 1.5 X 10^3 (0.0-1.0); MONOCYTES % (AUTO) 10 % (0-12); NEUTROPHILS # (AUTO) 10.9 X 10^3 (1.8-7.8); NEUTROPHILS % (AUTO) 71 % (42-75); PLATELET COUNT 120 10^3/uL (130-400); RED BLOOD COUNT 4.87 10^6/uL (4.35-5.85); RED CELL DISTRIBUTION WIDTH 13.3 % (10.0-14.5); WHITE BLOOD COUNT 15.4 10^3/uL (4.3-11.0)
[2017-04-09 08:53] VITALS: BP 183/106
[2017-04-09 09:00] LABS: INR 1.1 (0.8-1.4); PROTHROMBIN TIME PATIENT 14.2 SEC (12.2-14.7)
[2017-04-09 09:06] LABS: ALANINE AMINOTRANSFERASE 14 U/L (0-55); ALBUMIN 3.5 GM/DL (3.2-4.5); ALKALINE PHOSPHATASE 121 U/L (40-136); AMYLASE 84 U/L (25-125); BILIRUBIN,TOTAL 0.8 MG/DL (0.1-1.0); BUN/CREATININE RATIO 17; CALCIUM 9.2 MG/DL (8.5-10.1); CARBON DIOXIDE 21 MMOL/L (21-32); CHLORIDE 104 MMOL/L (98-107); CREATININE SERUM 1.47 MG/DL (0.60-1.30); GFR ESTIMATED 55; GLUCOSE 309 MG/DL (70-105); LIPASE 42 U/L (8-78); MAGNESIUM 1.9 MG/DL (1.8-2.4); POTASSIUM 4.3 MMOL/L (3.6-5.0); SODIUM 139 MMOL/L (135-145); TOTAL PROTEIN 7.2 GM/DL (6.4-8.2)
[2017-04-09] MEDS ORDERED: cefTRIAXone INJECTION 1,000 MG in NS (IVPB) 50 ML IV ONE (09:15)
[2017-04-09 09:16] LABS: BAND NEUTROPHILS 0 %; BASOPHILS % (MANUAL) 0 %; EOSINOPHILS % (MANUAL) 3 %; LYMPHOCYTES % (MANUAL) 9 %; MONOCYTES % (MANUAL) 3 %; NEUTROPHILS % (MANUAL) 85 %; RBC MORPH NORMAL
--- OUTSIDE RECORDS SUMMARY | 2017-04-09 09:22 | XMS REPORT | Clinical Summary ---
Author Author [facility] Organization [facility] Address Unknown Phone Unavailable Care Team Providers Care Powder Loader Name Role Phone Self, Referral PCP Unavailable Roderick Aparicio MD Unavailable Source Comments Some departments are not documenting in the electronic medical record. If you do not see the information that you expected, contact Release of Information in the Health Information Management department at [phone] for further assistance in locating additional records.[facility] Allergies Not on File Current Medications Not [...]
[2017-04-09 09:25] LABS: TSH (THYROID ANALYZER) 6.01 UIU/ML (0.35-4.94)
--- OUTSIDE RECORDS SUMMARY | 2017-04-09 09:33 | XMS REPORT | Continuity of Care Document ---
Author Author [facility] Organization [facility] Address Unknown Phone Unavailable Allergies Active Description Code Type Severity Reaction Onset Reported/Identified Relationship to Patient Clinical Status Yes Penicillins [id number] Drug Allergy Unknown N/A 04/30/2014 Yes Penicillins [id number] Drug Allergy Unknown Pt has received 03/17/2017 Medications There is no data. 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 04/30/2014 Ot 453.41 [...] INFARCT 05/03/2014 Ot 414.01 CORONARY ATHEROSCLEROSIS OF [place] CORON 05/03/2014 Ot 414.8 CHR ISCHEMIC HRT DIS NEC 05/03/2014 Ot 424.0 MITRAL VALVE DISORDER 05/03/2014 Ot 428.0 CONGESTIVE HEART FAILURE NOS 05/03/2014 Ot 433.10 CAROTID ARTERY OCCLUSION W O CEREBRAL IN 05/03/2014 Ot 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 05/03/2014 Ot 453.41 [...] HEART FAILURE NOS 05/05/2014 Ot 440.20 ATHEROSCLEROSIS [place] ARTERIES EXTREMIT 05/05/2014 Ot 440.4 CHRONIC TOTAL [...] 09/10/2014 Ot 786.09 09/10/2014 JEAN PAUL ROD[facility]UEZ F[facility] Ot 414.00 09/10/2014 JEAN PAUL RODRIGUEZ FAC, ALI FACP CCDS Ot 414.8 09/10/2014 JEAN PAUL RODRIGUEZ FACC, ALI FACP CCDS Ot 426.0 09/10/2014 JEAN PAUL RODRIGUEZ FAC, ALI FACP CCDS Ot 496 02/09/2015 MCKEON [...] DO, CALLIE Ot N39.0 02/15/2015 MCKEON DO, CALLEI Ot R26.89 02/15/2015 MCKEON DO, CALLIE Ot [...] DOI Ot K85.1 BILIARY ACUTE PANCREATITIS 02/18/2015 CALLIE MCKEON DO Ot N31.9 NEUROMUSCULAR DYSFUNCTION OF BLADDER, UN 02/18/2015 JOSESITO MCKEON DOI Ot N39.0 URINARY TRACT INFECTION, SITE NOT SPECIF 02/18/2015 CALLIE MCKEON DO Ot R26.89 OTHER ABNORMALITIES OF GAIT AND MOBILITY 02/18/2015 CALLIE MCKEON DO Ot Z45.010 ENCNTR FOR CHECKING AND TEST OF CARD PAC 02/18/2015 CALLIE MCKEON DO Ot Z87.891 PERSONAL HISTORY OF NICOTINE DEPENDENCE 02/18/2015 CALLIE MCKEON DO Ot Z93.59 OTHER CYSTOSTOMY STATUS 02/18/2015 CALLIE MCKEON DO Ot Z95.0 PRESENCE OF CARDIAC PACEMAKER 03/11/2015 ABE YADAV MD E Ot A04.7 ENTEROCOLITIS DUE TO CLOSTRIDIUM DIFFICI 03/11/2015 ABE YADAV MD E Ot D64.9 ANEMIA, UNSPECIFIED 03/11/2015 VICENTA RODRIGUEZ ABE E Ot E11.9 TYPE 2 DIABETES MELLITUS WITHOUT COMPLIC 03/11/2015 ABE YADAV MD E Ot E78.0 PURE HYPERCHOLESTEROLEMIA 03/11/2015 ABE YADAV MD E Ot E78.5 HYPERLIPIDEMIA, UNSPECIFIED 03/11/2015 VICENTA RODRIGUEZ, ABE E Ot F03.90 UNSPECIFIED DEMENTIA WITHOUT BEHAVIORAL 03/11/2015 ABE YADAV MD E Ot F32.9 MAJOR DEPRESSIVE DISORDER, SINGLE EPISOD 03/11/2015 ERIN YADAV MDIC E Ot H91.10 PRESBYCUSIS, UNSPECIFIED EAR 03/11/2015 VICENTA RODRIGUEZ ABE E Ot I10 ESSENTIAL (PRIMARY) HYPERTENSION 03/11/2015 ABE YADAV MD E Ot I25.10 ATHSCL HEART DISEASE OF [place] CORONARY 03/11/2015 ABE YADAV MD E Ot 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 03/11/2015 ABE YADAV MD E Ot I73.9 PERIPHERAL VASCULAR DISEASE, UNSPECIFIED 03/11/2015 ABE YADAV MD E Ot K59.00 CONSTIPATION, UNSPECIFIED 03/11/2015 ABE YADAV MD E Ot N31.9 NEUROMUSCULAR DYSFUNCTION OF [place], UN 03/11/2015 ABE YADAV MD E Ot Z48.815 ENCNTR FOR SURGICAL AFTCR FOLLOWING SURG 03/11/2015 ABE YADAV MD Ot Z87.891 PERSONAL HISTORY OF NICOTINE DEPENDENCE 03/11/2015 ABE YADAV MD Ot Z89.421 ACQUIRED ABSENCE OF OTHER RIGHT TOE(S) 03/11/2015 ABE YADAV MD Ot Z95.0 PRESENCE OF CARDIAC PACEMAKER 05/09/2015 SARY BERNAL DO Ot N30.91 CYSTITIS, UNSPECIFIED WITH HEMATURIA 05/09/2015 SARY BERNAL DO Ot N40.1 ENLARGED PROSTATE WITH LOWER URINARY TRA 05/09/2015 SARY BERNAL DO Ot R33.8 OTHER RETENTION OF URINE 05/09/2015 SARY BERNAL DO Ot Z79.02 CHURCH ORGANIST (CURRENT) USE OF ANTITHROMBOTI 05/09/2015 SARY BERNAL DO Ot Z79.82 CHURCH ORGANIST (CURRENT) USE OF ASPIRIN 05/09/2015 SARY BERNAL DO, Ot Z79.899 OTHER CHURCH ORGANIST (CURRENT) DRUG THERAPY 05/24/2015 JOSESITO MCKEON DOI Ot E11.9 05/24/2015 LINDA CANAS CALLIE Ot E78.0 05/24/2015 LINDA CANAS CALLIE Ot E78.1 05/24/2015 JOSESITO MCKEON DOI Ot Z00.00 06/01/2015 Ot 397.0 06/01/2015 Ot 414.00 06/01/2015 Ot 414.8 06/01/2015 Ot 424.0 06/01/2015 Ot 782.3 06/01/2015 Ot 786.09 06/01/2015 JEAN PAUL RODRIGUEZ FAC, ALI FACP CCDS Ot 414.00 06/01/2015 JEAN PAUL RODRIGUEZ FAC, ALI FACP CCDS Ot 414.8 06/01/2015 JEAN PAUL RODRIGUEZ FAC, ALI FACP CCDS Ot 426.0 06/01/2015 JEAN PAUL RODRIGUEZ FAC, ALI FACP CCDS Ot 496 06/01/2015 LINDA CANAS CALLIE Ot E11.9 06/01/2015 LINDA CANAS CALLIE Ot E78.0 06/01/2015 LINDA CANAS CALLIE Ot E78.1 06/01/2015 JOSESITO MCKEON DOI Ot Z00.00 06/01/2015 LINDA CANAS CALLIE Ot E11.9 06/01/2015 MCKEON DO, CALLIE Ot E78.0 06/01/2015 MCKEON DO, CALLIE Ot E78.1 06/01/2015 MCKEON DO, CALLIE Ot Z00.00 06/23/2015 RACHELLE RODRIGUEZ, RUDOLPH Tran Ot R31.9 HEMATURIA, UNSPECIFIED 06/24/2015 BAIMA, AL L MANAGER EDUCATIONAL Ot E78.5 HYPERLIPIDEMIA, UNSPECIFIED 06/24/2015 BAIMA, AL L MANAGER EDUCATIONAL Ot I25.10 ATHSCL HEART DISEASE OF [place] CORONARY 06/24/2015 BAIMA, AL L MANAGER EDUCATIONAL Ot 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 06/24/2015 BAIMA, AL L MANAGER EDUCATIONAL Ot I77.9 DISORDER OF ARTERIES AND ARTERIOLES, UNS 06/24/2015 BAIMA, AL L MANAGER EDUCATIONAL Ot Z95.0 PRESENCE OF CARDIAC PACEMAKER 06/24/2015 BAIMA, AL L MANAGER EDUCATIONAL Ot E78.5 HYPERLIPIDEMIA, UNSPECIFIED 06/24/2015 BAIMA, AL L MANAGER EDUCATIONAL Ot I25.10 ATHSCL HEART DISEASE OF [place] CORONARY 06/24/2015 BAIMA, AL L MANAGER EDUCATIONAL Ot 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 06/24/2015 BAIMA, AL L MANAGER EDUCATIONAL Ot I77.9 DISORDER OF ARTERIES AND ARTERIOLES, UNS 06/24/2015 BAIMA, AL L MANAGER EDUCATIONAL Ot Z95.0 PRESENCE OF CARDIAC PACEMAKER 07/12/2015 RUDOLPH BUSH MD Ot R31.9 HEMATURIA, UNSPECIFIED 07/13/2015 BAIMA, AL L MANAGER EDUCATIONAL Ot E78.5 HYPERLIPIDEMIA, UNSPECIFIED 07/13/2015 BAIMA, AL L MANAGER EDUCATIONAL Ot I25.10 ATHSCL HEART DISEASE OF [place] CORONARY 07/13/2015 BAIMA, AL L MANAGER EDUCATIONAL Ot 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 07/13/2015 BAIMA, AL L MANAGER EDUCATIONAL Ot I77.9 DISORDER OF ARTERIES AND ARTERIOLES, UNS 07/13/2015 BAIMA, AL L MANAGER EDUCATIONAL Ot Z95.0 PRESENCE OF CARDIAC PACEMAKER 08/03/2015 BAIMA, AL L MANAGER EDUCATIONAL Ot E78.5 HYPERLIPIDEMIA, UNSPECIFIED 08/03/2015 BAIMA, AL L MANAGER EDUCATIONAL Ot I25.10 ATHSCL HEART DISEASE OF [place] CORONARY 08/03/2015 BAIMA, AL L MANAGER EDUCATIONAL Ot 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 08/03/2015 AL TURNER MANAGER EDUCATIONAL Ot I77.9 DISORDER OF ARTERIES AND ARTERIOLES, UNS 08/03/2015 AL TURNER MANAGER EDUCATIONAL Ot Z95.0 PRESENCE OF CARDIAC PACEMAKER 08/09/2015 [...] FOR GENERAL ADULT MEDICAL EXAM W/ 08/09/2015 MCKEON DO, CALLIE Ot E11.9 TYPE 2 DIABETES MELLITUS WITHOUT COMPLIC 08/09/2015 MCKEON DO, CALLIE Ot E78.0 PURE HYPERCHOLESTEROLEMIA 08/09/2015 MCKEON DO, CALLIE Ot 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 08/09/2015 MCKEON DO, CALLIE Ot Z00.00 ENCNTR FOR GENERAL ADULT MEDICAL EXAM W/ 08/09/2015 RACHELLE RODRIGUEZ, RUDOLPH Tran Ot R31.9 HEMATURIA, UNSPECIFIED 08/09/2015 VEGAAL JOHNSON MANAGER EDUCATIONAL Ot E78.5 HYPERLIPIDEMIA, UNSPECIFIED 08/09/2015 VEGAAL JOHNSON MANAGER EDUCATIONAL Ot I25.10 ATHSCL HEART DISEASE OF [place] CORONARY 08/09/2015 YUEAL MANAGER EDUCATIONAL Ot 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 08/09/2015 YUEAL MANAGER EDUCATIONAL Ot I77.9 DISORDER OF ARTERIES AND ARTERIOLES, UNS 08/09/2015 YUEAL MANAGER EDUCATIONAL Ot Z95.0 PRESENCE OF CARDIAC PACEMAKER 08/10/2015 MATTHEW RODRIGUEZ, FERNANDO T Ot N39.0 URINARY TRACT INFECTION, SITE NOT SPECIF 08/10/2015 MATTHEW RODRIGUEZ, FERNANDO T Ot R31.0 GROSS HEMATURIA 08/10/2015 MATTHEW RODRIGUEZ, FERNANDO T Ot Z95.0 PRESENCE OF CARDIAC PACEMAKER 10/13/2015 LINDA CANAS CALLIE Ot E11.9 TYPE 2 DIABETES MELLITUS WITHOUT COMPLIC 10/13/2015 LINDA CANAS CALLIE Ot E78.0 PURE HYPERCHOLESTEROLEMIA 10/13/2015 LINDA CANAS CALLIE Ot Z00.00 ENCNTR FOR GENERAL ADULT MEDICAL EXAM W/ 11/28/2015 BURTON MODI APRN Ot E11.9 TYPE 2 DIABETES MELLITUS WITHOUT COMPLIC 11/28/2015 BURTON MODI APRN Ot F03.90 UNSPECIFIED DEMENTIA WITHOUT BEHAVIORAL 11/28/2015 BURTON MODI APRN Ot I10 ESSENTIAL (PRIMARY) HYPERTENSION 11/28/2015 BURTON MODI APRN Ot L03.115 CELLULITIS OF RIGHT LOWER LIMB 11/28/2015 BURTON MODI APRN Ot S80.821A BLISTER (NONTHERMAL), RIGHT LOWER LEG, I 11/28/2015 BURTON MODI APRN Ot Z79.82 SKILLED NURSING (CURRENT) USE OF ASPIRIN 11/28/2015 BURTON MODI APRN Ot Z79.899 OTHER SKILLED NURSING (CURRENT) DRUG THERAPY 11/28/2015 BURTON MODI APRN Ot Z95.0 PRESENCE OF CARDIAC PACEMAKER 11/28/2015 BURTON MODI APRN Ot Z95.5 PRESENCE OF CORONARY ANGIOPLASTY IMPLANT 11/30/2015 BURTON MODI APRN Ot E11.9 TYPE 2 DIABETES MELLITUS WITHOUT COMPLIC 11/30/2015 BURTON MODI APRN Ot F03.90 UNSPECIFIED DEMENTIA WITHOUT BEHAVIORAL 11/30/2015 BURTON MODI [employer] INSTRUCTOR Ot I10 ESSENTIAL (PRIMARY) HYPERTENSION 11/30/2015 BURTON MODI [employer] INSTRUCTOR Ot L03.115 CELLULITIS OF RIGHT LOWER LIMB 11/30/2015 BURTON MODI [employer] INSTRUCTOR Ot S80.821A BLISTER (NONTHERMAL), RIGHT LOWER LEG, I 11/30/2015 BURTON MODI APRN Ot Z79.82 CHURCH ORGANIST (CURRENT) USE OF ASPIRIN 11/30/2015 BURTON MODI APRN Ot Z79.899 OTHER CHURCH ORGANIST (CURRENT) DRUG THERAPY 11/30/2015 BURTON MODI APRN Ot Z95.0 PRESENCE OF CARDIAC PACEMAKER 11/30/2015 [...] 12/23/2015 LILIANA ALCOCER MD Ot 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 12/23/2015 LILIANA ALCOCER MD Ot I72.4 ANEURYSM OF ARTERY OF LOWER EXTREMITY 12/23/2015 LILIANA ALCOCER MD Ot I87.311 CHRONIC VENOUS HYPERTENSION W ULCER OF R 12/23/2015 LILIANA ALCOCER MD, Ot L97.211 NON-PRS CHRONIC ULCER OF RIGHT CALF LIMI 12/23/2015 LILIANA ALCOCER MD, Ot T65.222A TOXIC EFFECT OF TOBACCO CIGARETTES, SELF 01/03/2016 LILIANA ALCOCER MD, Ot F17.210 NICOTINE DEPENDENCE, CIGARETTES, UNCOMPL 01/03/2016 LILIANA ALCOCER MD Ot I72.4 ANEURYSM OF ARTERY OF LOWER EXTREMITY 01/03/2016 LILIANA ALCOCER MD Ot I77.1 STRICTURE OF ARTERY 01/03/2016 LILIANA [...] LEFT 05/15/2016 BURTON MODI APRN Ot Z79.82 CHURCH ORGANIST (CURRENT) USE OF ASPIRIN 05/15/2016 BURTON MODI APRN Ot Z79.84 CHURCH ORGANIST (CURRENT) USE OF ORAL HYPOGLYC 05/15/2016 BURTON MODI APRN Ot Z79.899 OTHER CHURCH ORGANIST (CURRENT) DRUG THERAPY 05/15/2016 BURTON MODI APRN Ot Z95.0 PRESENCE OF CARDIAC PACEMAKER 05/23/2016 BURTON MODI APRN Ot E11.9 TYPE 2 DIABETES MELLITUS WITHOUT COMPLIC 05/23/2016 MODI, PETER J BEAUTY SCHOOL INSTRUCTOR Ot I10 ESSENTIAL (PRIMARY) HYPERTENSION 05/23/2016 BURTON MODI [employer] INSTRUCTOR Ot L03.116 CELLULITIS OF LEFT LOWER LIMB 05/23/2016 BURTON OMDI BEAUT[employer]CHOOL INSTRUCTOR Ot R22.42 LOCALIZED SWELLING, MASS AND LUMP, LEFT 05/23/2016 BURTON MODI [employer] INSTRUCTOR Ot Z79.82 CHURCH ORGANIST (CURRENT) USE OF ASPIRIN 05/23/2016 BURTON MODI [employer] INSTRUCTOR Ot Z79.84 CHURCH ORGANIST (CURRENT) USE OF ORAL HYPOGLYC 05/23/2016 BURTON MODI [employer] INSTRUCTOR Ot Z79.899 OTHER SKILLED NURSING (CURRENT) DRUG THERAPY 05/23/2016 BURTON MODI BE[employer] INSTRUCTOR Ot Z95.0 PRESENCE OF CARDIAC PACEMAKER 05/31/2016 CALLIE MCKEON DO Ot E11.65 TYPE 2 DIABETES MELLITUS WITH HYPERGLYCE 05/31/2016 CALLIE MCKEON DO Ot E78.00 PURE HYPERCHOLESTEROLEMIA, UNSPECIFIED 05/31/2016 CALLIE MCKEON DO Ot 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 05/31/2016 CALLIE MCKEON [...] MCKEON DOI Ot E78.0 PURE HYPERCHOLESTEROLEMIA 06/19/2016 CALLIE MCKEON DO Ot 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 06/19/2016 CALLIE MCKEON DO Ot Z00.00 ENCNTR FOR GENERAL ADULT MEDICAL EXAM W06/19/2016 CALLIE MCKEON DO Ot E11.9 TYPE 2 DIABETES MELLITUS WITHOUT COMPLIC 06/19/2016 JOSESITO MCKEON DOI Ot E78.0 PURE HYPERCHOLESTEROLEMIA 06/19/2016 JOSESITO MCKEON DOI Ot 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 06/19/2016 MCKEON DO, CALLIE Ot Z00.00 ENCNTR FOR GENERAL ADULT MEDICAL EXAM W/ 06/19/2016 RACHELLE RODRIGUEZ, RUDOLPH Tran Ot R31.9 HEMATURIA, UNSPECIFIED 06/19/2016 AL TURNER MANAGER EDUCATIONAL Ot E78.5 HYPERLIPIDEMIA, UNSPECIFIED 06/19/2016 AL TURNER MANAGER EDUCATIONAL Ot I25.10 ATHSCL HEART DISEASE OF [place] CORONARY 06/19/2016 AL TURNER MANAGER EDUCATIONAL Ot 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 06/19/2016 AL TURNER MANAGER EDUCATIONAL Ot I77.9 DISORDER OF ARTERIES AND ARTERIOLES, UNS 06/19/2016 AL TURNER MANAGER EDUCATIONAL Ot Z95.0 PRESENCE OF CARDIAC PACEMAKER 06/19/2016 LINDA CANAS CALLIE Ot E11.9 TYPE 2 [...] CHRONIC ULCER OF RIGHT [place]I 06/19/2016 CALLIE MCKEON DO Ot E11.65 TYPE 2 DIABETES MELLITUS WITH HYPERGLYCE 06/19/2016 LINDA CANAS CALLIE Ot E78.00 PURE HYPERCHOLESTEROLEMIA, UNSPECIFIED 06/19/2016 JOSESITO MCKEON DOI Ot 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 06/19/2016 CALLIE MCKEON DO Ot N39.0 URINARY TRACT INFECTION, SITE NOT SPECIF 06/19/2016 MATTHEW RODRIGUEZ, FERNANDO Arenas Ot E11.9 TYPE 2 DIABETES MELLITUS WITHOUT COMPLIC 06/19/2016 MATTHEW RODRIGUEZ, FERNANDO Arenas Ot F03.90 UNSPECIFIED DEMENTIA WITHOUT BEHAVIORAL 06/19/2016 FERNANDO CASTRO MD Ot I10 ESSENTIAL (PRIMARY) HYPERTENSION 06/19/2016 FERNANDO CASTRO MD Ot N32.3 DIVERTICULUM OF BLADDER 06/19/2016 FERNANDO CASTRO MD Ot T83.018A BREAKDOWN (MECHANICAL) OF OTHER URINARY 06/19/2016 FERNANDO CASTRO MD Ot Z79.82 SKILLED NURSING (CURRENT) USE OF ASPIRIN 06/19/2016 FERNANDO CASTRO MD T Ot Z79.84 CHURCH ORGANIST (CURRENT) USE OF ORAL HYPOGLYC 06/19/2016 FERNANDO CASTRO MD T Ot Z79.899 OTHER CHURCH ORGANIST (CURRENT) DRUG THERAPY 06/19/2016 FERNANDO CASTRO MD Ot Z95.0 PRESENCE OF CARDIAC PACEMAKER 06/21/2016 FERNANDO CASTRO MD Ot E11.9 TYPE 2 DIABETES MELLITUS WITHOUT COMPLIC 06/21/2016 FERNANDO CASTRO MD Ot F03.90 UNSPECIFIED DEMENTIA WITHOUT BEHAVIORAL 06/21/2016 FERNANDO CASTRO MD T Ot I10 ESSENTIAL (PRIMARY) HYPERTENSION 06/21/2016 FERNANDO CASTRO MD Ot N32.3 DIVERTICULUM OF BLADDER 06/21/2016 FERNANDO CASTRO MD Ot T83.018A BREAKDOWN (MECHANICAL) OF OTHER URINARY 06/21/2016 FERNANDO CASTRO MD Ot Z79.82 SKILLED NURSING (CURRENT) USE OF ASPIRIN 06/21/2016 FERNANDO CASTRO MD Ot Z79.84 SKILLED NURSING (CURRENT) USE OF ORAL HYPOGLYC 06/21/2016 FERNANDO CASTRO MD Ot Z79.899 OTHER CHURCH ORGANIST (CURRENT) DRUG THERAPY 06/21/2016 FERNANDO CASTRO MD Ot Z95.0 PRESENCE OF CARDIAC PACEMAKER 06/25/2016 FERNANDO CASTRO MD Ot E11.9 TYPE 2 DIABETES MELLITUS WITHOUT COMPLIC 06/25/2016 FERNANDO CASTRO MD Ot F03.90 UNSPECIFIED DEMENTIA WITHOUT BEHAVIORAL 06/25/2016 FERNANDO CASTRO MD Ot I10 ESSENTIAL (PRIMARY) HYPERTENSION 06/25/2016 FERNANDO CASTRO MD Ot N32.3 DIVERTICULUM OF BLADDER 06/25/2016 FERNANDO CASTRO MD Ot T83.018A BREAKDOWN (MECHANICAL) OF OTHER URINARY 06/25/2016 FERNANDO CASTRO MD Ot Z79.82 SKILLED NURSING (CURRENT) USE OF ASPIRIN 06/25/2016 FERNANDO CASTRO MD Ot Z79.84 SKILLED NURSING (CURRENT) USE OF ORAL HYPOGLYC 06/25/2016 FERNANDO CASTRO MD Ot Z79.899 OTHER SKILLED NURSING (CURRENT) DRUG THERAPY 06/25/2016 FERNANDO CASTRO MD Ot Z95.0 PRESENCE OF CARDIAC PACEMAKER 08/08/2016 SHIVA DELGADO BEAUT[employer] SCHOOL INSTRUCTOR Ot I87.333 CHRONIC VENOUS HTN W ULCER AND INFLAM OF 08/08/2016 SHIVA DELGADO BEAUTY SCHOOL INSTRUCTOR Ot L97.212 NON-PRESSURE CHRONIC ULCER OF RIGHT CALF 08/08/2016 SHIVA DELGADO BEAUT[employer] SCHOOL INSTRUCTOR Ot L97.221 NON-PRS CHRONIC ULCER OF LEFT [...] URINARY 08/09/2016 FERNANDO CASTRO MD Ot Z79.82 CHURCH ORGANIST (CURRENT) USE OF ASPIRIN 08/09/2016 FERNANDO CASTRO MD Ot Z79.84 CHURCH ORGANIST (CURRENT) USE OF ORAL HYPOGLYC 08/09/2016 FERNANDO CASTRO MD Ot Z79.899 OTHER SKILLED NURSING (CURRENT) DRUG THERAPY 08/09/2016 FERNANDO CASTRO MD Ot Z95.0 PRESENCE OF CARDIAC PACEMAKER 09/24/2016 SHIVA DELGADO BEAUT[employer] SCHOOL INSTRUCTOR Ot I87.333 CHRONIC VENOUS HTN W ULCER AND INFLAM OF 09/24/2016 SHIVA DELGADO BEAUT[employer] SCHOOL INSTRUCTOR Ot L97.212 NON-PRESSURE CHRONIC ULCER OF RIGHT CALF 09/24/2016 DANNY SHIVA R BEAUTY SCHOOL INSTRUCTOR Ot L97.221 NON-PRS CHRONIC ULCER OF LEFT CALF LIMIT 10/03/2016 JEAN PAUL RODRIGUEZ FACC, ARI FACP CCDS Ot 414.00 CORON ATHEROSCLER NOS TYPE VESSEL, NATIV 10/03/2016 JEAN PAUL RODRIGUEZ FACC, ALI FACP CCDS Ot 414.8 CHR ISCHEMIC HRT DIS NEC 10/03/2016 JEAN PAUL RODRIGUEZ FACC, ARI FACP CCDS Ot 426.0 ATRIOVENT BLOCK COMPLETE 10/03/2016 JEAN PAUL RODRIGUEZ FACC, ALI FACP CCDS Ot 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 10/03/2016 LINDA CANAS CALLIE Ot E11.9 TYPE 2 DIABETES MELLITUS WITHOUT COMPLIC 10/03/2016 LINDA CANAS CALLIE Ot E78.0 PURE HYPERCHOLESTEROLEMIA 10/03/2016 LINDA DO CALLIE Ot 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 10/03/2016 LINDA CANAS CALLIE Ot Z00.00 ENCNTR FOR GENERAL ADULT MEDICAL EXAM W10/03/2016 CALLIE MCKEON DO Ot E11.9 TYPE 2 DIABETES MELLITUS WITHOUT COMPLIC 10/03/2016 LINDA CANAS CALLIE Ot E78.0 PURE HYPERCHOLESTEROLEMIA 10/03/2016 LINDA DO CALLIE Ot 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 10/03/2016 LINDA CANAS CALLIE Ot Z00.00 ENCNTR FOR GENERAL ADULT MEDICAL EXAM W10/03/2016 RACHELLE RODRIGUEZ, RUDOLPH Tran Ot R31.9 HEMATURIA, UNSPECIFIED 10/03/2016 AL TURNER MANAGER EDUCATIONAL Ot E78.5 HYPERLIPIDEMIA, UNSPECIFIED 10/03/2016 AL TURNER MANAGER EDUCATIONAL Ot I25.10 ATHSCL HEART DISEASE OF [place] CORONARY 10/03/2016 AL TURNER MANAGER EDUCATIONAL Ot 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 10/03/2016 AL TURNER MANAGER EDUCATIONAL Ot I77.9 DISORDER OF ARTERIES AND ARTERIOLES, UNS 10/03/2016 AL TURNER MANAGER EDUCATIONAL Ot Z95.0 PRESENCE OF CARDIAC PACEMAKER 10/03/2016 LINDA CANAS CALLIE Ot E11.9 TYPE 2 DIABETES MELLITUS WITHOUT COMPLIC 10/03/2016 LINDA DO CALLIE Ot E78.0 PURE HYPERCHOLESTEROLEMIA 10/03/2016 LINDA CANAS CALLIE Ot Z00.00 ENCNTR FOR GENERAL ADULT MEDICAL EXAM W/ 10/03/2016 LILIANA ALCOCER MD Ot F17.210 NICOTINE DEPENDENCE, CIGARETTES, UNCOMPL 10/03/2016 LILIANA ALCOCER MD Ot I72.4 ANEURYSM OF ARTERY OF LOWER EXTREMITY 10/03/2016 LILIANA ALCOCER MD Ot I77.1 STRICTURE OF ARTERY 10/03/2016 LILIANA ALCOCER MD Ot I87.311 CHRONIC VENOUS HYPERTENSION W ULCER OF R 10/03/2016 LILIANA ALCOCER MD Ot L97.211 NON-PRS CHRONIC ULCER OF RIGHT CALF LIMI 10/03/2016 LINDA DO CALLIE Ot E11.65 TYPE 2 DIABETES MELLITUS WITH HYPERGLYCE 10/03/2016 LINDA DO CALLIE Ot E78.00 PURE HYPERCHOLESTEROLEMIA, UNSPECIFIED 10/03/2016 LINDA DO CALLIE Ot 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 10/03/2016 LINDA [...] CANAS CALLIE Ot 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 01/15/2017 LINDA CANAS CALLIE Ot D64.9 ANEMIA, UNSPECIFIED 01/15/2017 LINDA CANAS [...] ACUTE ON CHRONIC SYSTOLIC (CONGESTIVE) H 01/15/2017 JOSESITO MCKEON DOI Ot 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 01/15/2017 JOSESITO MCKEON DOI Ot I73.9 PERIPHERAL VASCULAR DISEASE, UNSPECIFIED 01/15/2017 CALLIE MCKEON DO Ot J44.9 CHRONIC OBSTRUCTIVE PULMONARY DISEASE, U 01/15/2017 CALLIE MCKEON DO Ot L97.219 NON-PRESSURE CHRONIC ULCER OF RIGHT CALF 01/15/2017 JOSESITO MCKEON DOI Ot M19.90 UNSPECIFIED OSTEOARTHRITIS, UNSPECIFIED 01/15/2017 JOSESITO MCKEON DOI Ot N17.9 ACUTE KIDNEY FAILURE, UNSPECIFIED 01/15/2017 JOSESITO MCKEON DOI Ot N18.3 CHRONIC KIDNEY DISEASE, STAGE 3 (MODERAT 01/15/2017 JOSESITO MCKEON DOI Ot N39.0 URINARY TRACT INFECTION, SITE NOT SPECIF 01/15/2017 CALLIE MCKEON DO Ot Z87.891 PERSONAL HISTORY OF NICOTINE DEPENDENCE 01/15/2017 JOSESITO MCKEON DOI Ot Z95.0 PRESENCE OF CARDIAC PACEMAKER 01/16/2017 LILIANA ALCOCER MD Ot E11.622 TYPE 2 DIABETES MELLITUS WITH OTHER SKIN 01/16/2017 LILIANA ALCOCER MD, Ot F03.90 UNSPECIFIED DEMENTIA WITHOUT BEHAVIORAL 01/16/2017 LILIANA ALCOCER MD, Ot 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 01/16/2017 [...] 01/17/2017 LILIANA ALCOCER MD, Ot 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 01/17/2017 LILIANA ALCOCER MD, Ot I87.331 CHRONIC VENOUS HTN W ULCER AND INFLAMMAT 01/17/2017 CARLYN MD, LILIANA G Ot I89.0 LYMPHEDEMA, NOT ELSEWHERE CLASSIFIED 01/17/2017 LILIANA ALCOCER MD Ot L97.211 NON-PRS CHRONIC ULCER OF RIGHT CALF LIMI 01/28/2017 LILIANA ALCOCER MD, Ot E11.622 TYPE 2 DIABETES MELLITUS WITH OTHER SKIN 01/28/2017 LILIANA ALCOCER MD Ot F03.90 UNSPECIFIED DEMENTIA WITHOUT BEHAVIORAL 01/28/2017 LILIANA ALCOCER MD Ot 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 01/28/2017 LILIANA ALCOCER MD Ot I87.331 CHRONIC VENOUS HTN W ULCER AND INFLAMMAT 01/28/2017 LILIANA ALCOCER MD, Ot I89.0 LYMPHEDEMA, NOT ELSEWHERE CLASSIFIED 01/28/2017 LILIANA ALCOCER MD, Ot L97.211 NON-PRS CHRONIC ULCER OF RIGHT CALF LIMI 01/28/2017 MCKEONANNE MARIE CANAS CALLIE Ot E11.65 TYPE 2 DIABETES MELLITUS WITH HYPERGLYCE 01/28/2017 LINDA CANAS CALLIE Ot E78.00 PURE HYPERCHOLESTEROLEMIA, UNSPECIFIED 01/28/2017 LINDA CANAS CALLIE Ot 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 02/01/2017 LILIANA LACOCER MD Ot E11.622 TYPE 2 DIABETES MELLITUS WITH OTHER SKIN 02/01/2017 LILIANA ALCOCER MD Ot F03.90 UNSPECIFIED DEMENTIA WITHOUT BEHAVIORAL 02/01/2017 LILIANA ALCOCER MD Ot 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 02/01/2017 LILIANA ALCOCER MD Ot I87.331 CHRONIC VENOUS HTN W ULCER AND INFLAMMAT 02/01/2017 LILIANA ALCOCER MD, Ot I89.0 LYMPHEDEMA, NOT ELSEWHERE CLASSIFIED 02/01/2017 LILIANA ALCOCER MD, Ot L97.211 NON-PRS CHRONIC ULCER OF RIGHT CALF LIMI 02/05/2017 LILIANA ALCOCER MD Ot E11.622 TYPE 2 DIABETES MELLITUS WITH OTHER SKIN 02/05/2017 LILIANA ALCOCER MD Ot F03.90 UNSPECIFIED DEMENTIA WITHOUT BEHAVIORAL 02/05/2017 LILIANA ALCOCER MD Ot 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 02/05/2017 LILIANA ALCOCER MD Ot I87.331 CHRONIC VENOUS HTN W ULCER AND INFLAMMAT 02/05/2017 LILIANA ALCOCER MD Ot I89.0 LYMPHEDEMA, NOT ELSEWHERE CLASSIFIED 02/05/2017 LILIANA ALCOCER MD Ot L97.211 NON-PRS CHRONIC ULCER OF RIGHT CALF LIMI 02/18/2017 LILIANA ALCOCER MD, Ot E11.622 TYPE 2 DIABETES MELLITUS WITH OTHER SKIN 02/18/2017 LILIANA ALCOCER MD, Ot F03.90 UNSPECIFIED DEMENTIA WITHOUT BEHAVIORAL 02/18/2017 LILIANA ALCOCER MD Ot 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 02/18/2017 LILIANA ALCOCER MD Ot I87.331 CHRONIC VENOUS HTN W ULCER AND INFLAMMAT 02/18/2017 LILIANA ALCOCER MD, Ot I89.0 LYMPHEDEMA, NOT ELSEWHERE CLASSIFIED 02/18/2017 LILIANA ALCOCER MD Ot L97.211 NON-PRS CHRONIC ULCER OF RIGHT CALF LIMI 02/18/2017 LILIAAN ALCOCER MD, Ot E11.622 TYPE 2 DIABETES MELLITUS WITH OTHER SKIN 02/18/2017 LILIANA ALCOCER MD, Ot F03.90 UNSPECIFIED DEMENTIA WITHOUT BEHAVIORAL 02/18/2017 LILIANA ALCOCER MD Ot 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 02/18/2017 LILIANA ALCOCER MD Ot I87.331 CHRONIC VENOUS HTN W ULCER AND INFLAMMAT 02/18/2017 LILIANA ALCOCER MD Ot I89.0 LYMPHEDEMA, NOT ELSEWHERE CLASSIFIED 02/18/2017 LILIANA ALCOCER MD, Ot L97.211 NON-PRS CHRONIC ULCER OF RIGHT CALF LIMI 02/19/2017 LILIANA ALCOCER MD, Ot E11.622 TYPE 2 DIABETES MELLITUS WITH OTHER SKIN 02/19/2017 LILIANA ALCOCER MD Ot F03.90 UNSPECIFIED DEMENTIA WITHOUT BEHAVIORAL 02/19/2017 LILIANA ALCOCER MD Ot 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 02/19/2017 LILIANA ALCOCER MD Ot I87.331 CHRONIC VENOUS HTN W ULCER AND INFLAMMAT 02/19/2017 LILIANA ALCOCER MD Ot I89.0 LYMPHEDEMA, NOT ELSEWHERE CLASSIFIED 02/19/2017 LILIANA ALCOCER MD, Ot L97.211 NON-PRS CHRONIC ULCER OF RIGHT CALF LIMI 03/06/2017 LILIANA ALCOCER MD Ot E11.622 TYPE 2 DIABETES MELLITUS WITH OTHER SKIN 03/06/2017 LILIANA ALCOCER MD Ot F03.90 UNSPECIFIED DEMENTIA WITHOUT BEHAVIORAL 03/06/2017 LILIANA ALCOCER MD, Ot 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 03/06/2017 LILIANA ALCOCER MD, Ot I87.331 CHRONIC VENOUS HTN W ULCER AND INFLAMMAT 03/06/2017 LILIANA ALCOCER MD, Ot I89.0 LYMPHEDEMA, NOT ELSEWHERE CLASSIFIED 03/06/2017 LILIANA ALCOCER MD, Ot L97.211 NON-PRS CHRONIC ULCER OF RIGHT CALF LIMI 03/06/2017 LILIANA ALCOCER MD, Ot E11.622 TYPE 2 DIABETES MELLITUS WITH OTHER SKIN 03/06/2017 LILIANA ALCOCER MD, Ot F03.90 UNSPECIFIED DEMENTIA WITHOUT BEHAVIORAL 03/06/2017 LILIANA ALCOCER MD, Ot 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 03/06/2017 LILIANA ALCOCER MD, Ot I87.331 CHRONIC VENOUS HTN W ULCER AND INFLAMMAT 03/06/2017 LILIANA ALCOCER MD, Ot I89.0 LYMPHEDEMA, NOT ELSEWHERE CLASSIFIED 03/06/2017 LILIANA ALCOCER MD, Ot L97.211 NON-PRS CHRONIC ULCER OF RIGHT [place] 03/09/2017 SILVA HENDERSON DO Ot E11.9 TYPE 2 DIABETES MELLITUS WITHOUT COMPLIC 03/09/2017 SILVA HENDERSON DO Ot E78.00 PURE HYPERCHOLESTEROLEMIA, UNSPECIFIED 03/09/2017 SILVA HENDERSON DO Ot F03.90 UNSPECIFIED DEMENTIA WITHOUT BEHAVIORAL 03/09/2017 SILVA HENDERSON DO Ot F32.9 MAJOR DEPRESSIVE DISORDER, SINGLE EPISOD 03/09/2017 SILVA HENDERSON DO Ot I10 ESSENTIAL (PRIMARY) HYPERTENSION 03/09/2017 SILVA HENDERSON DO Ot K59.09 OTHER CONSTIPATION 03/09/2017 SILVA HENDERSON DO Ot T85.518A BREAKDOWN (MECHANICAL) OF GI PROSTH DEV/ 03/09/2017 SILVA HENDERSON DO Ot Z87.19 PERSONAL HISTORY OF OTHER DISEASES OF TH 03/09/2017 SILVA HENDERSON DO Ot Z87.440 PERSONAL HISTORY OF URINARY (TRACT) INFE 03/09/2017 SILVA HENDERSON DO Ot Z87.891 PERSONAL HISTORY OF NICOTINE DEPENDENCE 03/09/2017 SILVA HENDERSON DO Ot Z95.0 PRESENCE OF CARDIAC PACEMAKER 03/11/2017 SILVA HENDERSON DO Ot E11.9 TYPE 2 DIABETES MELLITUS WITHOUT COMPLIC 03/11/2017 SANTIAGO DO, SILVA K Ot E78.00 PURE HYPERCHOLESTEROLEMIA, UNSPECIFIED 03/11/2017 SANTIAGO DO, SILVA K Ot F03.90 UNSPECIFIED DEMENTIA WITHOUT BEHAVIORAL 03/11/2017 SANTIAGO DO, SILVA K Ot F32.9 MAJOR DEPRESSIVE DISORDER, SINGLE EPISOD 03/11/2017 SANTIAGO DO, SILVA K Ot I10 ESSENTIAL (PRIMARY) HYPERTENSION 03/11/2017 SANTIAGO DO, SILVA K Ot K59.09 OTHER CONSTIPATION 03/11/2017 SANTIAGO DO, SILVA K Ot T85.518A BREAKDOWN (MECHANICAL) OF GI PROSTH DEV/ 03/11/2017 SANTIAGO DO, SILVA K Ot Z87.19 PERSONAL HISTORY OF OTHER DISEASES OF TH 03/11/2017 SANTIAGO DO, SILVA K Ot Z87.440 PERSONAL HISTORY OF URINARY (TRACT) INFE 03/11/2017 SANTIAGO DO, SILVA K Ot Z87.891 PERSONAL HISTORY OF NICOTINE DEPENDENCE 03/11/2017 SANTIAGO DO, SILVA K Ot Z95.0 PRESENCE OF CARDIAC PACEMAKER 03/14/2017 SANTIAGO DO, SILVA K Ot E11.9 TYPE 2 DIABETES MELLITUS WITHOUT COMPLIC 03/14/2017 SANTIAGO DO, SILVA K Ot E78.00 PURE HYPERCHOLESTEROLEMIA, UNSPECIFIED 03/14/2017 SANTIAGO DO, SILVA K Ot F03.90 UNSPECIFIED DEMENTIA WITHOUT BEHAVIORAL 03/14/2017 SANTIAGO DO, SILVA K Ot F32.9 MAJOR DEPRESSIVE DISORDER, SINGLE EPISOD 03/14/2017 SANTIAGO DO, SILVA K Ot I10 ESSENTIAL (PRIMARY) HYPERTENSION 03/14/2017 SANTIAGO DO, SILVA K Ot K59.09 OTHER CONSTIPATION 03/14/2017 SANTIAGO DO, SILVA K Ot T85.518A BREAKDOWN (MECHANICAL) OF GI PROSTH DEV/ 03/14/2017 SANTIAGO DO, SILVA K Ot Z87.19 PERSONAL HISTORY OF OTHER DISEASES OF TH 03/14/2017 SANTIAGO DO SILVA K Ot Z87.440 PERSONAL HISTORY OF URINARY (TRACT) INFE 03/14/2017 SANTIAGO DO, SILVA K Ot Z87.891 PERSONAL HISTORY OF NICOTINE DEPENDENCE 03/14/2017 SANTIAGO DO SILVA K Ot Z95.0 PRESENCE OF CARDIAC PACEMAKER 03/15/2017 WILMA RODRIGUEZ, SHIKHA Allen Ot D64.9 ANEMIA, UNSPECIFIED 03/15/2017 SHIKHA DILLON MD Ot 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 2 DIABETES MELLITUS WITH DIABETIC N 03/15/2017 SHIKHA DILLON MD, Ot E11.51 TYPE 2 DIABETES W DIABETIC PERIPHERAL AN 03/15/2017 SHIKHA DILLON MD Ot E78.00 PURE HYPERCHOLESTEROLEMIA, UNSPECIFIED 03/15/2017 SHIKHA DILLON MD Ot F03.90 UNSPECIFIED DEMENTIA WITHOUT BEHAVIORAL 03/15/2017 SHIKHA DILLON MD Ot F32.9 MAJOR DEPRESSIVE DISORDER, SINGLE EPISOD 03/15/2017 SHIKHA DILLON MD, Ot H40.9 UNSPECIFIED GLAUCOMA 03/15/2017 SHIKHA DILLON MD, Ot H91.90 UNSPECIFIED HEARING LOSS, UNSPECIFIED EA 03/15/2017 SHIKHA DILLON MD Ot I11.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 03/15/2017 SHIKHA DILLON MD Ot I25.10 ATHSCL HEART DISEASE OF [place] CORONARY 03/15/2017 SHIKHA DILLON MD Ot I25.2 OLD MYOCARDIAL INFARCTION 03/15/2017 SHIKHA DILLON MD Ot 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 03/15/2017 SHIKHA DILLON MD Ot I42.0 DILATED CARDIOMYOPATHY 03/15/2017 SHIKHA DILLON MD Ot I50.23 ACUTE ON CHRONIC SYSTOLIC (CONGESTIVE) H 03/15/2017 SHIKHA DILLON MD Ot 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 03/15/2017 SHIKHA DILLON MD Ot J44.9 CHRONIC OBSTRUCTIVE PULMONARY DISEASE, U 03/15/2017 SHIKHA DILLON MD, Ot K58.9 IRRITABLE BOWEL SYNDROME WITHOUT DIARRHE 03/15/2017 SHIKHA DILLON MD Ot L03.115 CELLULITIS OF RIGHT LOWER LIMB 03/15/2017 SHIKHA DILLON MD Ot L03.116 CELLULITIS OF LEFT LOWER LIMB 03/15/2017 SHIKHA DILLON MD Ot M19.91 PRIMARY OSTEOARTHRITIS, UNSPECIFIED SITE 03/15/2017 SHIKHA DILLON MD Ot M54.9 DORSALGIA, UNSPECIFIED 03/15/2017 SHIKHA DILLON MD Ot N18.3 CHRONIC KIDNEY DISEASE, STAGE 3 (MODERAT 03/15/2017 SHIKHA DILLON MD, Ot N31.9 NEUROMUSCULAR DYSFUNCTION OF BLADDER, UN 03/15/2017 SHIKHA DILLON MD, Ot N39.0 URINARY TRACT INFECTION, SITE NOT SPECIF 03/15/2017 SHIKHA DILLON MD, Ot Z66 DO NOT RESUSCITATE 03/15/2017 SHIKHA DILLON MD, Ot Z87.891 PERSONAL HISTORY OF NICOTINE DEPENDENCE 03/15/2017 SHIKHA DILLON MD, Ot Z93.50 UNSPECIFIED CYSTOSTOMY STATUS 03/15/2017 SHIKHA DILLON MD, Ot Z95.0 PRESENCE OF CARDIAC PACEMAKER 03/16/2017 SHIKHA DILLON MD, Ot D64.9 ANEMIA, UNSPECIFIED 03/16/2017 SHIKHA DILLON MD, Ot E11.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 2 DIABETES MELLITUS WITH DIABETIC N 03/16/2017 SHIKHA DILLON MD, Ot E11.51 TYPE 2 DIABETES W DIABETIC PERIPHERAL AN 03/16/2017 SHIKHA DILLON MD Ot E78.00 PURE HYPERCHOLESTEROLEMIA, UNSPECIFIED 03/16/2017 SHIKHA DILLON MD, Ot F03.90 UNSPECIFIED DEMENTIA WITHOUT BEHAVIORAL 03/16/2017 SHIKHA DILLON MD, Ot F32.9 MAJOR DEPRESSIVE DISORDER, SINGLE EPISOD 03/16/2017 SHIKHA DILLON MD, Ot H40.9 UNSPECIFIED GLAUCOMA 03/16/2017 SHIKHA DILLON MD, Ot H91.90 UNSPECIFIED HEARING LOSS, UNSPECIFIED EA 03/16/2017 SHIKHA DILLON MD, Ot I11.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 03/16/2017 SHIKHA DILLON MD, Ot I25.10 ATHSCL HEART DISEASE OF [place] CORONARY 03/16/2017 SHIKHA DILLON MD, Ot I25.2 OLD MYOCARDIAL INFARCTION 03/16/2017 SHIKHA DILLON MD, Ot 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 03/16/2017 SHIKHA DILLON MD, Ot I42.0 DILATED CARDIOMYOPATHY 03/16/2017 SHIKHA DILLON MD Ot I50.23 ACUTE ON CHRONIC SYSTOLIC (CONGESTIVE) H 03/16/2017 SHIKHA DILLON MD, Ot 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 03/16/2017 SHIKHA DILLON MD, Ot J44.9 CHRONIC OBSTRUCTIVE PULMONARY DISEASE, U 03/16/2017 SHIKHA DILLON MD, Ot K58.9 IRRITABLE BOWEL SYNDROME WITHOUT DIARRHE 03/16/2017 SHIKHA DILLON MD, Ot L03.115 CELLULITIS OF RIGHT LOWER LIMB 03/16/2017 SHIKHA DILLON MD, Ot L03.116 CELLULITIS OF LEFT LOWER LIMB 03/16/2017 SHIKHA DILLON MD, Ot M19.91 PRIMARY OSTEOARTHRITIS, UNSPECIFIED SITE 03/16/2017 SHIKHA DILLON MD, Ot M54.9 DORSALGIA, UNSPECIFIED 03/16/2017 SHIKHA DILLON MD, Ot N18.3 CHRONIC KIDNEY DISEASE, STAGE 3 (MODERAT 03/16/2017 SHIKHA DILLON MD, Ot N31.9 NEUROMUSCULAR DYSFUNCTION OF BLADDER, UN 03/16/2017 SHIKHA DILLON MD, Ot N39.0 URINARY TRACT INFECTION, SITE NOT SPECIF 03/16/2017 SHIKHA DILLON MD, Ot Z66 DO NOT RESUSCITATE 03/16/2017 SHIKHA DILLON MD, Ot Z87.891 PERSONAL HISTORY OF NICOTINE DEPENDENCE 03/16/2017 SHIKHA DILLON MD, Ot Z93.50 UNSPECIFIED CYSTOSTOMY STATUS 03/16/2017 SHIKHA DILLON MD, Ot Z95.0 PRESENCE OF CARDIAC PACEMAKER 03/17/2017 SHIKHA DILLON MD, Ot D64.9 ANEMIA, UNSPECIFIED 03/17/2017 SHIKHA DILLON MD, Ot E11.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 2 DIABETES MELLITUS WITH DIABETIC N 03/17/2017 SHIKHA DILLON MD, Ot E11.51 TYPE 2 DIABETES W DIABETIC PERIPHERAL AN 03/17/2017 SHIKHA DILLON MD, Ot E78.00 PURE HYPERCHOLESTEROLEMIA, UNSPECIFIED 03/17/2017 SHIKHA DILLON MD, Ot F03.90 UNSPECIFIED DEMENTIA WITHOUT BEHAVIORAL 03/17/2017 SHIKHA DILLON MD, Ot F32.9 MAJOR DEPRESSIVE DISORDER, SINGLE EPISOD 03/17/2017 SHIKHA DILLON MD, Ot H40.9 UNSPECIFIED GLAUCOMA 03/17/2017 SHIKHA DILLON MD, Ot H91.90 UNSPECIFIED HEARING LOSS, UNSPECIFIED EA 03/17/2017 SHIKHA DILLON MD, Ot I11.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 03/17/2017 SHIKHA DILLON MD, Ot I25.10 ATHSCL HEART DISEASE OF [place] CORONARY 03/17/2017 SHIKHA DILLON MD, Ot I25.2 OLD MYOCARDIAL INFARCTION 03/17/2017 SHIKHA DILLON MD, Ot 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 03/17/2017 SHIKHA DILLON MD, Ot I42.0 DILATED CARDIOMYOPATHY 03/17/2017 SHIKHA DILLON MD, Ot I50.23 ACUTE ON CHRONIC SYSTOLIC (CONGESTIVE) H 03/17/2017 SHIKHA DILLON MD, Ot 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 03/17/2017 SHIKHA DILLON MD, Ot J44.9 CHRONIC OBSTRUCTIVE PULMONARY DISEASE, U 03/17/2017 SHIKHA DILLON MD, Ot K58.9 IRRITABLE BOWEL SYNDROME WITHOUT DIARRHE 03/17/2017 SHIKHA DILLON MD Ot L03.115 CELLULITIS OF RIGHT LOWER LIMB 03/17/2017 SHIKHA DILLON MD, Ot L03.116 CELLULITIS OF LEFT LOWER LIMB 03/17/2017 SHIKHA DILLON MD, Ot M19.91 PRIMARY OSTEOARTHRITIS, UNSPECIFIED SITE 03/17/2017 SHIKHA DILLON MD, Ot M54.9 DORSALGIA, UNSPECIFIED 03/17/2017 SHIKHA DILLON MD, Ot N18.3 CHRONIC KIDNEY DISEASE, STAGE 3 (MODERAT 03/17/2017 SHIKHA DILLON MD, Ot N31.9 NEUROMUSCULAR DYSFUNCTION OF BLADDER, UN 03/17/2017 SHIKHA DILLON MD, Ot N39.0 URINARY TRACT INFECTION, SITE NOT SPECIF 03/17/2017 SHIKHA DILLON MD, Ot Z66 DO NOT RESUSCITATE 03/17/2017 SHIKHA DILLON MD, Ot Z87.891 PERSONAL HISTORY OF NICOTINE DEPENDENCE 03/17/2017 SHIKHA DILLON MD, Ot Z93.50 UNSPECIFIED CYSTOSTOMY STATUS 03/17/2017 SHIKHA DILLON MD, Ot Z95.0 PRESENCE OF CARDIAC PACEMAKER 03/17/2017 SHIKHA DILLON MD, Ot D64.9 ANEMIA, UNSPECIFIED 03/17/2017 SHIKHA DILLON MD Ot 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10 ATHSCL HEART DISEASE OF [place] CORONARY 03/17/2017 SHIKHA DILLON MD Ot I25.2 OLD MYOCARDIAL INFARCTION 03/17/2017 SHIKHA DILLON MD Ot 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 03/17/2017 SHIKHA DILLON MD Ot I42.0 DILATED CARDIOMYOPATHY 03/17/2017 SHIKHA DILLON MD Ot I50.23 ACUTE ON CHRONIC SYSTOLIC (CONGESTIVE) H 03/17/2017 SHIKHA DILLON MD Ot 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 03/17/2017 SHIKHA DILLON MD Ot J44.9 CHRONIC OBSTRUCTIVE PULMONARY DISEASE, U 03/17/2017 SHIKHA DILLON MD Ot K58.9 IRRITABLE BOWEL SYNDROME WITHOUT DIARRHE 03/17/2017 SHIKHA DILLON MD Ot L03.115 CELLULITIS OF RIGHT LOWER LIMB 03/17/2017 SHIKHA DILLON MD Ot L03.116 CELLULITIS OF LEFT LOWER LIMB 03/17/2017 SHIKHA DILLON MD Ot M19.91 PRIMARY OSTEOARTHRITIS, UNSPECIFIED SITE 03/17/2017 SHIKHA DILLON MD, Ot M54.9 DORSALGIA, UNSPECIFIED 03/17/2017 SHIKHA DILLON MD Ot N18.3 CHRONIC KIDNEY DISEASE, STAGE 3 (MODERAT 03/17/2017 SHIKHA DILLON MD Ot N31.9 NEUROMUSCULAR DYSFUNCTION OF BLADDER, UN 03/17/2017 SHIKHA DILLON MD, Ot N39.0 URINARY TRACT INFECTION, SITE NOT SPECIF 03/17/2017 SHIKHA DILLON MD Ot Z66 DO NOT RESUSCITATE 03/17/2017 SHIKHA DILLON MD, Ot Z87.891 PERSONAL HISTORY OF NICOTINE DEPENDENCE 03/17/2017 SHIKHA DILLON MD Ot Z93.50 UNSPECIFIED CYSTOSTOMY STATUS 03/17/2017 SHIKHA DILLON MD Ot Z95.0 PRESENCE OF CARDIAC PACEMAKER 03/18/2017 SHIKHA DILLON MD, Ot D64.9 ANEMIA, UNSPECIFIED 03/18/2017 SHIKHA DILLON MD, Ot E11.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 2 DIABETES MELLITUS WITH DIABETIC N 03/18/2017 SHIKHA IDLLON MD, Ot E11.51 TYPE 2 DIABETES W DIABETIC PERIPHERAL AN 03/18/2017 SHIKHA DILLON MD, Ot E78.00 PURE HYPERCHOLESTEROLEMIA, UNSPECIFIED 03/18/2017 SHIKHA DILLON MD Ot F03.90 UNSPECIFIED DEMENTIA WITHOUT BEHAVIORAL 03/18/2017 SHIKHA DILLON MD Ot F32.9 MAJOR DEPRESSIVE DISORDER, SINGLE EPISOD 03/18/2017 SHIKHA DILLON MD, Ot H40.9 UNSPECIFIED GLAUCOMA 03/18/2017 SHIKHA DILLON MD, Ot H91.90 UNSPECIFIED HEARING LOSS, UNSPECIFIED EA 03/18/2017 SHIKHA DILLON MD Ot I11.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 03/18/2017 SHIKHA DILLON MD Ot I25.10 ATHSCL HEART DISEASE OF [place] CORONARY 03/18/2017 SHIKHA DILLON MD Ot I25.2 OLD MYOCARDIAL INFARCTION 03/18/2017 SHIKHA DILLON MD, Ot 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 03/18/2017 SHIKHA DILLON MD Ot I42.0 DILATED CARDIOMYOPATHY 03/18/2017 SHIKHA DILLON MD Ot I50.23 ACUTE ON CHRONIC SYSTOLIC (CONGESTIVE) H 03/18/2017 SHIKHA DILLON MD Ot 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 03/18/2017 SHIKHA DILLON MD Ot J44.9 CHRONIC OBSTRUCTIVE PULMONARY DISEASE, U 03/18/2017 SHIKHA DILLON MD, Ot K58.9 IRRITABLE BOWEL SYNDROME WITHOUT DIARRHE 03/18/2017 SHIKHA DILLON MD Ot L03.115 CELLULITIS OF RIGHT LOWER LIMB 03/18/2017 SHIKHA DILLON MD, Ot L03.116 CELLULITIS OF LEFT LOWER LIMB 03/18/2017 SHIKHA DILLON MD, Ot M19.91 PRIMARY OSTEOARTHRITIS, UNSPECIFIED SITE 03/18/2017 SHIKHA DILLON MD, Ot M54.9 DORSALGIA, UNSPECIFIED 03/18/2017 SHIKHA DILLON MD, Ot N18.3 CHRONIC KIDNEY DISEASE, STAGE 3 (MODERAT 03/18/2017 SHIKHA DILLON MD, Ot N31.9 NEUROMUSCULAR DYSFUNCTION OF BLADDER, UN 03/18/2017 SHIKHA DILLON MD, Ot N39.0 URINARY TRACT INFECTION, SITE NOT SPECIF 03/18/2017 SHIKHA DILLON MD, Ot Z66 DO NOT RESUSCITATE 03/18/2017 SHIKHA DILLON MD, Ot Z87.891 PERSONAL HISTORY OF NICOTINE DEPENDENCE 03/18/2017 SHIKHA DILLON MD Ot Z93.50 UNSPECIFIED CYSTOSTOMY STATUS 03/18/2017 SHIKHA DILLON MD Ot Z95.0 PRESENCE OF CARDIAC PACEMAKER 03/18/2017 SHIKHA DILLON MD, Ot D64.9 ANEMIA, UNSPECIFIED 03/18/2017 SHIKHA DILLON MD Ot 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 2 DIABETES MELLITUS WITH DIABETIC N 03/18/2017 SHIKHA DILLON MD Ot E11.51 TYPE 2 DIABETES W DIABETIC PERIPHERAL AN 03/18/2017 SHIKHA DILLON MD Ot E78.00 PURE HYPERCHOLESTEROLEMIA, UNSPECIFIED 03/18/2017 SHIKHA DILLON MD, Ot F03.90 UNSPECIFIED DEMENTIA WITHOUT BEHAVIORAL 03/18/2017 SHIKHA DILLON MD Ot F32.9 MAJOR DEPRESSIVE DISORDER, SINGLE EPISOD 03/18/2017 SHIKHA DILLON MD, Ot H40.9 UNSPECIFIED GLAUCOMA 03/18/2017 SHIKHA DILLON MD, Ot H91.90 UNSPECIFIED HEARING LOSS, UNSPECIFIED EA 03/18/2017 SHIKHA DILLON MD Ot I11.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 03/18/2017 SHIKHA DILLON MD, Ot I25.10 ATHSCL HEART DISEASE OF [place] CORONARY 03/18/2017 SHIKHA DILLON MD, Ot I25.2 OLD MYOCARDIAL INFARCTION 03/18/2017 SHIKHA DILLON MD, Ot 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 03/18/2017 SHIKHA DILLON MD, Ot I42.0 DILATED CARDIOMYOPATHY 03/18/2017 SHIKHA DILLON MD, Ot I50.23 ACUTE ON CHRONIC SYSTOLIC (CONGESTIVE) H 03/18/2017 SHIKHA DILLON MD, Ot 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 03/18/2017 SHIKHA DILLON MD, Ot J44.9 CHRONIC OBSTRUCTIVE PULMONARY DISEASE, U 03/18/2017 SHIKHA DILLON MD, Ot K58.9 IRRITABLE BOWEL SYNDROME WITHOUT DIARRHE 03/18/2017 SHIKHA DILLON MD, Ot L03.115 CELLULITIS OF RIGHT LOWER LIMB 03/18/2017 SHIKHA DILLON MD, Ot L03.116 CELLULITIS OF LEFT LOWER LIMB 03/18/2017 SHIKHA DILLON MD, Ot M19.91 PRIMARY OSTEOARTHRITIS, UNSPECIFIED SITE 03/18/2017 SHIKHA DILLON MD, Ot M54.9 DORSALGIA, UNSPECIFIED 03/18/2017 SHIKHA DILLON MD, Ot N18.3 CHRONIC KIDNEY DISEASE, STAGE 3 (MODERAT 03/18/2017 SHIKHA DILLON MD, Ot N31.9 NEUROMUSCULAR DYSFUNCTION OF BLADDER, UN 03/18/2017 SHIKHA DILLON MD, Ot N39.0 URINARY TRACT INFECTION, SITE NOT SPECIF 03/18/2017 SHIKHA DILLON MD, Ot Z66 DO NOT RESUSCITATE 03/18/2017 SHIKHA DILLON MD, Ot Z87.891 PERSONAL HISTORY OF NICOTINE DEPENDENCE 03/18/2017 SHIKHA DILLON MD, Ot Z93.50 UNSPECIFIED CYSTOSTOMY STATUS 03/18/2017 SHIKHA DILLON MD, Ot Z95.0 PRESENCE OF CARDIAC PACEMAKER 03/19/2017 SHIKHA DILLON MD, Ot D64.9 ANEMIA, UNSPECIFIED 03/19/2017 SHIKHA DILLON MD, Ot 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10 ATHSCL HEART DISEASE OF [place] CORONARY 03/19/2017 SHIKHA DILLON MD, Ot I25.2 OLD MYOCARDIAL INFARCTION 03/19/2017 SHIKHA DILLON MD Ot 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 03/19/2017 SHIKHA DILLON MD Ot I42.0 DILATED CARDIOMYOPATHY 03/19/2017 SHIKHA DILLON MD Ot I50.23 ACUTE ON CHRONIC SYSTOLIC (CONGESTIVE) H 03/19/2017 SHIKHA DILLON MD Ot 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 03/19/2017 SHIKHA DILLON MD Ot J44.9 CHRONIC OBSTRUCTIVE PULMONARY DISEASE, U 03/19/2017 SHIKHA DILLON MD Ot K58.9 IRRITABLE BOWEL SYNDROME WITHOUT DIARRHE 03/19/2017 SHIKHA DILLON MD Ot L03.115 CELLULITIS OF RIGHT LOWER LIMB 03/19/2017 SHIKHA DILLON MD Ot L03.116 CELLULITIS OF LEFT LOWER LIMB 03/19/2017 SHIKHA DILLON MD Ot M19.91 PRIMARY OSTEOARTHRITIS, UNSPECIFIED SITE 03/19/2017 SHIKHA DILLON MD, Ot M54.9 DORSALGIA, UNSPECIFIED 03/19/2017 SHIKHA DILLON MD Ot N18.3 CHRONIC KIDNEY DISEASE, STAGE 3 (MODERAT 03/19/2017 SHIKHA DILLON MD, Ot N31.9 NEUROMUSCULAR DYSFUNCTION OF BLADDER, UN 03/19/2017 SHIKHA DILLON MD, Ot N39.0 URINARY TRACT INFECTION, SITE NOT SPECIF 03/19/2017 SHIKHA DILLON MD Ot Z66 DO NOT RESUSCITATE 03/19/2017 SHIKHA DILLON MD, Ot Z87.891 PERSONAL HISTORY OF NICOTINE DEPENDENCE 03/19/2017 SHIKHA DILLON MD, Ot Z93.50 UNSPECIFIED CYSTOSTOMY STATUS 03/19/2017 SHIKHA DILLON MD Ot Z95.0 PRESENCE OF CARDIAC PACEMAKER 03/20/2017 SHIKHA DILLON MD Ot D64.9 ANEMIA, UNSPECIFIED 03/20/2017 SHIKHA DILLON MD Ot E11.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10 ATHSCL HEART DISEASE OF [place] CORONARY 03/20/2017 SHIKHA DILLON MD Ot I25.2 OLD MYOCARDIAL INFARCTION 03/20/2017 SHIKHA DILLON MD Ot 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 03/20/2017 SHIKHA DILLON MD Ot I42.0 DILATED CARDIOMYOPATHY 03/20/2017 SHIKHA DILLON MD Ot I50.23 ACUTE ON CHRONIC SYSTOLIC (CONGESTIVE) H 03/20/2017 SHIKHA DILLON MD Ot 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 03/20/2017 SHIKHA DILLON MD Ot J44.9 CHRONIC OBSTRUCTIVE PULMONARY DISEASE, U 03/20/2017 SHIKHA DILLON MD Ot K58.9 IRRITABLE BOWEL SYNDROME WITHOUT DIARRHE 03/20/2017 SHIKHA DILLON MD Ot L03.115 CELLULITIS OF RIGHT LOWER LIMB 03/20/2017 SHIKHA DILLON MD Ot L03.116 CELLULITIS OF LEFT LOWER LIMB 03/20/2017 SHIKHA DILLON MD Ot M19.91 PRIMARY OSTEOARTHRITIS, UNSPECIFIED SITE 03/20/2017 SHIKHA DILLON MD, Ot M54.9 DORSALGIA, UNSPECIFIED 03/20/2017 SHIKHA DILLON MD, Ot N18.3 CHRONIC KIDNEY DISEASE, STAGE 3 (MODERAT 03/20/2017 SHIKHA DILLON MD, Ot N31.9 NEUROMUSCULAR DYSFUNCTION OF BLADDER, UN 03/20/2017 SHIKHA DILLON MD, Ot N39.0 URINARY TRACT INFECTION, SITE NOT SPECIF 03/20/2017 SHIKHA DILLON MD Ot Z66 DO NOT RESUSCITATE 03/20/2017 SHIKHA DILLON MD, Ot Z87.891 PERSONAL HISTORY OF NICOTINE DEPENDENCE 03/20/2017 SHIKHA DILLON MD, Ot Z93.50 UNSPECIFIED CYSTOSTOMY STATUS 03/20/2017 SHIKHA DILLON MD Ot Z95.0 PRESENCE OF CARDIAC PACEMAKER 03/20/2017 SHIKHA DILLON MD, Ot D64.9 ANEMIA, UNSPECIFIED 03/20/2017 SHIKHA DILLON MD Ot E11.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 2 DIABETES MELLITUS WITH DIABETIC N 03/20/2017 SHIKHA DILLON MD Ot E11.51 TYPE 2 DIABETES W DIABETIC PERIPHERAL AN 03/20/2017 SHIKHA DILLON MD Ot E78.00 PURE HYPERCHOLESTEROLEMIA, UNSPECIFIED 03/20/2017 SHIKHA DILLON MD, Ot E78.5 HYPERLIPIDEMIA, UNSPECIFIED 03/20/2017 SHIKHA DILLON MD Ot E87.0 HYPEROSMOLALITY AND HYPERNATREMIA 03/20/2017 SHIKHA DILLON MD Ot F03.90 UNSPECIFIED DEMENTIA WITHOUT BEHAVIORAL 03/20/2017 SHIKHA DILLON MD Ot F32.9 MAJOR DEPRESSIVE DISORDER, SINGLE EPISOD 03/20/2017 SHIKHA DILLON MD, Ot H40.9 UNSPECIFIED GLAUCOMA 03/20/2017 SHIKHA DILLON MD, Ot H91.90 UNSPECIFIED HEARING LOSS, UNSPECIFIED EA 03/20/2017 SHIKHA DILLON MD, Ot I11.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 03/20/2017 SHIKHA DILLON MD, Ot I25.10 ATHSCL HEART DISEASE OF [place] CORONARY 03/20/2017 SHIKHA DILLON MD, Ot I25.2 OLD MYOCARDIAL INFARCTION 03/20/2017 SHIKHA DILLON MD, Ot 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 03/20/2017 SHIKHA DILLON MD, Ot I42.0 DILATED CARDIOMYOPATHY 03/20/2017 SHIKHA DILLON MD, Ot I50.23 ACUTE ON CHRONIC SYSTOLIC (CONGESTIVE) H 03/20/2017 SHIKHA DILLON MD, Ot 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 03/20/2017 SHIKHA DILLON MD, Ot J44.9 CHRONIC OBSTRUCTIVE PULMONARY DISEASE, U 03/20/2017 SHIKHA DILLON MD, Ot K58.9 IRRITABLE BOWEL SYNDROME WITHOUT DIARRHE 03/20/2017 SHIKHA DILLON MD, Ot L03.115 CELLULITIS OF RIGHT LOWER LIMB 03/20/2017 SHIKHA DILLON MD, Ot L03.116 CELLULITIS OF LEFT LOWER LIMB 03/20/2017 SHIKHA DILLON MD, Ot M19.91 PRIMARY OSTEOARTHRITIS, UNSPECIFIED SITE 03/20/2017 SHIKHA DILLON MD, Ot M54.9 DORSALGIA, UNSPECIFIED 03/20/2017 SHIKHA DILLON MD, Ot N18.3 CHRONIC KIDNEY DISEASE, STAGE 3 (MODERAT 03/20/2017 SHIKHA DILLON MD, Ot N31.9 NEUROMUSCULAR DYSFUNCTION OF [place], UN 03/20/2017 SHIKHA DILLON MD, Ot N39.0 URINARY TRACT INFECTION, SITE NOT SPECIF 03/20/2017 SHIKHA DILLON MD, Ot T83.510A I/I REACT D/T CYSTOSTOMY CATHETER, INITI 03/20/2017 SHIKHA DILLON MD, Ot Z66 DO NOT RESUSCITATE 03/20/2017 SHIKHA DILLON MD, Ot Z87.891 PERSONAL HISTORY OF NICOTINE DEPENDENCE 03/20/2017 SHIKHA DILLON MD, Ot Z93.50 UNSPECIFIED CYSTOSTOMY STATUS 03/20/2017 SHIKHA DILLON MD, Ot Z95.0 PRESENCE OF CARDIAC PACEMAKER Procedures Code Description Performed By Performed On 88.48 CONTRAST ARTERIOGRAM-LEG 04/29/2014 [id number] RESECTION OF GALLBLADDER, OPEN APPROACH 02/15/2015 [id number] INSPECTION OF ABDOMINAL WALL, PERC ENDO 02/15/2015 [id number] INSERTION OF INFUSION DEV INTO SUP VENA 03/14/2017 Results Test Result Range Complete blood count [...] culture - 06/19/16 15:00 Bacterial urine culture [id number] NRG COLONY COUNT <10,000 NRG Comprehensive metabolic [...] culture - 01/14/17 18:23 Bacterial urine culture [id number] NRG COLONY COUNT >100,000/ML NRG FTX;REPORTABLE SENSITIVITIES [...] susceptibility test by minimum inhibitory concentration - [facility] Bacterial susceptibility panel - 01/14/17 18:23 Gentamicin [...] susceptibility test by minimum inhibitory concentration - [facility] Bacterial susceptibility panel - 01/14/17 18:23 Gentamicin [...] plasma albumin measurement (mass/volume) 3.1 g/dL 3.2-4.5 Complete urinalysis with reflex to culture - 03/14/17 17:12 Urine color determination YELLOW NRG Urine clarity determination SLIGHTLY CLOUDY NRG Urine pH measurement by test [...] urobilinogen measurement by automated test strip (mass/volume) 4 mg/dL NORMAL Urine leukocyte esterase detection by dipstick 2+ NEGATIVE Automated urine sediment erythrocyte count by microscopy (number/high power field) [HPF] NRG Automated urine sediment leukocyte count by microscopy (number/high power field ) [HPF] NRG Bacteria detection in urine sediment by light microscopy FEW NRG Crystals detection in urine sediment by light microscopy PRESENT NRG Casts detection in urine sediment by light microscopy NONE NRG Mucus detection in urine sediment by light microscopy NEGATIVE NRG Complete urinalysis with reflex to culture NO NRG Amorphous sediment detection in urine sediment by light microscopy FEW JUN PHOSPHATE NRG Triple phosphate crystals detection in urine sediment by light microscopy MODERATE NRG Influenza virus A and B antigen detection - 03/14/17 17:37 FLU RESULT NEGATIVE FOR INFLUENZA A AND B ANTIGENS BY IA NRG Bacterial blood culture - 03/14/17 18:05 Bacterial blood culture NG NRG Complete blood count (CBC) with automated white blood cell (WBC) differential - 03/14/17 18:40 Blood leukocytes automated count (number/volume) 11.8 10*3/uL 4.3-11.0 Blood erythrocytes automated count (number/volume) 3.91 10*6/uL 4.35-5.85 Venous blood hemoglobin measurement (mass/volume) 11.8 g/dL 13.3-17.7 Blood hematocrit (volume fraction) 37 % 40-54 Automated erythrocyte mean corpuscular volume 94 [foz_us] 80-99 Automated erythrocyte mean corpuscular hemoglobin (mass per erythrocyte) 30 pg 25-34 Automated erythrocyte mean corpuscular hemoglobin concentration measurement ( mass/volume) 32 g/dL 32-36 Automated erythrocyte distribution width ratio 14.5 % 10.0-14.5 Automated blood platelet count (count/volume) 125 10*3/uL 130-400 Automated blood platelet mean volume measurement 11.5 [foz_us] 7.4-10.4 Automated blood neutrophils/100 leukocytes 78 % 42-75 Automated blood lymphocytes/100 leukocytes 11 % 12-44 Blood monocytes/100 leukocytes 10 % 0-12 Automated blood eosinophils/100 leukocytes 1 % 0-10 Automated blood basophils/100 leukocytes 0 % 0-10 Blood neutrophils automated count (number/volume) 9.2 10*3 1.8-7.8 Blood lymphocytes automated count (number/volume) 1.3 10*3 1.0-4.0 Blood monocytes automated count (number/volume) 1.2 10*3 0.0-1.0 Automated eosinophil count 0.1 10*3/uL 0.0-0.3 Automated blood basophil count (count/volume) 0.0 10*3/uL 0.0-0.1 Blood lactic acid measurement (moles/volume) - 03/14/17 18:40 Blood lactic acid measurement (moles/volume) 1.04 mmol/L 0.50-2.00 PT panel in platelet poor plasma by coagulation assay - 03/14/17 18:40 Prothrombin time (PT) in platelet poor plasma by coagulation assay 14.9 s 12.2-14.7 INR in platelet poor plasma or blood by coagulation assay 1.2 0.8-1.4 Activated partial thromboplastin time (aPTT) in platelet poor plasma bycoagulation assay - 03/14/17 18:40 Activated partial thromboplastin time (aPTT) in platelet poor plasma bycoagulation assay 22 s 24-35 Comprehensive metabolic panel - 03/14/17 18:40 Serum or plasma sodium measurement (moles/volume) 145 mmol/L 135-145 Serum or plasma potassium measurement (moles/volume) 4.1 mmol/L 3.6-5.0 Serum or plasma chloride measurement (moles/volume) 105 mmol/L 98-107 Carbon dioxide 28 mmol/L 21-32 Serum or plasma anion gap determination (moles/volume) 12 mmol/L 5-14 Serum or plasma urea nitrogen measurement (mass/volume) 22 mg/dL 7-18 Serum or plasma creatinine measurement (mass/volume) 1.38 mg/dL 0.60-1.30 Serum or plasma urea nitrogen/creatinine mass ratio 16 NRG Serum or plasma creatinine measurement with calculation of estimated glomerular filtration rate 59 NRG Serum or plasma glucose measurement (mass/volume) 102 mg/dL 70-105 Serum or plasma calcium measurement (mass/volume) 8.7 mg/dL 8.5-10.1 Serum or plasma total bilirubin measurement (mass/volume) 1.8 mg/dL 0.1-1.0 Serum or plasma alkaline phosphatase measurement (enzymatic activity/volume) 126 U/L 40-136 Serum or plasma aspartate aminotransferase measurement (enzymatic activity/ volume) 32 U/L 5-34 Serum or plasma alanine aminotransferase measurement (enzymatic activity/volume ) 25 U/L 0-55 Serum or plasma protein measurement (mass/volume) 6.4 g/dL 6.4-8.2 Serum or plasma albumin measurement (mass/volume) 3.4 g/dL 3.2-4.5 Serum or plasma lithium measurement (moles/volume) - 03/14/17 18:40 BNP level 3197.3 pg/mL <100.0 Bacterial blood culture - 03/14/17 18:40 FREE TEXT EXTERNAL SEE COMMENT NRG QUANTITY OF GROWTH . NRG Bacterial blood culture SEE COMMEN NRG Complete blood count (CBC) with automated white blood cell (WBC) differential - 03/15/17 04:50 Blood leukocytes automated count (number/volume) 10.3 10*3/uL 4.3-11.0 Blood erythrocytes automated count (number/volume) 3.60 10*6/uL 4.35-5.85 Venous blood hemoglobin measurement (mass/volume) 10.8 g/dL 13.3-17.7 Blood hematocrit (volume fraction) 34 % 40-54 Automated erythrocyte mean corpuscular volume 95 [foz_us] 80-99 Automated erythrocyte mean corpuscular hemoglobin (mass per erythrocyte) 30 pg 25-34 Automated erythrocyte mean corpuscular hemoglobin concentration measurement ( mass/volume) 32 g/dL 32-36 Automated erythrocyte distribution width ratio 14.6 % 10.0-14.5 Automated blood platelet count (count/volume) 122 10*3/uL 130-400 Automated blood platelet mean volume measurement 10.8 [foz_us] 7.4-10.4 Automated blood neutrophils/100 leukocytes 75 % 42-75 Automated blood lymphocytes/100 leukocytes 14 % 12-44 Blood monocytes/100 leukocytes 10 % 0-12 Automated blood eosinophils/100 leukocytes 1 % 0-10 Automated blood basophils/100 leukocytes 0 % 0-10 Blood neutrophils automated count (number/volume) 7.7 10*3 1.8-7.8 Blood lymphocytes automated count (number/volume) 1.5 10*3 1.0-4.0 Blood monocytes automated count (number/volume) 1.0 10*3 0.0-1.0 Automated eosinophil count 0.1 10*3/uL 0.0-0.3 Automated blood basophil count (count/volume) 0.0 10*3/uL 0.0-0.1 Whole blood basic metabolic panel - 03/15/17 04:50 Serum or plasma sodium measurement (moles/volume) 150 mmol/L 135-145 Serum or plasma potassium measurement (moles/volume) 3.8 mmol/L 3.6-5.0 Serum or plasma chloride measurement (moles/volume) 110 mmol/L 98-107 Carbon dioxide 27 mmol/L 21-32 Serum or plasma anion gap determination (moles/volume) 13 mmol/L 5-14 Serum or plasma urea nitrogen measurement (mass/volume) 19 mg/dL 7-18 Serum or plasma creatinine measurement (mass/volume) 1.27 mg/dL 0.60-1.30 Serum or plasma urea nitrogen/creatinine mass ratio 15 NRG Serum or plasma creatinine measurement with calculation of estimated glomerular filtration rate > NRG Serum or plasma glucose measurement (mass/volume) 90 mg/dL 70-105 Serum or plasma calcium measurement (mass/volume) 8.3 mg/dL 8.5-10.1 Complete blood count (CBC) with automated white blood cell (WBC) differential - 03/16/17 06:17 Blood leukocytes automated count (number/volume) 10.1 10*3/uL 4.3-11.0 Blood erythrocytes automated count (number/volume) 3.61 10*6/uL 4.35-5.85 Venous blood hemoglobin measurement (mass/volume) 10.9 g/dL 13.3-17.7 Blood hematocrit (volume fraction) 34 % 40-54 Automated erythrocyte mean corpuscular volume 95 [foz_us] 80-99 Automated erythrocyte mean corpuscular hemoglobin (mass per erythrocyte) 30 pg 25-34 Automated erythrocyte mean corpuscular hemoglobin concentration measurement ( mass/volume) 32 g/dL 32-36 Automated erythrocyte distribution width ratio 14.5 % 10.0-14.5 Automated blood platelet count (count/volume) 128 10*3/uL 130-400 Automated blood platelet mean volume measurement 11.3 [foz_us] 7.4-10.4 Automated blood neutrophils/100 leukocytes 75 % 42-75 Automated blood lymphocytes/100 leukocytes 11 % 12-44 Blood monocytes/100 leukocytes 10 % 0-12 Automated blood eosinophils/100 leukocytes 3 % 0-10 Automated blood basophils/100 leukocytes 0 % 0-10 Blood neutrophils automated count (number/volume) 7.5 10*3 1.8-7.8 Blood lymphocytes automated count (number/volume) 1.1 10*3 1.0-4.0 Blood monocytes automated count (number/volume) 1.0 10*3 0.0-1.0 Automated eosinophil count 0.3 10*3/uL 0.0-0.3 Automated blood basophil count (count/volume) 0.0 10*3/uL 0.0-0.1 Comprehensive metabolic panel - 03/16/17 06:17 Serum or plasma sodium measurement (moles/volume) 144 mmol/L 135-145 Serum or plasma potassium measurement (moles/volume) 3.0 mmol/L 3.6-5.0 Serum or plasma chloride measurement (moles/volume) 101 mmol/L 98-107 Carbon dioxide 31 mmol/L 21-32 Serum or plasma anion gap determination (moles/volume) 12 mmol/L 5-14 Serum or plasma urea nitrogen measurement (mass/volume) 19 mg/dL 7-18 Serum or plasma creatinine measurement (mass/volume) 1.18 mg/dL 0.60-1.30 Serum or plasma urea nitrogen/creatinine mass ratio 16 NRG Serum or plasma creatinine measurement with calculation of estimated glomerular filtration rate > NRG Serum or plasma glucose measurement (mass/volume) 94 mg/dL 70-105 Serum or plasma calcium measurement (mass/volume) 8.1 mg/dL 8.5-10.1 Serum or plasma total bilirubin measurement (mass/volume) 1.6 mg/dL 0.1-1.0 Serum or plasma alkaline phosphatase measurement (enzymatic activity/volume) 113 U/L 40-136 Serum or plasma aspartate aminotransferase measurement (enzymatic activity/ volume) 25 U/L 5-34 Serum or plasma alanine aminotransferase measurement (enzymatic activity/volume ) 20 U/L 0-55 Serum or plasma protein measurement (mass/volume) 5.7 g/dL 6.4-8.2 Serum or plasma albumin measurement (mass/volume) 3.0 g/dL 3.2-4.5 Vancomycin trough - 03/16/17 08:55 Vancomycin trough 12.9 ug/mL 10.0-20.0 Complete blood count (CBC) with automated white blood cell (WBC) differential - 03/17/17 06:51 Blood leukocytes automated count (number/volume) 11.5 10*3/uL 4.3-11.0 Blood erythrocytes automated count (number/volume) 3.70 10*6/uL 4.35-5.85 Venous blood hemoglobin measurement (mass/volume) 11.2 g/dL 13.3-17.7 Blood hematocrit (volume fraction) 35 % 40-54 Automated erythrocyte mean corpuscular volume 94 [foz_us] 80-99 Automated erythrocyte mean corpuscular hemoglobin (mass per erythrocyte) 30 pg 25-34 Automated erythrocyte mean corpuscular hemoglobin concentration measurement ( mass/volume) 32 g/dL 32-36 Automated erythrocyte distribution width ratio 14.4 % 10.0-14.5 Automated blood platelet count (count/volume) 126 10*3/uL 130-400 Automated blood platelet mean volume measurement 10.9 [foz_us] 7.4-10.4 Automated blood neutrophils/100 leukocytes 76 % 42-75 Automated blood lymphocytes/100 leukocytes 10 % 12-44 Blood monocytes/100 leukocytes 10 % 0-12 Automated blood eosinophils/100 leukocytes 3 % 0-10 Automated blood basophils/100 leukocytes 0 % 0-10 Blood neutrophils automated count (number/volume) 8.7 10*3 1.8-7.8 Blood lymphocytes automated count (number/volume) 1.2 10*3 1.0-4.0 Blood monocytes automated count (number/volume) 1.2 10*3 0.0-1.0 Automated eosinophil count 0.4 10*3/uL 0.0-0.3 Automated blood basophil count (count/volume) 0.0 10*3/uL 0.0-0.1 Comprehensive metabolic panel - 03/17/17 06:51 Serum or plasma sodium measurement (moles/volume) 141 mmol/L 135-145 Serum or plasma potassium measurement (moles/volume) 3.5 mmol/L 3.6-5.0 Serum or plasma chloride measurement (moles/volume) 97 mmol/L 98-107 Carbon dioxide 33 mmol/L 21-32 Serum or plasma anion gap determination (moles/volume) 11 mmol/L 5-14 Serum or plasma urea nitrogen measurement (mass/volume) 19 mg/dL 7-18 Serum or plasma creatinine measurement (mass/volume) 1.15 mg/dL 0.60-1.30 Serum or plasma urea nitrogen/creatinine mass ratio 17 NRG Serum or plasma creatinine measurement with calculation of estimated glomerular filtration rate > NRG Serum or plasma glucose measurement (mass/volume) 135 mg/dL 70-105 Serum or plasma calcium measurement (mass/volume) 8.2 mg/dL 8.5-10.1 Serum or plasma total bilirubin measurement (mass/volume) 1.3 mg/dL 0.1-1.0 Serum or plasma alkaline phosphatase measurement (enzymatic activity/volume) 108 U/L 40-136 Serum or plasma aspartate aminotransferase measurement (enzymatic activity/ volume) 23 U/L 5-34 Serum or plasma alanine aminotransferase measurement (enzymatic activity/volume ) 18 U/L 0-55 Serum or plasma protein measurement (mass/volume) 5.6 g/dL 6.4-8.2 Serum or plasma albumin measurement (mass/volume) 2.9 g/dL 3.2-4.5 Complete blood count (CBC) with automated white blood cell (WBC) differential - 03/18/17 05:49 Blood leukocytes automated count (number/volume) 11.0 10*3/uL 4.3-11.0 Blood erythrocytes automated count (number/volume) 3.97 10*6/uL 4.35-5.85 Venous blood hemoglobin measurement (mass/volume) 11.8 g/dL 13.3-17.7 Blood hematocrit (volume fraction) 37 % 40-54 Automated erythrocyte mean corpuscular volume 93 [foz_us] 80-99 Automated erythrocyte mean corpuscular hemoglobin (mass per erythrocyte) 30 pg 25-34 Automated erythrocyte mean corpuscular hemoglobin concentration measurement ( mass/volume) 32 g/dL 32-36 Automated erythrocyte distribution width ratio 14.3 % 10.0-14.5 Automated blood platelet count (count/volume) 123 10*3/uL 130-400 Automated blood platelet mean volume measurement 11.5 [foz_us] 7.4-10.4 Automated blood neutrophils/100 leukocytes 69 % 42-75 Automated blood lymphocytes/100 leukocytes 13 % 12-44 Blood monocytes/100 leukocytes 13 % 0-12 Automated blood eosinophils/100 leukocytes 5 % 0-10 Automated blood basophils/100 leukocytes 0 % 0-10 Blood neutrophils automated count (number/volume) 7.6 10*3 1.8-7.8 Blood lymphocytes automated count (number/volume) 1.5 10*3 1.0-4.0 Blood monocytes automated count (number/volume) 1.4 10*3 0.0-1.0 Automated eosinophil count 0.5 10*3/uL 0.0-0.3 Automated blood basophil count (count/volume) 0.0 10*3/uL 0.0-0.1 Comprehensive metabolic panel - 03/18/17 05:49 Serum or plasma sodium measurement (moles/volume) 139 mmol/L 135-145 Serum or plasma potassium measurement (moles/volume) 3.7 mmol/L 3.6-5.0 Serum or plasma chloride measurement (moles/volume) 97 mmol/L 98-107 Carbon dioxide 31 mmol/L 21-32 Serum or plasma anion gap determination (moles/volume) 11 mmol/L 5-14 Serum or plasma urea nitrogen measurement (mass/volume) 19 mg/dL 7-18 Serum or plasma creatinine measurement (mass/volume) 0.98 mg/dL 0.60-1.30 Serum or plasma urea nitrogen/creatinine mass ratio 19 NRG Serum or plasma creatinine measurement with calculation of estimated glomerular filtration rate > NRG Serum or plasma glucose measurement (mass/volume) 102 mg/dL 70-105 Serum or plasma calcium measurement (mass/volume) 8.5 mg/dL 8.5-10.1 Serum or plasma total bilirubin measurement (mass/volume) 1.3 mg/dL 0.1-1.0 Serum or plasma alkaline phosphatase measurement (enzymatic activity/volume) 117 U/L 40-136 Serum or plasma aspartate aminotransferase measurement (enzymatic activity/ volume) 22 U/L 5-34 Serum or plasma alanine aminotransferase measurement (enzymatic activity/volume ) 18 U/L 0-55 Serum or plasma protein measurement (mass/volume) 6.3 g/dL 6.4-8.2 Serum or plasma albumin measurement (mass/volume) 3.1 g/dL 3.2-4.5 Encounters ACCT No. Visit Date/Time Discharge Status Pt. Type Provider Facility Loc./Unit Complaint [id number] 03/14/2017 20:56:00 03/20/2017 17:20:00 DIS Inpatient WILMA RODRIGUEZ, SHIKHA Allen [facility] 4TH ACUTE MENTAL STATUS CHANGE [id number] 03/08/2017 22:06:00 03/09/2017 00:27:00 DIS Emergency SILVA HENDERSON DO [facility] ER CATHETER COMING OUT [id number] 01/28/2017 14:33:00 01/28/2017 23:59:59 CLS Outpatient LILIANA ALCOCER MD [facility] WOUNDCARE [id number] 01/16/2017 15:34:00 01/16/2017 23:59:59 CLS Outpatient LILIANA ALCOCER MD [facility] WOUNDCARE [id number] 01/15/2017 12:42:00 01/15/2017 16:23:00 DIS Inpatient MCKEONJOSESITO KENNEY DOI [facility] ICU DYSPNEA [id number] 01/09/2017 14:40:00 01/09/2017 23:59:59 CLS Outpatient LILIANA ALCOCER MD [facility] WOUNDCARE [id number] 01/04/2017 11:34:00 01/04/2017 23:59:59 CLS Outpatient MCKEON DO CALLIE [facility] LAB E78.0 E78.1 Z00.00 E11.65 [id number] 01/04/2017 11:25:00 01/04/2017 23:59:59 CLS Outpatient LILIANA ALCOCER MD [facility] WOUNDCARE [id number] 10/03/2016 12:24:00 10/03/2016 23:59:59 CLS Outpatient MCKEON DO, CALLIE [facility] LAB E11.65 E78.0 E78.1 Z00.00 [id number] 08/30/2016 12:43:00 09/24/2016 16:00:00 DIS Outpatient SHIVA DELGADO APRN [facility] WOUNDCARE [id number] 06/19/2016 14:41:00 06/19/2016 17:00:00 DIS Emergency FERNANDO CASTRO MD [facility] ER ABD PAIN UNABLE TO URINATE/CONSTIPATION [id number] 05/15/2016 17:41:00 05/15/2016 20:34:00 DIS Emergency BURTON MODI APRN [facility] ER L LEG,FOOT SWELLING [id number] 05/07/2016 10:08:00 05/07/2016 23:59:59 CLS Outpatient CALLIE MCKEON DO [facility] LAB E11.65,E78.1,E78.0 [id number] 12/23/2015 10:08:00 12/23/2015 12:00:00 DIS Outpatient LILIANA ALCOCER MD [facility] WOUNDCARE [id number] 12/13/2015 09:29:00 12/13/2015 23:59:59 CLS Outpatient LILIANA ALCOCER MD [facility] RAD PAD [id number] 11/28/2015 15:57:00 11/28/2015 18:05:00 DIS Emergency BURTON MODI APRN [facility] ER RT LEG,FOOT SWELLING [id number] 09/07/2015 11:50:00 09/07/2015 23:59:59 CLS Outpatient CALLIE MCKEON DO [facility] LAB GENERAL ADULT MED EXAM, HYPERGLYCEMIA,HYPERCHOLEST [id number] 08/08/2015 23:06:00 08/09/2015 01:02:00 DIS Emergency MATTHEW RODRIGUEZ, FERNANDO [place]as [facility] ER CATH HAS BLOOD IN IT, BLADDER INFECTION [id number] 06/23/2015 08:23:00 06/23/2015 23:59:59 CLS Outpatient AL TURNER MANAGER EDUCATIONAL [facility] CARD CAD,HLP,ISCHEMIC CARDIOMYOPATHY,CARDIAC PACEMAKER [id number] 06/01/2015 13:04:00 06/01/2015 23:59:59 CLS Outpatient RACHELLE RODRIGUEZ, RUDOLPH Tran [facility] RAD HEMATURIA [id number] 05/09/2015 13:18:00 05/09/2015 15:31:00 DIS Emergency SARY BERNAL DO [facility] ER BLOOD ON CATHETER [id number] 05/03/2015 12:03:00 05/03/2015 23:59:59 CLS Outpatient CALLIE MCKEON DO [facility] LAB HYPERCHOLESTEROLEMIA, MEDS EXAMINATION [id number] 02/18/2015 11:46:00 03/11/2015 14:00:00 DIS Inpatient VICENTA RODRIGUEZ, ABE E [facility] IRF [id number] 02/13/2015 17:30:00 02/18/2015 11:46:00 DIS Inpatient CALLIE MCKEON DO [facility] 4TH CHOLELITHIASIS W/ CHOLECYSTITIS PANCREATITIS UTI [id number] 01/20/2015 10:09:00 01/20/2015 23:59:59 CLS Outpatient CALLIE MCKEON DO [facility] LAB DM TYPE II, HYPERCHOLETEROLMA, GENERAL EXAN [id number] 09/06/2014 13:49:00 09/06/2014 14:21:00 DIS Emergency RICARDA HARTMANN MD [facility] ER CATHETER LEAKING [id number] 03/31/2014 15:23:00 03/31/2014 19:38:00 DIS Emergency MATTHEW RODRIGUEZ, FERNANDO [place]as [facility] ER ABD PAIN [id number] 01/25/2014 16:45:00 01/25/2014 18:01:00 DIS Emergency SHAWN JUDGE [facility] ER CATH PROBLEMS [id number] 11/25/2013 14:00:00 11/25/2013 15:05:00 DIS Emergency SILVA HENDERSON DO [facility] ER ABD PAIN [id number] 10/26/2013 10:03:00 10/26/2013 23:59:59 CLS Outpatient JEAN PAUL RODRIGUEZ FACC, ARI AKINS CCDS [facility] CARD ISCHEMIC CARDIOMETHAPY [id number] 04/19/2013 15:17:00 04/19/2013 19:58:00 DIS Emergency MARVIN RODRIGUEZ, FATEMEH Frazier [facility] ER ABDOMINAL PAIN [id number] 03/02/2013 12:52:00 03/02/2013 15:07:00 DIS Emergency BURTON MODI APRN [facility] ER CONSTIPATION [id number] 04/09/2017 07:21:00 ACT Emergency SILVA HENDERSON DO [facility] ER UNRESPONSIVE [id number] 05/03/2014 21:39:00 Document Registration [id number] 04/30/2014 10:44:00 Document Registration [id number] 04/28/2014 15:31:00 Document Registration [id number] 04/27/2014 16:22:00 Document Registration [id number] 04/23/2011 00:53:00 Document Registration [id number] 07/10/2010 10:52:00 Document Registration [id number] 02/08/2009 09:44:00 Document Registration
[2017-04-09 09:45] VITALS: BP 147/87
--- NOTE | 2017-04-09 09:54 | Consultation ---
History of Present Illness History of Present Illness Patient Consulted On(daniel/time) 04/09/17 09:48 Date Seen by Provider: Apr 09, 2017 Time Seen by Provider: 09:48 History of Present Illness consult requested by Dr. Herrera for IV access. Seen and evaluated in ED Patient is an 86 year old male who was found lethargic at home. Iv access not able to be obtained and a left tibia I/o was placed. Patient with suprapubic catheter that is not functioning. He is leaking urine around it and through penis. He has edema to scrotum. Patient does not communicate any information and no family is present at this time No acute findings on CT of the head. Allergies and Home Medications Allergies Coded Allergies: Penicillins (Verified Allergy, Unknown, Pt has received Ancef & Cefepime in the past, 03/17/17) No Allergy Information Available (Unverified , 04/09/17) Home Medications Benazepril HCl 10 Mg Tablet, 10 MG PO DAILY, (Reported) LAST FILLED #30 01-17-17 Cephalexin 250 Mg Capsule, 500 MG PO QID, #20 Prescribed by: CALLIE MCKEON on 03/20/17 1029 Clopidogrel Bisulfate 75 Mg Tablet, 75 MG PO DAILY, (Reported) LAST FILLED #30 01-17-17 Donepezil HCl 10 Mg Tablet, 10 MG PO HS, (Reported) LAST FILLED #30 01-17-17 Furosemide 40 Mg Tablet, 40 MG PO BID, (Reported) LAST FILLED #60 01-17-17 Hydrocodone Bit/Acetaminophen 1 Tab Tab, 1 TAB PO Q4H PRN for PAIN-MODERATE, #30 Prescribed by: CALLIE MCKEON on 03/20/17 1029 Memantine HCl 10 Mg Tablet, 10 MG PO BID, (Reported) LAST FILLED #60 01-17-17 Metoprolol Tartrate 25 Mg Tablet, 25 MG PO BID, (Reported) LAST FILLED #60 01-17-17 Potassium Chloride 10 Meq Capsule.er, 10 MEQ PO DAILY for 30 Days Prescribed by: CALLIE MCKEON on 03/20/17 1029 Simvastatin 40 Mg Tablet, 40 MG PO HS, (Reported) LAST FILLED #30 01-17-17 Past Haoxydi-Urfjai-Kngohv Hx Patient Social History Alcohol Use: Denies Use Recreational Drug Use: No Smoking Status: Former Smoker Former Smoker, Quit: Mar 04, 2002 Type Used: Cigarettes 2nd Hand Smoke Exposure: No Recent Foreign Travel: No Contact w/Someone Who Travel: No Recent Infectious Disease Expo: No Recent Hopitalizations: No Immunizations Up To Date Tetanus Booster (TDap): Unknown Date of Pneumonia Vaccine: Apr 04, 2011 Date of Influenza Vaccine: Jan 05, 2017 Seasonal Allergies Seasonal Allergies: No Surgeries History of Surgeries: Yes (SUPRAPUBIC CATHETER FOR > 15 YEARS, PACEMAKER, 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"/AAA REPAIR 2002; AMPUTATED TOES; RIGHT INGUINAL HERNIA REPAIR) Surgeries: Abdominal, Bladder Surgery, Gallbladder, Orthopedic, Pacemaker, Vascular Surgery Respiratory History of Respiratory Disorde: Yes Respiratory Disorders: Pneumonia, COPD Cardiovascular History of Cardiac Disorders: Yes (PACEMAKER FOR COMPLETE HEART BLOCK; "AORTIC STENT: CHF/FLUID OVERLOAD; CAROTID BRUIT-CHRONIC RCA OCCLUSION; ISCHEMIC CARDIOMYOPATHY) Cardiac Disorders: Cardiomyopathy, Chronic Edema/Swelling, Coronary Artery Disease, High Cholesterol, Hypertension, Irregular Heartbeat, Peripheral Vascular Neurological History of Neurological Disord: Yes (? NEUROPATHY IN LEGS/FEET? --SON REPORTS PT HAS CHRONIC PAIN TO BILATERAL LOWER LEGS AND FEET; SEVERE DEMENTIA) Neurological Disorders: Dementia, Neuropathy Reproductive System Hx Reproductive Disorders: No Genitourinary History of Genitourinary Disor: Yes (OUTLET OBSTRUCTION WITH SUPRAPUBIC CATHETER > 15 YEARS. CHRONIC SCROTAL EDEMA) Genitourinary Disorders: Bladder Infection, Renal Failure, Neurogenic Bladder, UTI-Chronic Gastrointestinal History of Gastrointestinal Di: Yes (C diff colitis) Gastrointestinal Disorders: Colitis, Gastrointestinal Bleed, Chronic Constipation, C-Diff, Irritable Bowel Musculoskeletal History of Musculoskeletal Dis: Yes (AMPUTATED TOES, GANGRENE; MINIMALLY AMBULATORY) Musculoskeletal Disorders: Amputee, Arthritis, Chronic Back Pain Endocrine History of Endocrine Disorders: Yes Endocrine Disorders: Diabetes, Non-Insulin dep HEENT History of HEENT Disorders: Yes HEENT Disorders: Glaucoma Loss of Vision: Bilateral Hearing Impairment: Hard of Hearing Cancer History of Cancer: No Psychosocial History of Psychiatric Problem: Yes Behavioral Health Disorders: Depression Integumentary History of Skin or Integumenta: Yes (FREQUENT CELLULITIS OF LEGS. CHRONIC LEG WOUNDS) Blood Transfusions History of Blood Disorders: Yes (CHRONIC ANEMIA) Family Medical History Significant Family History: No Pertinent Family Hx Family Medial History: Diabetes mellitus 19 FATHER FH: cancer 19 MOTHER Review of Systems-General ROS-Unable to Obtain: paitent unable to provide due to medical issues. Physical Exam-General Problems Physical Exam Vital Signs Vital Signs - First Documented 04/09/17 07:20 Temp 97.7 Pulse 65 Resp 18 B/P (MAP) 175/93 (120) Pulse Ox 88 O2 Delivery Nasal Cannula O2 Flow Rate 2.00 Capillary Refill : Less Than 3 Seconds General Appearance: no apparent distress HEENT: PERRL/EOMI, normal ENT inspection Neck: full range of motion Respiratory: normal breath sounds, no respiratory distress Cardiovascular: irregularly irregular Gastrointestinal: non tender, soft (suprapubic catheter, leaking urine around it) Genital/Rectal: other (scrotal edema) Back: no CVA tenderness Extremities: other (appears to have full range of motion, left tibial i/o) Neurologic/Psychiatric: No oriented x 3, other (does not follow commands, slightly lethargic) Skin: warm/dry Lymphatic: no adenopathy Data Review Labs Laboratory Tests 04/09/17 07:30: Urine Color YELLOW, Urine Clarity SLIGHTLY CLOUDY, Urine pH 7, Urine Specific [place] 1.010L, Urine Protein 3+H, Urine Glucose (UA) NEGATIVE, Urine Ketones NEGATIVE, Urine Nitrite NEGATIVE, Urine Bilirubin NEGATIVE, Urine Urobilinogen NORMAL, Urine Leukocyte Esterase 3+H, Urine RBC (Auto) 5+H, Urine RBC 2-5H, Urine WBC TNTCH, Urine Squamous Epithelial Cells 2-5, Urine Crystals NONE, Urine Bacteria LARGEH, Urine Casts NONE, Urine Mucus NEGATIVE, Urine Culture Indicated YES 04/09/17 07:36: Glucometer 75 04/09/17 08:30: White Blood Count 15.4H, Red Blood Count 4.87, Hemoglobin 14.7, Hematocrit 45, Mean Corpuscular Volume 93, Mean Corpuscular Hemoglobin 30, Mean Corpuscular Hemoglobin Concent 33, Red Cell Distribution Width 13.3, Platelet Count 120L, Mean Platelet Volume 10.7H, Neutrophils (%) (Auto) 71, Lymphocytes (%) (Auto) 18 , Monocytes (%) (Auto) 10, Eosinophils (%) (Auto) 1, Basophils (%) (Auto) 0, Neutrophils # (Auto) 10.9H, Lymphocytes # (Auto) 2.8, Monocytes # (Auto) 1.5H, Eosinophils # (Auto) 0.2, Basophils # (Auto) 0.0, Neutrophils % (Manual) 85, Lymphocytes % (Manual) 9, Monocytes % (Manual) 3, Eosinophils % (Manual) 3, Basophils % (Manual) 0, Band Neutrophils 0, Blood Morphology Comment NORMAL, Prothrombin Time 14.2, INR Comment 1.1, Activated Partial Thromboplast Time 30, Sodium Level 139, Potassium Level 4.3, Chloride Level 104, Carbon Dioxide Level 21, Anion Gap 14, Blood Urea Nitrogen 25H, Creatinine 1.47H, Estimat Glomerular Filtration Rate 55, BUN/Creatinine Ratio 17, Glucose Level 309H, Calcium Level 9.2, Magnesium Level 1.9, Total Bilirubin 0.8, Aspartate Amino Transf (AST/SGOT ) 19, Alanine Aminotransferase (ALT/SGPT) 14, Alkaline Phosphatase 121, Troponin I < 0.30, Total Protein 7.2, Albumin 3.5, Amylase Level 84, Lipase 42, TSH [place] Testing 6.01H 04/09/17 08:38: Lactic Acid Level 2.95*H 04/09/17 09:01: Glucometer 365H Microbiology 04/09/17 Influenza Types A,B Antigen (REFUGIO) - Final, Complete Assessment/Plan Assessment/Plan Assessment/Plan poor venous access, altered mental status, UTI, malfunctioning suprapubic catheter, scrotal edema patient with io access at this time, he is on plavix and I discussed with Dr. Ackerman which we feel that Midline access would be most appropriate. Will arrange midline to be placed urology consulted for suprapubic malfunctioning PAYTON VAZQUEZ DO Apr 09, 2017 09:54
[2017-04-09 09:58] LABS: FREE T4 (FREE THYROXINE) 0.87 NG/DL (0.70-1.48)
[2017-04-09] MEDS ORDERED: CATHETER FLUSH 10 ML SYR IV PRN (10:00)
[2017-04-09] MEDS ORDERED: inSUlin (REGULAR) HUMAN 1 UNIT/0.01 ML (CHARGE PER UNIT) SC SCH (11:00)
[2017-04-09] MEDS: D5 1/2 NS W/KCL 10 MEQ/L 1,000 ML IV SCH ×2 (11:15→17:51)
[2017-04-09 12:00] VITALS: BP 158/79
--- NOTE | 2017-04-09 13:06 | Diagnostic Imaging Report ---
Procedure: Portable erect AP chest at 12:21. Indication: Central line placement Findings: In the interval since the exam performed earlier today at 7:43 a.m., a central venous catheter has been inserted through the internal jugular vein on the right. The tip of the catheter overlies the distal superior vena cava and seems to be good position.. There is no sign of a pneumothorax and the overall appearance of the chest does not appear to have changed significantly. Impression: 1. There has been interval insertion of a central venous catheter through the internal jugular vein on the right, without apparent complication. The tip of the catheter overlies the cavoatrial junction. 2. A followup study would be recommended for continued evaluation. Dictated by: Dictated on workstation # [id number]
[2017-04-09] MEDS ORDERED: POTA10CA43 PO (13:17)
[2017-04-09] MEDS ORDERED: LORA-404 PO (13:17)
--- NOTE | 2017-04-09 13:44 | History & Physical-Hospitalist ---
HPI History of Present Illness: HPI/Chief Complaint Pt is an 86yoAAM with a PMH of DM, HTN, PVD, CAD, SPT, due to BPH and recurrent UTIs and cellulitis who presented to the ER due to AMS. He does not respond due to his AMS and there is no family at bedside to provide history so all history is obtained from the records. Per ER note his son who he lives with found him this AM with altered mentation and called EMS. EMS reportedly gave 1/2 amp of D50 prior to BS check but through an IO and after the 1/2 amp his BS was 73. He was given another amp in the ER with no improvement in his mentation though blood sugars went to 300s. He was found to be saturated in urine from his penis (nothing coming from SPT). Source: patient Exam Limitations: clinical condition Date Seen 04/09/17 Time Seen by Provider: 09:30 Attending Physician Ivett Corona DO PCP Ivett Corona DO Referring Physician Date of Admission Apr 09, 2017 at 9:04 am Home Medications & Allergies Home Medications Reviewed patient Home Medication Reconciliation Form Allergies Allergies Coded Allergies Penicillins (Verified Allergy, Unknown, Pt has received Ancef & Cefepime in the past, 03/17/17) Past Posuqnf-Lqdrsc-Ipbhlm Hx Patient Social History Alcohol Use: Denies Use Recreational Drug Use: No Smoking Status: Former Smoker Former Smoker, Quit: Mar 04, 2002 Type Used: Cigarettes 2nd Hand Smoke Exposure: No Physical Abuse Screen: No Sexual Abuse: No Recent Foreign Travel: No Contact w/other who traveled: No Recent Hopitalizations: Yes Recent Infectious Disease Expo: No Immunizations Up To Date Tetanus Booster (TDap): Unknown Date of Pneumonia Vaccine: Apr 04, 2011 Date of Influenza Vaccine: Jan 05, 2017 Seasonal Allergies Seasonal Allergies: No Surgeries Yes (BILATERAL LARGE TOE AMPUTATION; AAA REPAIR 2002) Abdominal, Bladder Surgery, Gallbladder, Orthopedic, Pacemaker, Vascular Surgery Respiratory Yes COPD, Pneumonia Currently Using CPAP: No Currently Using BIPAP: No Cardiovascular Yes Cardiomyopathy, Chronic Edema/Swelling, Coronary Artery Disease, High Cholesterol, Hypertension, Irregular Heartbeat, Peripheral Vascular Neurological Yes Dementia, Neuropathy Reproductive System Hx Reproductive Disorders: No Genitourinary Yes Bladder Infection, Renal Failure, Neurogenic Bladder, UTI-Chronic Gastrointestinal Yes (C diff colitis) Colitis, Gastrointestinal Bleed, Chronic Constipation, C-Diff, Irritable Bowel Musculoskeletal Yes (AMPUTATED TOES, GANGRENE; MINIMALLY AMBULATORY) Amputee, Arthritis, Chronic Back Pain Endocrine History of Endocrine Disorders: Yes Endocrine Disorders: Diabetes, Non-Insulin dep Are Your Blood Sugars Over 250: No HEENT History of HEENT Disorders: Yes HEENT Disorders: Glaucoma Loss of Vision: Bilateral Hearing Impairment: Hard of Hearing Cancer No Psychosocial History of Psychiatric Problem: Yes Behavioral Health Disorders: Depression Integumentary History of Skin or Integumenta: Yes (FREQUENT CELLULITIS OF LEGS. CHRONIC LEG WOUNDS) Skin/Integumentary Disorders: Recent Skin Changes Blood Transfusions History of Blood Disorders: Yes (CHRONIC ANEMIA) Family Medical History Significant Family History: No Pertinent Family Hx Family Hx: Diabetes mellitus 19 FATHER FH: cancer 19 MOTHER Review of Systems ROS-Unable to Obtain: unresponsive due to AMS Constitutional: see HPI Physical Exam Physical Exam Vital Signs Vital Signs - First Documented 04/09/17 07:20 Temp 97.7 Pulse 65 Resp 18 B/P (MAP) 175/93 (120) Pulse Ox 88 O2 Delivery Nasal Cannula O2 Flow Rate 2.00 Capillary Refill : Less Than 3 Seconds General Appearance: Chronically ill, Mild Distress HEENT: Other (dry mucus membranes) Respiratory: Lungs Clear, No Respiratory Distress Cardiovascular: Regular Rate, Rhythm, No JVD Gastrointestinal: Normal Bowel Sounds, Non Tender, Soft, Other (large vertical scar in abdomen) Extremity: Normal Capillary Refill, No Pedal Edema Neurologic/Psychiatric: Disoriented x3, Other (somnolent) Results Results/Procedures Lab Laboratory Tests 04/09/17 08:30 Radiology CHEST 1 VIEW, AP/PA ONLY Clinical indication: Patient unresponsive. Exam: Portable chest x-ray upright view. Comparisons: Chest x-ray dated 03/14/2017. Findings: Of note, the lateral aspect of left costophrenic angle is not completely imaged. There is improved aeration compared to the prior study. Lungs are clear. There is no pleural effusion or pneumothorax. Pulmonary vasculature and mediastinal structures are unremarkable. Stable mild cardiomegaly. Again seen cardiac pacemaker overlying left chest with 2 leads projected over the heart. Bones show no acute process and are unremarkable for patient's age. Impression: 1: Stable mild cardiomegaly. There is no significant pulmonary vascular congestion. 2: Otherwise, there is no radiographic evidence of acute cardiopulmonary process. CT HEAD WO-R/O STROKE INDICATION: Unresponsive. COMPARISON STUDY: None. FINDINGS: Noncontrast CT scan the head demonstrates rgnrbkzi-fq-mknema atrophy and white matter changes. No focal areas of ischemia are identified. There is no mass effect midline shift or hemorrhage. The bone windows appear normal. IMPRESSION: There is kohefykb-fc-pzykru atrophy and microvascular disease with no acute findings. Findings were called to the emergency room. Assessment/Plan Admission Diagnosis AMS Diagnosis/Problems Diagnosis/Problems (1) Altered mental status Status: Acute Assessment & Plan: Baseline dementia Further altered from my last exam ~ 3 weeks ago Continue IV abx CT head shows atrophy Qualifiers: Qualified Codes: R40.0 - Somnolence (2) Chronic renal failure Status: Acute Assessment & Plan: Baseline ~1.0, has CLARK currently Continue IVF (3) Sepsis Status: Acute Assessment & Plan: Tachypneic with leukocytosis UA concerning for UTI though may be colonization Will continue IV abx, blood cultures obtained Lactic elevated but improved now No need for 30cc/kg bolus (4) Poor intravenous access Status: Acute Assessment & Plan: IV access team consulted for midline (5) Hypoglycemia Status: Acute Assessment & Plan: Presumed on arrival given marginal BS after dextrose Will monitor Q6 (6) CHF (congestive heart failure), NYHA class III Status: Acute Assessment & Plan: No signs of acute heart failure appears volume deplete clinically Continue IV fluids EF 35% Qualifiers: Qualified Codes: I50.22 - Chronic systolic (congestive) heart failure (7) Diabetes mellitus Status: Chronic Assessment & Plan: SSI with Q6 accu checks A1c 5.1 in January Qualifiers: (8) Suprapubic catheter dysfunction Status: Acute Assessment & Plan: Consult Urology, appreciate recs Qualifiers: Qualified Codes: T83.010A - Breakdown (mechanical) of cystostomy catheter, initial encounter (9) Counseling regarding end of life decision making Assessment & Plan: Discussed patient's status with son and decline over the last month Recommended hospice and son agreed Palliative care consulted, appreciate assistance Clinical Quality Measures DVT/VTE Risk/Contraindication: Risk Factor Score Per Nursin RFS Level Per Nursing on Admit: 4+=Very High SHIKHA DILLON MD Apr 09, 2017 1:44 pm
[2017-04-09 15:30] VITALS: BP 156/73
[2017-04-09] MEDS: inSUlin (REGULAR) HUMAN 1 UNIT/0.01 ML (CHARGE PER UNIT) SC SCH (17:45)
[2017-04-09 19:00] VITALS: BP 170/76
--- NOTE | 2017-04-09 21:47 | OPERATIVE REPORT ---
DATE OF SERVICE: 04/09/2017 PREOPERATIVE DIAGNOSIS: Poor venous access. POSTOPERATIVE DIAGNOSIS: Poor venous access. PROCEDURE: Right internal jugular central line placement ultrasound-guided. ANESTHESIA: 1% lidocaine 3 mL. SURGEON: Payton Del Toro DO. INDICATIONS: The patient is an 86-year-old male who was found lethargic at home. He was found to have urinary tract infection and malfunctioning suprapubic catheter with altered mental status. PROCEDURE: The patient was able to get a left tibial interosseous line placed and was unable to get the IV started. A midline was attempted, which was unsuccessful as well. Consent was obtained for central line placement. The patient was prepped and draped in sterile fashion. Surgical pause was performed. The ultrasound was used to locate the right internal jugular vein. Local anesthetic of 1% lidocaine was used to anesthetize the right neck and the right internal jugular vein was then accessed. Dark nonpulsatile blood was withdrawn. The syringe was removed and the guidewire was inserted and the needle was then removed. An 11-blade scalpel was used to make a small stab incision. The dilator was advanced over the wire and then removed. The triple lumen catheter was then inserted over the wire and the wire was removed. All ports were accessed and flushed without difficulty. The central line was sutured in place. The area was then washed and dried and sterile bandage was applied. The patient tolerated the procedure well without any complications. Chest x-ray pending. Job ID: [id number] DocumentID: [id number] Dictated Date: 04/09/2017 14:51:06 Organization Development Consultant Date: 04/09/2017 21:46:48 Dictated By: PAYTON DEL TORO DO
[2017-04-10] VITALS: BP 135/61
[2017-04-10] MEDS: inSUlin (REGULAR) HUMAN 1 UNIT/0.01 ML (CHARGE PER UNIT) SC SCH ×4 (00:21→16:26)
[2017-04-10] MEDS: D5 1/2 NS W/KCL 10 MEQ/L 1,000 ML IV SCH ×3 (00:27→13:01)
[2017-04-10 04:00] VITALS: BP 136/58
[2017-04-10 06:00] LABS: BASOPHILS % (AUTO) 0 % (0-10); EOSINOPHILS # (AUTO) 0.7 10^3/uL (0.0-0.3); EOSINOPHILS % (AUTO) 6 % (0-10); HEMATOCRIT 40 % (40-54); HEMOGLOBIN 12.8 G/DL (13.3-17.7); LYMPHOCYTES # (AUTO) 1.4 X 10^3 (1.0-4.0); LYMPHOCYTES % (AUTO) 12 % (12-44); MEAN CORPUSCULAR HEMOGLOBIN 30 PG (25-34); MEAN CORPUSCULAR HGB CONC 32 G/DL (32-36); MEAN CORPUSCULAR VOLUME 93 FL (80-99); MEAN PLATELET VOLUME 10.4 FL (7.4-10.4); MONOCYTES # (AUTO) 0.9 X 10^3 (0.0-1.0); MONOCYTES % (AUTO) 8 % (0-12); NEUTROPHILS % (AUTO) 74 % (42-75); PLATELET COUNT 110 10^3/uL (130-400); RED BLOOD COUNT 4.29 10^6/uL (4.35-5.85); RED CELL DISTRIBUTION WIDTH 13.4 % (10.0-14.5); WHITE BLOOD COUNT 12.1 10^3/uL (4.3-11.0)
[2017-04-10 06:28] LABS: ALANINE AMINOTRANSFERASE 10 U/L (0-55); ALBUMIN 3.1 GM/DL (3.2-4.5); ALKALINE PHOSPHATASE 101 U/L (40-136); BILIRUBIN,TOTAL 0.8 MG/DL (0.1-1.0); BUN/CREATININE RATIO 15; CALCIUM 8.4 MG/DL (8.5-10.1); CARBON DIOXIDE 24 MMOL/L (21-32); CHLORIDE 108 MMOL/L (98-107); CREATININE SERUM 0.97 MG/DL (0.60-1.30); GFR ESTIMATED > 60; GLUCOSE 125 MG/DL (70-105); SODIUM 143 MMOL/L (135-145); TOTAL PROTEIN 6.5 GM/DL (6.4-8.2)
[2017-04-10 08:00] VITALS: BP 107/57
--- NOTE | 2017-04-10 08:02 | CONSULTATION REPORT ---
DATE OF SERVICE: 04/10/2017 ATTENDING PHYSICIANS: 1. Dr. Allison Ackerman. 2. Dr. Ivett Corona. SUMMARY: An 86-year-old black man known to me for many years with history of severe urethral strictures and insertion of suprapubic tube catheter, was doing very well on the and changing it every four to six weeks and p.r.n. He has been admitted with sepsis, hypoglycemia and neurological changes. Yesterday, the nurse called me because the catheter was not working properly and there was leakage around it. We went ahead and irrigated free of obstruction and it drained very well after that with no problem. It irrigated nicely with the Sultana syringe and we left it dependent drainage inside of the leg bag to allow better gravity drainage. He has been doing well overnight, draining well with no problems. IMPRESSION: Urethral stricture with neurogenic bladder and a suprapubic tube placement with some problem with it, resolved. PLAN: Hand irrigation p.r.n. and will see him on a p.r.n. basis. Job ID: [id number] DocumentID: [id number] Dictated Date: 04/10/2017 07:30:32 Layout Inspector Date: 04/10/2017 08:02:02 Dictated By: RUDOLPH BUSH MD
[2017-04-10] MEDS ORDERED: cefTRIAXone INJECTION 1,000 MG in NS (IVPB) 50 ML IV SCH (11:00)
--- NOTE | 2017-04-10 11:16 | Progress Note-Hospitalist ---
Subjective HPI/CC On Admission Date Seen by Provider: Apr 10, 2017 Time Seen by Provider: 10:55 Pt is an 86yoAAM with a PMH of DM, HTN, PVD, CAD, SPT, due to BPH and recurrent UTIs and cellulitis who presented to the ER due to AMS. He does not respond due to his AMS and there is no family at bedside to provide history so all history is obtained from the records. Per ER note his son who he lives with found him this AM with altered mentation and called EMS. EMS reportedly gave 1/2 amp of D50 prior to BS check but through an IO and after the 1/2 amp his BS was 73. He was given another amp in the ER with no improvement in his mentation though blood sugars went to 300s. He was found to be saturated in urine from his penis (nothing coming from SPT). Subjective/Events-last exam Pt is more alert today. Complains of pain. When asked how I could help he said "let me get out of here." When I clarified if he wanted to leave the hospital he agreed. Objective Exam Vital Signs Vital Signs Date Time Temp Pulse Resp B/P (MAP) Pulse Ox O2 Delivery O2 Flow Rate FiO2 04/09/17 07:20 Nasal Cannula 2.00 04/09/17 07:20 97.7 65 18 175/93 (120) 88 Capillary Refill : Less Than 3 Seconds General Appearance: Chronically ill HEENT: Other (dry mucus membranes) Respiratory: No Respiratory Distress, Decreased Breath Sounds Cardiovascular: Regular Rate, Rhythm, No JVD Gastrointestinal: Normal Bowel Sounds, Non Tender, Soft Extremity: No Pedal Edema, Other (venous statis dermatitis) Results/Procedures Lab Laboratory Tests 04/10/17 05:43 Assessment/Plan Assessment and Plan Assess & Plan/Chief Complaint UTI Diagnosis/Problems Diagnosis/Problems (1) Sepsis Status: Resolved Assessment & Plan: Tachypneic with leukocytosis UA growing klebsiella, enterbacter, and proteus Will continue IV abx, blood cultures obtained and pending Lactic elevated but improved now (2) Altered mental status Status: Acute Assessment & Plan: Baseline dementia Further altered from my last exam ~ 3 weeks ago but somewhat improved today Continue IV abx CT head shows atrophy Qualifiers: Qualified Codes: R40.0 - Somnolence (3) Chronic renal failure Status: Chronic Assessment & Plan: Baseline ~1.0, has CLARK currently Continue IVF (4) Poor intravenous access Status: Acute Assessment & Plan: Dr Del Toro placed central line (5) Hypoglycemia Status: Acute Assessment & Plan: LEIGHANN RONQUILLO currently Will monitor Q6 (6) CHF (congestive heart failure), NYHA class III Status: Acute Assessment & Plan: No signs of acute heart failure appears volume deplete clinically Continue IV fluids EF 35% Qualifiers: Qualified Codes: I50.22 - Chronic systolic (congestive) heart failure (7) Diabetes mellitus Status: Chronic Assessment & Plan: SSI with Q6 accu checks A1c 5.1 in January Qualifiers: Qualified Codes: E11.8 - Type 2 diabetes mellitus with unspecified complications (8) Suprapubic catheter dysfunction Status: Acute Assessment & Plan: Consult Urology, appreciate recs Qualifiers: Qualified Codes: T83.010A - Breakdown (mechanical) of cystostomy catheter, initial encounter (9) Counseling regarding end of life decision making Assessment & Plan: Discussed patient's status with son yesterday and decline over the last month Recommended hospice and son agreed Palliative care consulted, appreciate assistance Son will be here this afternoon to discuss options further SHIKHA DILLON MD Apr 10, 2017 11:16 am
[2017-04-10 12:00] VITALS: BP 123/59
--- NOTE | 2017-04-10 14:22 | Physician Query Clarification ---
PQ-Link Infection to Dev/Proc Admission/Discharge Admission Date: Apr 09, 2017 at 09:04 Discharge Date: The medical record reflects the following clinical scenario: History/Risk Factors: Sepsis Suprapubic Catheter Clinical Findings: Malfunctioning suprapubic catheter with leakage around it. Positive urine culture showing Klebsiella pneumoniae >100,000/ML and Proteus mirabilis 10,000/ML-100,000/ML Treatment: IV Ceftriaxone Sodium 1,000mg/Sodium Chloride, Irrigation of catheter by Dr. You. Question: Can you specify if the Sepsis/UTI infection is due to/associated with [device or procedure]? Please document a response below. PHYSICIAN RESPONSE Specify if infection: Yes,due to/associated with device Explanation of clincal finding suprapubic tube In responding to this query, please exercise your independent professional judgment. The purpose of this communication is to more accurately reflect the complexity of your patients condition. The fact that a question is asked does not imply that any particular answer is desired or expected. Thank you for your timely response to this clarification. Requestors name: Lacey Sanabria [facility] Phone # ext [phone] or [phone] THIS PHYSICIAN QUERY FORM IS A PERMANENT PART OF THE MEDICAL RECORD LACEY SANABRIA Apr 10, 2017 14:22 SHIKHA DILLON MD Apr 10, 2017 15:55
[2017-04-10] MEDS ORDERED: morphine IMMEDIATE RELEASE 15 MG TABLET PO PRN (15:00)
[2017-04-10] MEDS ORDERED: ATROPINE 1% OPHTHALMIC SOLN 2 ML SL PRN (15:00)
[2017-04-10] MEDS ORDERED: SALIVA STIMULANT MOUTH SPRAY (BIOTENE) 1.5 OZ MM PRN (15:00)
[2017-04-10] MEDS ORDERED: morphine (ROXINOL) 10 MG/0.5 ML oral conc 0.5 ML PO PRN (15:00)
[2017-04-10] MEDS ORDERED: PROMETHAZINE INJ 25 MG/ML (PHENERGAN) AMP IVP PRN (15:00)
[2017-04-10] MEDS ORDERED: ARTIFICAL TEARS 0.4 ML UNIT DOSE (REFRESH PLUS) OU PRN (15:00)
[2017-04-10] MEDS ORDERED: SCOPOLAMINE 1.5 MG (TRANSDERM-SCOP) PATCH TOP SCH (15:00)
[2017-04-10] MEDS ORDERED: ONDANSETRON 4 MG/2 ML (SDV) Z0FRAN IVP PRN (15:00)
[2017-04-10] MEDS ORDERED: ACETAMINOPHEN 650 MG SUPP (TYLENOL) PR PRN (15:00)
[2017-04-10] MEDS ORDERED: GLYCOPYRROLATE 0.2 MG/ML (ROBINUL) 2 ML VIAL IV PRN (15:00)
[2017-04-10] MEDS ORDERED: ARTIFICIAL TEARS OINT (LACRI-LUBE) 3.5 GM TUBE OU PRN (15:00)
[2017-04-10] MEDS ORDERED: RT-ALBUTEROL/IPRATROPIUM 3 ML (DUONEB) VIAL INH PRN (15:00)
[2017-04-10] MEDS ORDERED: BISACODYL 10 MG SUPP (DULCOLAX) PR PRN (15:00)
[2017-04-10 16:37] VITALS: BP 134/63
[2017-04-10] MEDS: morphine INJ 4 MG/ML 1 ML (VIAL/SYRINGE) IV PRN ×3 (16:39→22:35)
[2017-04-10] MEDS: LORazepam INJ 2 MG/ML (ATIVAN) VIAL IVP PRN (21:05)
--- NOTE | 2017-04-11 13:22 | Progress Note-Hospitalist ---
Subjective HPI/CC On Admission Date Seen by Provider: Apr 11, 2017 Time Seen by Provider: 09:15 Pt is an 86yoAAM with a PMH of DM, HTN, PVD, CAD, SPT, due to BPH and recurrent UTIs and cellulitis who presented to the ER due to AMS. He does not respond due to his AMS and there is no family at bedside to provide history so all history is obtained from the records. Per ER note his son who he lives with found him this AM with altered mentation and called EMS. EMS reportedly gave 1/2 amp of D50 prior to BS check but through an IO and after the 1/2 amp his BS was 73. He was given another amp in the ER with no improvement in his mentation though blood sugars went to 300s. He was found to be saturated in urine from his penis (nothing coming from SPT). Subjective/Events-last exam Patient mostly groans. Does not form any words. Objective Exam Vital Signs Vital Signs Date Time Temp Pulse Resp B/P (MAP) Pulse Ox O2 Delivery O2 Flow Rate FiO2 04/09/17 07:20 Nasal Cannula 2.00 04/09/17 07:20 97.7 65 18 175/93 (120) 88 Capillary Refill : Less Than 3 Seconds General Appearance: No Apparent Distress, WD/WN Respiratory: Lungs Clear, No Respiratory Distress Cardiovascular: Regular Rate, Rhythm Neurologic/Psychiatric: Alert, Disoriented x3 Assessment/Plan Assessment and Plan Assess & Plan/Chief Complaint UTI Diagnosis/Problems Diagnosis/Problems (1) Sepsis Status: Resolved Assessment & Plan: Sepsis improved but transition to comfort measures so antibiotics discontinued (2) Altered mental status Status: Acute Assessment & Plan: Baseline dementia Further altered from my last exam ~ 3 weeks ago but somewhat improved today CT head shows atrophy Qualifiers: Qualified Codes: R40.0 - Somnolence (3) Chronic renal failure Status: Chronic (4) Poor intravenous access Status: Acute Assessment & Plan: Dr Del Toro placed central line (5) Hypoglycemia Status: Acute Assessment & Plan: BS WNL currently DC monitoring for comfort care (6) CHF (congestive heart failure), NYHA class III Status: Acute Assessment & Plan: No signs of acute heart failure appears volume deplete clinically EF 35% Qualifiers: Qualified Codes: I50.22 - Chronic systolic (congestive) heart failure (7) Diabetes mellitus Status: Chronic Assessment & Plan: A1c 5.1 in January Qualifiers: Qualified Codes: E11.8 - Type 2 diabetes mellitus with unspecified complications (8) Suprapubic catheter dysfunction Status: Acute Assessment & Plan: Consult Urology, appreciate recs Qualifiers: Qualified Codes: T83.010A - Breakdown (mechanical) of cystostomy catheter, initial encounter (9) Counseling regarding end of life decision making Assessment & Plan: Discussed patient's status with son 2/6 and 2/7 and decline over the last month Recommended hospice and son agreed Son has selected [facility]- will work on placement to [place] with hospice Palliative care consulted, appreciate assistance SHIKHA DILLON MD Apr 11, 2017 1:22 pm
[2017-04-11] MEDS: LORazepam INJ 2 MG/ML (ATIVAN) VIAL IVP PRN (15:53)
[2017-04-11] MEDS: morphine INJ 4 MG/ML 1 ML (VIAL/SYRINGE) IV PRN (15:53)
[2017-04-11] MEDS ORDERED: FUROSEMIDE 40 MG/4 ML INJ (LASIX) IVP ONE (17:00)
[2017-04-12] MEDS: morphine INJ 4 MG/ML 1 ML (VIAL/SYRINGE) IV PRN ×4 (00:23→13:16)
[2017-04-12] MEDS: LORazepam INJ 2 MG/ML (ATIVAN) VIAL IVP PRN (02:13)
--- NOTE | 2017-04-12 08:48 | Discharge Summary-Hospitalist ---
Diagnosis/Chief Complaint Date of Admission Apr 09, 2017 at 9:04 am Date of Discharge Discharge Date: Apr 12, 2017 Admission Diagnosis AMS Discharge Diagnosis UTI (1) Sepsis Status: Resolved Assessment & Plan: Sepsis improved but transition to comfort measures so antibiotics discontinued (2) Altered mental status Status: Acute Assessment & Plan: Baseline dementia Further altered from my last exam ~ 3 weeks ago but somewhat improved today CT head shows atrophy (3) Chronic renal failure Status: Chronic (4) Poor intravenous access Status: Acute Assessment & Plan: Dr Del Toro placed central line (5) Hypoglycemia Status: Acute Assessment & Plan: LEIGHANN RONQUILLO currently DC monitoring for comfort care (6) CHF (congestive heart failure), NYHA class III Status: Acute Assessment & Plan: No signs of acute heart failure appears volume deplete clinically EF 35% (7) Diabetes mellitus Status: Chronic Assessment & Plan: A1c 5.1 in January (8) Suprapubic catheter dysfunction Status: Acute Assessment & Plan: Consult Urology, appreciate recs (9) Counseling regarding end of life decision making Assessment & Plan: Discussed patient's status with son 6 and 7 and decline over the last month Recommended hospice and son agreed Son has selected [facility]- will work on placement to [place] with hospice Palliative care consulted, appreciate assistance Discharge Summary Discharge Physical Examination Allergies: Coded Allergies: Penicillins (Verified Allergy, Unknown, Pt has received Ancef & Cefepime in the past, 03/17/17) Vitals & I&Os Vital Signs Date Time Temp Pulse Resp B/P (MAP) Pulse Ox O2 Delivery O2 Flow Rate FiO2 04/12/17 08:00 Nasal Cannula 2.00 04/11/17 21:04 87 04/10/17 16:37 98.3 75 16 134/63 (86) Hospital Course Pt presented to the ER with acutely altered mental status. He is known to me from previous admissions and has continued to decompensate since his last admission last month. He found found to be septic likely from a urinary source. He admitted to the floor for antibiotics and discussions were had with his family about his wishes regarding end of life care. They acknowledged that he has continued to worsening and felt he would not want continued aggressive measures and readmissions. They elected hospice care and he was discharged to NH for hospice care and comfort measures. Labs (last 24 hrs) Microbiology 04/09/17 Blood Culture - Preliminary, Resulted No growth 04/09/17 Influenza Types A,B Antigen (REFUGIO) - Final, Complete 04/09/17 Urine Culture - Final, Complete Klebsiella pneumoniae Proteus mirabilis Discharge Home Medications: Active Scripts Active Atropine Sulfate 2 Ml Drops 1 Ml SL Q6H PRN Transderm-Scop (Scopolamine) 1 Each Patch.td72 1.5 Mg TOP Q72H Morphine Sulfate Concentrate 20mg/ml (Morphine Sulfate) 100 Mg/5 Ml Solution 0.5 Mg PO Q2H PRN Hydrocodone/Acetaminophen 5/325mg Tablet (Acetaminophen/Hydrocodone Bitart) 1 Tab Tab 1 Tab PO Q4H PRN Reported Ativan (Lorazepam) 0.5 Mg Tablet 0.5 Mg PO Q6H PRN Potassium Chloride 10 Meq Capsule.er 10 Meq PO DAILY Metoprolol Tartrate 25 Mg Tablet 25 Mg PO BID Clopidogrel (Clopidogrel Bisulfate) 75 Mg Tablet 75 Mg PO DAILY Memantine HCl 10 Mg Tablet 10 Mg PO BID Donepezil HCl 10 Mg Tablet 10 Mg PO HS Simvastatin 40 Mg Tablet 40 Mg PO HS Furosemide 40 Mg Tablet 40 Mg PO BID Benazepril HCl 10 Mg Tablet 10 Mg PO DAILY Instructions to patient/family Please see electronic discharge instructions given to patient. Clinical Quality Measures DVT/VTE Risk/Contraindication: Risk Factor Score Per Nursin RFS Level Per Nursing on Admit: 4+=Very High Comfort Measures/ Type of Care: Comfort Measures, Hospice Care (Home) Copy Copies To 1: CALLIE MCKEON DO Problem Qualifiers (1) Altered mental status: Altered mental status type: somnolence Qualified Codes: R40.0 - Somnolence (2) CHF (congestive heart failure), NYHA class III: Congestive heart failure type: systolic Congestive heart failure chronicity: chronic Qualified Codes: I50.22 - Chronic systolic (congestive) heart failure (3) Diabetes mellitus: Diabetes mellitus type: type 2 Diabetes mellitus complication status: with unspecified complications Diabetes mellitus alf insulin use: without alf use Qualified Codes: E11.8 - Type 2 diabetes mellitus with unspecified complications (4) Suprapubic catheter dysfunction: Encounter type: initial encounter Qualified Codes: T83.010A - Breakdown ( mechanical) of cystostomy catheter, initial encounter SHIKHA DILLON MD Apr 12, 2017 8:48 am
[2017-04-12] MEDS ORDERED: SCOP1PAT TOP (08:55)
[2017-04-12] MEDS ORDERED: ATRO2DRO4 SL (08:55)
[2017-04-12] MEDS ORDERED: MORP100S3 PO (08:55)
[2017-04-12 15:06] VITALS: BP 134/63
[2017-04-13] MEDS ORDERED: SCOPOLAMINE PATCH REMOVAL TP SCH (14:59)
== END 2017-04-12 15:09 | disposition hospice, home (50) | DRG 698 ==
LOC: EDUNIT# 07:20 → ER 07:21 → 4TH 09:04
PROVIDERS: ADMIT Family Medicine; ATTEND Internal Medicine
PROC: 02HV33Z Insertion of Infusion Device into Superior Vena Cava, Percutaneous Approach (ICD-10-PCS; principal; 2017-04-09)
DX: T83.510A Infection and inflammatory reaction due to cystostomy catheter, initial encounter (principal); T83.010A Breakdown (mechanical) of cystostomy catheter, initial encounter; A41.9 Sepsis, unspecified organism; N39.0 Urinary tract infection, site not specified; N17.9 Acute kidney failure, unspecified; I13.0 Hypertensive heart and chronic kidney disease with heart failure and stage 1 through stage 4 chronic kidney disease, or unspecified chronic kidney disease; I50.22 Chronic systolic (congestive) heart failure; N18.9 Chronic kidney disease, unspecified; Z66 Do not resuscitate; E11.649 Type 2 diabetes mellitus with hypoglycemia without coma; I25.5 Ischemic cardiomyopathy; J44.9 Chronic obstructive pulmonary disease, unspecified; N31.9 Neuromuscular dysfunction of bladder, unspecified; E86.0 Dehydration; F03.90 Unspecified dementia, unspecified severity, without behavioral disturbance, psychotic disturbance, mood disturbance, and anxiety; I25.10 Atherosclerotic heart disease of native coronary artery without angina pectoris; E11.51 Type 2 diabetes mellitus with diabetic peripheral angiopathy without gangrene; E11.40 Type 2 diabetes mellitus with diabetic neuropathy, unspecified; D64.9 Anemia, unspecified; E78.00 Pure hypercholesterolemia, unspecified; F32.9 Major depressive disorder, single episode, unspecified; N35.9 Urethral stricture, unspecified; H40.9 Unspecified glaucoma; N50.89 Other specified disorders of the male genital organs; I87.2 Venous insufficiency (chronic) (peripheral); K58.9 Irritable bowel syndrome, unspecified; Z95.0 Presence of cardiac pacemaker; Z87.891 Personal history of nicotine dependence; Z89.411 Acquired absence of right great toe; Z89.412 Acquired absence of left great toe
CPT/HCPCS: 36415; 70450; 71045; 80053; 81000; 82150; 82962; 83605; 83690; 83735; 84439; 84443; 84484; 85007; 85025; 85027; 85610; 85730; 87040; 87077; 87088; 87186; 87804; 93005; 93041; 94760; 96361; 96374; 96375